=== PATIENT | female | born 1935 | race Hispanic/Latino ===

== ENCOUNTER → 2018-03-10 | Outpatient (CLI) | payer OTHER, MEDICARE ==
[~2018-03-10] MED LIST: ATEN50TA PO; CHLO25TA3 PO; CLON0.1T PO; DOCU100T9 PO; DRON400T2 PO; FURO40TA5 PO; NITR0.4T SL; ROSU20TA PO; SITA25TA5 PO; VERA300C2 PO
== END | disposition home or self-care (01) ==
LOC: SHCH 09:11
PROVIDERS: ATTEND Internal Medicine Cardiovascular Disease
DX: I50.20 Unspecified systolic (congestive) heart failure (principal)
CPT/HCPCS: 93306

== ENCOUNTER 2018-11-07 17:53 | Emergency (ER) | payer OTHER, MEDICARE ==
[~2018-11-07 17:53] MED LIST changes: -ROSU20TA PO; +ROSU20TA23 PO
[2018-11-07] MEDS ORDERED: OCTYL 2-CYANOACRYLATE 1 EACH TP ONE (18:08)
[2018-11-07] MEDS ORDERED: ACETAMINOPHEN EXTRA STRENGTH 500 MG TABLET ONE (18:37)
[2018-11-07] MEDS ORDERED: TETANUS/DIPHTHERIA TOXOID [ADULT] 0.5 ML VIAL IM ONE (18:42)
== END 2018-11-07 19:16 | disposition home or self-care (01) ==
LOC: EDH 17:53
DX: S51.811A Laceration without foreign body of right forearm, initial encounter (principal); M19.90 Unspecified osteoarthritis, unspecified site; I10 Essential (primary) hypertension; E11.9 Type 2 diabetes mellitus without complications; W01.0XXA Fall on same level from slipping, tripping and stumbling without subsequent striking against object, initial encounter; Y93.01 Activity, walking, marching and hiking; Y92.89 Other specified places as the place of occurrence of the external cause; Y99.8 Other external cause status
CPT/HCPCS: 12001; 73090; 73130; 90471; 90714

== ENCOUNTER 2018-12-10 10:23 | Observation (INO) | payer OTHER, MEDICARE ==
[~2018-12-10] VITALS: Ht 157.5 cm; Wt 74.8 kg
[2018-12-10 11:08] LABS: BASOPHILS % (AUTO) 0.2 % (0.0-5.0); HEMATOCRIT 33.9 % (36-48); LYMPHOCYTES % (AUTO) 3.9 % (21.0-51.0); MEAN CORPUSCULAR HEMOGLOBIN 30.2 pg (27.0-33.0); MEAN CORPUSCULAR HGB CONC 32.6 g/dL (32.0-36.0); MEAN CORPUSCULAR VOLUME 92.5 fL (79-99); MONOCYTES % (AUTO) 0.9 % (3.0-13.0); PLATELET COUNT (AUTO) 224 K/uL (130-400); RED BLOOD CELL COUNT(AUTO) 3.66 MIL/uL (4.00-5.50); RED CELL DISTRIBUTION WIDTH 18.2 % (11.0-15.5)
[2018-12-10 11:12] LABS: ALANINE AMINOTRANSFERASE 43 U/L (12-78); ALBUMIN 3.5 g/dL (3.5-5.0); ASPARTATE AMINOTRANSFERASE 32 U/L (10-37); BILIRUBIN,DIRECT 0.1 mg/dL (0.0-0.3); BILIRUBIN,TOTAL 0.4 mg/dL (0.2-1.0); CARBON DIOXIDE 27 mmol/L (21-32); CHLORIDE 94 mmol/L (101-111); CREATINE KINASE, TOTAL 183 U/L (21-232); CREATININE 3.7 mg/dL (0.5-1.5); GLOMERULAR FILTR. RATE CALC 12 mL/min (>60); GLUCOSE,RANDOM 255 mg/dL (70-105); LIPASE 440 U/L (114-286); POTASSIUM 4.5 mmol/L (3.5-5.1); SODIUM SERUM 132 mmol/L (136-145); TOTAL PROTEIN, SERUM 7.5 g/dL (6.0-8.3)
[2018-12-10 11:17] LABS: APPEARANCE,URINE Clear (CLEAR); BILIRUBIN,URINE Negative (NEGATIVE); COLOR,URINE Yellow (YELLOW); GLUCOSE, URINE (UA) Negative (NEGATIVE); KETONES,URINE Negative (NEGATIVE); LEUKOCYTE ESTERASE ,URINE Trace (NEGATIVE); NITRATE,URINE Negative (NEGATIVE); OCCULT BLOOD,URINE Negative (NEGATIVE); PH,URINE 5.5 (5.0-8.0); PROTEIN,URINE POS 2+ mg/dL (NEGATIVE)
[2018-12-10 11:25] LABS: UREA NITROGEN, BLOOD 87 mg/dL (7-18)
[2018-12-10] MEDS ORDERED: CALCIUM GLUCONATE 1 GM/10 ML VIAL IV ONE (11:56)
[2018-12-10 11:57] LABS: BACTERIA,URINE Rare /HPF (None Seen); SQUAMOUS EPITHELIAL CELL,UR Rare /HPF (0-2); WBC,URINE 0-1 /HPF (0-1)
[2018-12-10] MEDS ORDERED: SODIUM CHLORIDE 0.9% 100 ML IV ONE (11:57)
[2018-12-10] MEDS ORDERED: LACTATED RINGERS 1000ML 1,000 ML IV ONE ×2 (13:44→13:46)
[2018-12-10 14:15] VITALS: BP 187/99
--- NOTE | 2018-12-10 15:00 | NUR ---
ARRIVAL TO FLOOR PT IS AAOX4 DENIES CP DENIES SOB DENIES NV NO COMPLAINTS RESTING IN BED, ARRIVED WITH ORDERS. FAMILY IS AT BEDSIDE. CALL LIGHT WITHIN REACH.
[2018-12-10] MEDS ORDERED: CALC1CAP22 PO (15:01)
[2018-12-10] MEDS ORDERED: FURO40TA5 PO (15:01)
[2018-12-10] MEDS ORDERED: IRON18TA PO (15:01)
[2018-12-10] MEDS ORDERED: CETI10TA57 PO (15:01)
[2018-12-10] MEDS ORDERED: VIT B12 PO (15:01)
[2018-12-10] MEDS ORDERED: OMEP-50 PO (15:01)
[2018-12-10] MEDS ORDERED: ACETAMINOPHEN 325 MG TAB PO PRN (15:15)
[2018-12-10] MEDS ORDERED: DEXTROSE 50%-WATER 50 ML DISP.SYRIN IV PRN (15:15)
[2018-12-10] MEDS ORDERED: GLUCAGON 1MG KIT 1 MG ML IM PRN (15:15)
[2018-12-10] MEDS ORDERED: ONDANSETRON HCL 4 MG/2 ML VIAL IVP PRN (15:15)
[2018-12-10] MEDS ORDERED: LACTATED RINGERS 1000ML 1,000 ML IV SCH (15:15)
[2018-12-10] MEDS ORDERED: HYDRALAZINE HCL 20 MG/ML VIAL IV PRN (15:15)
--- NOTE | 2018-12-10 15:30 | NUR ---
DR BARRETT MADE AWARE OF PATIENTS ARRIVAL TO FLOOR. STATES HE WILL COME BY LATER TO SEE PATIENT.
[2018-12-10 16:00] VITALS: BP 170/75
[2018-12-10] MEDS: INSULIN R PO SS1 SQ SCH ×2 (16:27→20:43)
--- NOTE | 2018-12-10 17:30 | NUR ---
STATUS RESTING IN BED, TOLERATED DINNER, FAMILY IS AT BEDSIDE.
[2018-12-10 19:03] VITALS: BP 149/77
[2018-12-10] MEDS: CALCIUM 600 + VITAMIN D 400 TABLET PO SCH (20:38)
[2018-12-10 23:39] VITALS: BP 164/83
[2018-12-11] VITALS (7 sets, daily range): BP systolic 145–201; BP diastolic 68–83
[2018-12-11] MEDS: INSULIN R PO SS1 SQ SCH ×4 (05:58→21:00)
[2018-12-11] MEDS: CALCIUM 600 + VITAMIN D 400 TABLET PO SCH ×3 (09:15→20:41)
[2018-12-11] MEDS ORDERED: PRED20 PO (11:32)
[2018-12-11] MEDS ORDERED: [UNRECOGNIZED DRUG - OTHER] PO (11:36)
--- NOTE | 2018-12-11 12:47 | NUR ---
RE: NEPHRO CONSULT SPOKE WITH DR. BARRETT AND INFORMED OF THE CONSULT. SEE NEW ORDERS. SAID THAT HE WILL SEE PATIENT TODAY.
[2018-12-11] MEDS ORDERED: CALCIUM GLUCONATE 1 GM in SODIUM CHLORIDE 0.9% 50 ML IV SCH (14:00)
[2018-12-11] MEDS ORDERED: CALCIUM CARBONATE 500 MG TABLET PO SCH (14:00)
[2018-12-11 14:51] LABS: CARBON DIOXIDE 27 mmol/L (21-32); CHLORIDE 95 mmol/L (101-111); CREATININE 2.6 mg/dL (0.5-1.5); GLOMERULAR FILTR. RATE CALC 19 mL/min (>60); GLUCOSE,RANDOM 203 mg/dL (70-105); POTASSIUM 3.4 mmol/L (3.5-5.1); SODIUM SERUM 132 mmol/L (136-145); UREA NITROGEN, BLOOD 69 mg/dL (7-18)
[2018-12-11] MEDS: CALCIUM GLUCONATE 1 GM in SODIUM CHLORIDE 0.9% 50 ML IV PRN (14:58)
--- NOTE | 2018-12-11 19:36 | NUR ---
cm note met with patient and daughter velma, pt states resides with son diana moya, no dme. pt independent with ambulation, does have a provider 3 1/2hrs daily to assist with adls. no dc needs. dc plan is back to home Addendum: 12/11/18 at 1938 by ANASTASIYA GILLIS CM Amended: Links added.
[2018-12-11] MEDS ORDERED: CLONIDINE HCL 0.1 MG TABLET PO PRN (20:00)
[2018-12-11] MEDS ORDERED: NITROGLYCERIN 0.4 MG SL TAB SL SCH (20:00)
[2018-12-11] MEDS ORDERED: DRONEDARONE HYDROCHLORIDE 400 MG TABLET PO SCH (21:00)
[2018-12-11] MEDS ORDERED: FERROUS SULFATE 325 MG TABLET.DR PO SCH (21:00)
[2018-12-11] MEDS ORDERED: DOCUSATE SODIUM 100 MG CAP PO SCH (21:00)
[2018-12-11] MEDS ORDERED: ATENOLOL 50 MG TABLET PO SCH (21:00)
[2018-12-11] MEDS ORDERED: CYANOCOBALAMIN (VITAMIN B-12) 1,000 MCG TABLET PO SCH (21:00)
[2018-12-11] MEDS ORDERED: Chlorthalidone 25 MG PO SCH (21:00)
[2018-12-11] MEDS ORDERED: CETIRIZINE HCL 5 MG TABLET PO SCH (21:00)
[2018-12-11] MEDS ORDERED: ATORVASTATIN CALCIUM 40 MG TABLET PO SCH (21:00)
[2018-12-11] MEDS ORDERED: PANTOPRAZOLE SODIUM 40 MG TABLET.DR PO SCH (21:00)
[2018-12-11] MEDS ORDERED: LINAGLIPTIN 5 MG TABLET PO SCH (21:00)
[2018-12-11] MEDS: [UNRECOGNIZED DRUG - OTHER] PO SCH (21:04)
[2018-12-12 03:19] VITALS: BP_SYST 130; BP_SYST 139; BP_DIAS 50; BP_DIAS 87
[2018-12-12 04:14] LABS: ALBUMIN 2.7 g/dL (3.5-5.0); CREATININE 2.5 mg/dL (0.5-1.5); PHOSPHORUS 5.4 mg/dL (2.5-4.9); POTASSIUM 3.8 mmol/L (3.5-5.1)
[2018-12-12] MEDS: INSULIN R PO SS1 SQ SCH ×2 (06:18→11:30)
[2018-12-12 07:37] VITALS: BP 157/63
[2018-12-12] MEDS: CALCIUM GLUCONATE 1 GM in SODIUM CHLORIDE 0.9% 50 ML IV PRN ×2 (08:44→09:49)
[2018-12-12] MEDS: [UNRECOGNIZED DRUG - OTHER] PO SCH (08:51)
[2018-12-12] MEDS ORDERED: CALCIUM 600 + VITAMIN D 400 TABLET PO SCH (09:00)
[2018-12-12] MEDS ORDERED: CALCIUM GLUCONATE 1 GM in DEXTROSE 5%-WATER 50 ML IV PRN (10:00)
--- NOTE | 2018-12-12 11:21 | NUR ---
DR. Lala HAILE IN ROOM SPEAKING WITH PT. AND PT.'S FAMILY MEMBERS AT BEDSIDE RE:PLAN OF CARE. QUESTIONS ANSWERED BY DR. Lala HAILE.
[2018-12-12 11:32] VITALS: BP 164/60
--- NOTE | 2018-12-12 12:48 | NUR ---
AMBULATING IN HALLWAY WITH STEADY GAIT ACCOMPANIED BY DAUGHTER.
--- NOTE | 2018-12-12 13:58 | NUR ---
DR. Mynor BARRETT IN ROOM SPEAKING WITH PT. AND FAMILY MEMBERS AT BEDSIDE RE:DISCHARGE DISPOSITION. QUESTIONS ANSWERED BY DR. BARRETT.
--- NOTE | 2018-12-12 14:35 | NUR ---
HL REMOVED, CATHETER INTACT. DISCHARGE INSTRUCTIONS GIVEN TO PT. AND PT.'S DAUGHTER AT BEDSIDE, VERBALIZED MUTUAL UNDERSTANDING.
--- NOTE | 2018-12-12 15:54 | NUR ---
DISCHARGED HOME VIA W/C WITH BELONGINGS ACCOMPANIED BY SARMAD GIRALDO.
== END 2018-12-12 15:53 | disposition home or self-care (01) ==
LOC: EDH 10:23 → 2AH 13:19
PROVIDERS: ADMIT Internal Medicine Pulmonary Disease; ATTEND Internal Medicine Pulmonary Disease
DX: E83.51 Hypocalcemia (principal); I12.0 Hypertensive chronic kidney disease with stage 5 chronic kidney disease or end stage renal disease; E11.22 Type 2 diabetes mellitus with diabetic chronic kidney disease; N18.5 Chronic kidney disease, stage 5; E03.9 Hypothyroidism, unspecified; E11.21 Type 2 diabetes mellitus with diabetic nephropathy; D64.9 Anemia, unspecified; E66.01 Morbid (severe) obesity due to excess calories; E86.0 Dehydration; Z79.4 Long term (current) use of insulin; Z79.899 Other long term (current) drug therapy; Z68.30 Body mass index [BMI] 30.0-30.9, adult
CPT/HCPCS: 36415 ×3; 80048 ×2; 80069; 80076; 81001; 82306 ×2; 82330 ×2; 82550; 82948 ×9; 83690; 83735; 83970; 84484; 85025; 93005; 96365; 96366; 96372 ×2; 96375; 96376; 99284; G0378 ×51; J0360; J0610 ×3; J1815 ×2; J7120 ×2

== ENCOUNTER 2018-12-25 16:09 | Observation (INO) | payer OTHER, MEDICARE ==
[~2018-12-25] VITALS: Ht 154.9 cm; Wt 78.1 kg
[~2018-12-25 16:09] MED LIST changes: +CALC1CAP22 PO; +CETI10TA57 PO; -FURO40TA5 PO; +IRON18TA PO; +OMEP-50 PO; +VIT B12 PO; +[UNRECOGNIZED DRUG - OTHER] PO
[2018-12-25 16:31] LABS: BASOPHILS % (AUTO) 0.6 % (0.0-5.0); EOSINOPHILS % (AUTO) 4.2 % (0.0-8.0); HEMATOCRIT 33.7 % (36-48); LYMPHOCYTES % (AUTO) 9.3 % (21.0-51.0); MEAN CORPUSCULAR HEMOGLOBIN 30.5 pg (27.0-33.0); MEAN CORPUSCULAR HGB CONC 32.8 g/dL (32.0-36.0); MEAN CORPUSCULAR VOLUME 93.1 fL (79-99); NEUTROPHILS % (AUTO) 77.9 % (40.0-77.0); NUCLEATED RED BLOOD CELLS 0.1 % (0.0-0.19); PLATELET COUNT (AUTO) 254 K/uL (130-400); RED BLOOD CELL COUNT(AUTO) 3.61 MIL/uL (4.00-5.50); RED CELL DISTRIBUTION WIDTH 17.1 % (11.0-15.5); WHITE BLOOD COUNT (AUTO) 9.7 K/uL (4.8-10.8)
[2018-12-25] MEDS ORDERED: ASPIRIN 325 MG TABLET ONE (16:31)
[2018-12-25 16:42] LABS: CREATININE 2.6 mg/dL (0.5-1.5); POTASSIUM 3.8 mmol/L (3.5-5.1)
[2018-12-25 16:44] LABS: INR 0.97 (0.85-1.15); PARTIAL THROMBOPLASTIN TIME 30.3 SEC (26.3-35.5); PROTHROMBIN TIME 10.2 SEC (9.6-11.6)
[2018-12-25 16:47] LABS: ALBUMIN 3.5 g/dL (3.5-5.0); BILIRUBIN,TOTAL 0.4 mg/dL (0.2-1.0); TOTAL PROTEIN, SERUM 7.1 g/dL (6.0-8.3)
[2018-12-25] MEDS ORDERED: FUROSEMIDE 10 MG/ML 4ML VIAL ONE (16:59)
[2018-12-25] MEDS ORDERED: NITROGLYCERIN 1GM/1 INCH PACKET TD ONE (17:00)
[2018-12-25 17:05] LABS: APPEARANCE,URINE Clear (CLEAR); BILIRUBIN,URINE Negative (NEGATIVE); COLOR,URINE Yellow (YELLOW); GLUCOSE, URINE (UA) Negative (NEGATIVE); KETONES,URINE Negative (NEGATIVE); LEUKOCYTE ESTERASE ,URINE Negative (NEGATIVE); NITRATE,URINE Negative (NEGATIVE); OCCULT BLOOD,URINE Negative (NEGATIVE); PH,URINE 7.5 (5.0-8.0); PROTEIN,URINE POS 2+ mg/dL (NEGATIVE); UROBILINOGEN,URINE 0.2 mg/dL (0.2-1.0)
[2018-12-25 17:15] LABS: B-TYPE NATRIURETIC PEPTIDE 735 pg/mL (0-100)
[2018-12-25 17:22] LABS: BACTERIA,URINE Rare /HPF (None Seen); RBC,URINE 0-1 /HPF (0-1); SQUAMOUS EPITHELIAL CELL,UR Rare /HPF (0-2); WBC,URINE 0-1 /HPF (0-1)
[2018-12-25] MEDS ORDERED: HYDRALAZINE HCL 25 MG TABLET ONE (17:46)
[2018-12-25 19:54] LABS: ABG BASE EXCESS -0.3 mmol/L (-2.0-3.0); ABG HCO3 24.3 mmol/L (21.0-28.0); ABG OXYGEN SATURATION 94.4 % (95.0-99.0); ABG PCO2 40 mmHg (32-45)
[2018-12-25] MEDS ORDERED: ACETAMINOPHEN 325 MG TAB PO PRN (20:00)
[2018-12-25] MEDS ORDERED: HYDRALAZINE HCL 20 MG/ML VIAL IV PRN (20:00)
[2018-12-25] MEDS ORDERED: ONDANSETRON HCL 4 MG/2 ML VIAL IVP PRN (20:00)
[2018-12-25] MEDS ORDERED: HYDRALAZINE HCL 20 MG/ML VIAL ONE (20:07)
[2018-12-25 21:35] VITALS: BP 149/64
[2018-12-25 22:41] LABS: CREATINE KINASE, TOTAL 38 U/L (21-232); MYOGLOBIN 96 ng/mL (10-92); TROPONIN I < 0.04 ng/mL (0.00-0.06)
[2018-12-26] VITALS (7 sets, daily range): BP systolic 135–192; BP diastolic 56–80
[2018-12-26 06:48] LABS: CREATINE KINASE, TOTAL 32 U/L (21-232); MYOGLOBIN 119 ng/mL (10-92); TROPONIN I < 0.04 ng/mL (0.00-0.06)
[2018-12-26] MEDS: ENOXAPARIN SODIUM 30 MG/0.3 ML SQ SCH (08:46)
[2018-12-26] MEDS ORDERED: PANTOPRAZOLE SODIUM 40 MG TABLET.DR PO SCH ×2 (09:00→21:00)
--- NOTE | 2018-12-26 11:09 | NUR ---
NOTIFIED DR. BARRETT OFFICE AND SPOKE TO AIMEE (HOGSHEAD ROLLER) REGARDING CONSULT.
--- NOTE | 2018-12-26 14:35 | NUR ---
INITIAL MET W FAMILY/ DAUGHTER AT THE BEDSIDE PT LIVES WITH SONNAYELI IS THE PROVIDER, MARY BETH GUZMAN SUPPLIES TRANSPORT; PT USES NO DME BUT HAS A RAMP. AND PROVIDER SERVICES 19 HRS PER WEEK. HOME IS SFE AND ACCESSBLE, DCP IS HOME DCM TO FOLLOW Addendum: 12/27/18 at 1736 by WANG ROSARIO RN CM Amended: Links added.
[2018-12-26] MEDS ORDERED: CLONIDINE HCL 0.1 MG TABLET PO PRN (15:00)
[2018-12-26] MEDS ORDERED: NITROGLYCERIN 0.4 MG SL TAB SL SCH (15:00)
[2018-12-26] MEDS ORDERED: NEOMY SULF/BACITRAC ZN/POLY OINT 30GM TUBE TP PRN (15:45)
--- NOTE | 2018-12-26 16:00 | NUR ---
INITIAL MET W PT AND DAUGHTER AT BEDIDE- PT HERE FOR HTN, CHEST PAIN- LIVES WITH [facility]Y [facility], SON APRIL IS PROVIDER, DAUGHTER THOMAS PROVIDES TRANSPORT; PT INDP OF ADLS, HAS PROVIDER HRS 20/WK NO DME NEEDS, HAS RAMP AND HANDCAPPED RESTROOM; DCP IS HOME , CM WILL FOLLOW Addendum: 12/27/18 at 1808 by WANG ROSARIO RN CM Amended: Links added.
[2018-12-26] MEDS ORDERED: BISACODYL 5 MG TABLET.DR PO PRN (18:45)
[2018-12-26] MEDS ORDERED: CETIRIZINE HCL 5 MG TABLET PO SCH (21:00)
[2018-12-26] MEDS ORDERED: LINAGLIPTIN 5 MG TABLET PO SCH (21:00)
[2018-12-26] MEDS ORDERED: VERAPAMIL HCL 300 MG PO SCH (21:00)
[2018-12-26] MEDS ORDERED: DOCUSATE SODIUM 100 MG CAP PO SCH (21:00)
[2018-12-26] MEDS ORDERED: DRONEDARONE HYDROCHLORIDE 400 MG TABLET PO SCH (21:00)
[2018-12-26] MEDS ORDERED: HYDROCHLOROTHIAZIDE 25 MG TABLET PO SCH (21:00)
[2018-12-26] MEDS ORDERED: FERROUS SULFATE 325 MG TABLET.DR PO SCH (21:00)
[2018-12-26] MEDS ORDERED: ATENOLOL 50 MG TABLET PO SCH (21:00)
[2018-12-26] MEDS ORDERED: CYANOCOBALAMIN (VITAMIN B-12) 1,000 MCG TABLET PO SCH (21:00)
[2018-12-26] MEDS ORDERED: ATORVASTATIN CALCIUM 40 MG TABLET PO SCH (21:00)
--- NOTE | 2018-12-26 22:15 | NUR ---
SKIN ASSESSMENT PATIENT WITH HEALING SCAR TO RIGHT LOWER FOREARM. Addendum: 12/27/18 at 0040 by DANIEL DANIELSON RN RN Amended: Links added.
[2018-12-26] MEDS: CALCIUM 600 + VITAMIN D 400 TABLET PO SCH (22:19)
[2018-12-26] MEDS: HYDRALAZINE HCL 25 MG TABLET PO SCH (22:20)
[2018-12-27 03:30] VITALS: BP 130/60
[2018-12-27 08:00] VITALS: BP 176/70
[2018-12-27] MEDS: CALCIUM 600 + VITAMIN D 400 TABLET PO SCH (08:32)
[2018-12-27] MEDS: HYDRALAZINE HCL 25 MG TABLET PO SCH ×2 (08:32→14:38)
[2018-12-27] MEDS: ENOXAPARIN SODIUM 30 MG/0.3 ML SQ SCH (08:33)
[2018-12-27 11:59] VITALS: BP 157/63
[2018-12-27] MEDS ORDERED: NIFEDIPINE ER 30 MG TAB PO SCH (12:00)
--- NOTE | 2018-12-27 14:30 | NUR ---
DR. BARRETT HERE TO SEE PATIENT. STATED PATIENT COULD GO HOME THIS EVENING ONCE BP WAS LOWER THAN 140 SYSTOLIC . CURRENTLY BP AT 179/73- 58 HEART RATE. VOICES NO COMPLAINT OF CHEST PAIN OR DISCOMFORT. WILL KEEP MONITORING BP AND INFORM PRIMARY FOR DISCHARGE ORDERS.
[2018-12-27 16:00] VITALS: BP 134/53
--- NOTE | 2018-12-27 16:00 | NUR ---
NOTIFIED ANASTASIYA MURPHY NP REGARDING BLOOD PRESSURE AT 134/53-63. INFORMED BY HER THAT SHE WOULD PUT THE ORDERS FOR DISCHARGE IN.
[2018-12-27] MEDS ORDERED: NIFE30TA91 PO (16:05)
== END 2018-12-27 17:10 | disposition home or self-care (01) ==
LOC: EDH 16:09 → EDHIP 19:00 → 3CH 21:31
PROVIDERS: ADMIT Internal Medicine Critical Care Medicine; ATTEND Internal Medicine Critical Care Medicine
DX: I12.9 Hypertensive chronic kidney disease with stage 1 through stage 4 chronic kidney disease, or unspecified chronic kidney disease (principal); N18.4 Chronic kidney disease, stage 4 (severe); M19.90 Unspecified osteoarthritis, unspecified site; E11.21 Type 2 diabetes mellitus with diabetic nephropathy; E11.22 Type 2 diabetes mellitus with diabetic chronic kidney disease; Z82.49 Family history of ischemic heart disease and other diseases of the circulatory system; D63.1 Anemia in chronic kidney disease; I16.0 Hypertensive urgency; E83.51 Hypocalcemia; Z79.899 Other long term (current) drug therapy
CPT/HCPCS: 36415 ×2; 36600; 71045; 80053; 81001; 82330; 82550 ×3; 82803; 82948 ×7; 83874 ×2; 83880; 84484 ×3; 85025; 85610; 85730; 93005; 96372 ×2; 99291; G0378 ×46; J0360; J1650 ×2; J1940

== ENCOUNTER → 2019-02-06 | Outpatient (CLI) | payer OTHER, MEDICARE ==
[~2019-02-06] MED LIST changes: +NIFE30TA91 PO; -VERA300C2 PO; +VERA300C4 PO
== END | disposition home or self-care (01) ==
LOC: SHCH 09:50
PROVIDERS: ATTEND Internal Medicine Cardiovascular Disease
DX: I11.9 Hypertensive heart disease without heart failure (principal)
CPT/HCPCS: 93306

== ENCOUNTER 2019-07-21 11:03 | Observation (INO) | payer OTHER, MEDICARE ==
[~2019-07-21] VITALS: Ht 157.5 cm; Wt 72.6 kg
[~2019-07-21 11:03] MED LIST changes: +NIFE-40 PO; -NIFE30TA91 PO; -OMEP-50 PO; +OMEP20CA12 PO
[2019-07-21 11:41] LABS: BASOPHILS % (AUTO) 0.3 % (0.0-5.0); EOSINOPHILS % (AUTO) 3.2 % (0.0-8.0); HEMATOCRIT 29.9 % (36-48); LYMPHOCYTES % (AUTO) 10.9 % (21.0-51.0); MEAN CORPUSCULAR HGB CONC 32.1 g/dL (32.0-36.0); MEAN CORPUSCULAR VOLUME 93.4 fL (79-99); MONOCYTES % (AUTO) 5.5 % (3.0-13.0); NEUTROPHILS % (AUTO) 79.6 % (40.0-77.0); PLATELET COUNT (AUTO) 176 K/uL (130-400); RED CELL DISTRIBUTION WIDTH 13.1 % (11.0-15.5); WHITE BLOOD COUNT (AUTO) 10.6 K/uL (4.8-10.8)
[2019-07-21 11:51] LABS: INR 0.95 (0.85-1.15); PARTIAL THROMBOPLASTIN TIME 26.8 SEC (26.3-35.5); PROTHROMBIN TIME 10.3 SEC (9.6-11.6)
[2019-07-21 11:52] LABS: ALBUMIN 3.6 g/dL (3.5-5.0); BILIRUBIN,TOTAL 0.3 mg/dL (0.2-1.0); CREATININE 4.6 mg/dL (0.5-1.5); TOTAL PROTEIN, SERUM 7.6 g/dL (6.0-8.3)
[2019-07-21] MEDS ORDERED: SODIUM CHLORIDE 0.9% 500ML 500 ML IV ONE (12:01)
[2019-07-21] MEDS ORDERED: GLUCAGON 1MG KIT 1 MG ML IM PRN (14:45)
[2019-07-21] MEDS ORDERED: ONDANSETRON HCL 4 MG/2 ML VIAL IVP PRN (14:45)
[2019-07-21] MEDS ORDERED: DEXTROSE 50%-WATER 50 ML DISP.SYRIN IV PRN (14:45)
[2019-07-21] MEDS ORDERED: CALC0.253 PO (14:47)
[2019-07-21] MEDS ORDERED: FURO40TA5 PO (14:47)
[2019-07-21] MEDS ORDERED: NITROGLYCERIN 0.4 MG SL TAB SL PRN (15:00)
[2019-07-21] MEDS: SODIUM CHLORIDE 0.9% 1000ML 1,000 ML IV SCH (15:08)
[2019-07-21] MEDS: MORPHINE SULFATE 2 MG/ML 1ML SYG IVP PRN (15:08)
[2019-07-21] MEDS ORDERED: LIDOCAINE HCL-MPF 1% 2ML VIAL IV PRN (15:15)
[2019-07-21] MEDS ORDERED: LACTULOSE 20 GM/30 ML UDCUP PO PRN (15:15)
[2019-07-21] MEDS ORDERED: ACETAMINOPHEN 325 MG TAB PO PRN ×2 (15:15)
[2019-07-21] MEDS ORDERED: POTASSIUM CHLORIDE 10% ELIXIR 20 MEQ/15 ML UDCUP PO PRN (15:15)
[2019-07-21] MEDS ORDERED: POTASSIUM CHLORIDE 20 MEQ ERTAB PO PRN (15:15)
[2019-07-21] MEDS ORDERED: HYDRALAZINE HCL 20 MG/ML VIAL IV PRN (15:15)
[2019-07-21] MEDS ORDERED: GUAIFENESIN-DM 200/20 MG 10 ML PO PRN (15:15)
[2019-07-21] MEDS ORDERED: DiphenhydrAMINE HCL 50 MG/ML VIAL IV PRN (15:15)
[2019-07-21] MEDS ORDERED: MAG HYDROX/AL HYDROX/SIMETH ES 30 ML SUSP UDCUP PO PRN (15:15)
[2019-07-21] MEDS ORDERED: POTASSIUM CHLORIDE 20MEQ/100ML 100 ML IV PRN (15:15)
[2019-07-21] MEDS ORDERED: DIPHENHYDRAMINE HCL 25 MG CAPSULE PO PRN (15:15)
[2019-07-21 16:00] VITALS: BP 139/55
--- NOTE | 2019-07-21 16:02 | NUR ---
DR. MORAN ROUNDED. NEW ORDER DISCONTINUE CARDIO CONSULT.
--- NOTE | 2019-07-21 16:04 | NUR ---
CALL OUT PLACED TO DR. BARRETT OFFICE, SPOKE WITH JAMILAH MADE AWARE OF NEW CONSULT
[2019-07-21] MEDS: INSULIN R PO SSI SQ SCH ×2 (16:30→21:00)
[2019-07-21 19:58] VITALS: BP 146/70
[2019-07-21 20:18] LABS: APPEARANCE,URINE Clear (CLEAR); BILIRUBIN,URINE Negative (NEGATIVE); COLOR,URINE Yellow (YELLOW); GLUCOSE, URINE (UA) Negative (NEGATIVE); KETONES,URINE Negative (NEGATIVE); LEUKOCYTE ESTERASE ,URINE Negative (NEGATIVE); NITRATE,URINE Negative (NEGATIVE); OCCULT BLOOD,URINE Negative (NEGATIVE); PROTEIN,URINE POS 1+ mg/dL (NEGATIVE); UROBILINOGEN,URINE 0.2 mg/dL (0.2-1.0)
[2019-07-21 20:30] LABS: BACTERIA,URINE Rare /HPF (None Seen); RBC,URINE 0-1 /HPF (0-1); SQUAMOUS EPITHELIAL CELL,UR Rare /HPF (0-2)
[2019-07-21] MEDS: HEPARIN SODIUM 5000UNIT/ML 1ML VIAL SQ SCH (21:30)
[2019-07-21 23:36] VITALS: BP 158/66
[2019-07-22] MEDS: SODIUM CHLORIDE 0.9% 1000ML 1,000 ML IV SCH ×2 (02:14→16:51)
[2019-07-22] MEDS: MORPHINE SULFATE 2 MG/ML 1ML SYG IVP PRN ×2 (03:33→10:25)
[2019-07-22 04:30] VITALS: BP 163/63
[2019-07-22 06:31] LABS: BASOPHILS % (AUTO) 0.4 % (0.0-5.0); HEMATOCRIT 27.8 % (36-48); LYMPHOCYTES % (AUTO) 10.4 % (21.0-51.0); MEAN CORPUSCULAR HEMOGLOBIN 30.6 pg (27.0-33.0); MEAN CORPUSCULAR HGB CONC 32.4 g/dL (32.0-36.0); MEAN CORPUSCULAR VOLUME 94.6 fL (79-99); MONOCYTES % (AUTO) 7.1 % (3.0-13.0); NEUTROPHILS % (AUTO) 78.5 % (40.0-77.0); PLATELET COUNT (AUTO) 168 K/uL (130-400); RED BLOOD CELL COUNT(AUTO) 2.94 MIL/uL (4.00-5.50); RED CELL DISTRIBUTION WIDTH 13.2 % (11.0-15.5); WHITE BLOOD COUNT (AUTO) 10.3 K/uL (4.8-10.8)
[2019-07-22] MEDS: INSULIN R PO SSI SQ SCH ×4 (06:36→21:00)
[2019-07-22 06:54] LABS: CREATININE 3.8 mg/dL (0.5-1.5); POTASSIUM 3.9 mmol/L (3.5-5.1)
[2019-07-22 07:30] VITALS: BP 186/70
--- NOTE | 2019-07-22 08:14 | NUR ---
PATIENT BP 186/70, C/O PAIN TO LEFT ARM, PAGED HAYLIE BARBOSA GROUP CONTROLLER, PENDING CALL BACK
[2019-07-22] MEDS ORDERED: CLONIDINE HCL 0.1 MG TABLET PO PRN (09:00)
[2019-07-22] MEDS: FAMOTIDINE 20MG TAB 20 MG TAB PO SCH ×2 (09:00→21:00)
[2019-07-22] MEDS: NIFEDIPINE ER 30 MG TAB PO SCH (10:24)
[2019-07-22] MEDS: ATENOLOL 50 MG TABLET PO SCH (10:24)
[2019-07-22] MEDS: CALCITRIOL 0.25 MCG CAPSULE PO SCH (10:25)
[2019-07-22] MEDS: HEPARIN SODIUM 5000UNIT/ML 1ML VIAL SQ SCH ×2 (10:32→21:46)
[2019-07-22] MEDS: LIDOCAINE 5% TOPICAL PATCH TP SCH (10:36)
[2019-07-22 11:00] VITALS: BP 154/70
[2019-07-22] MEDS: PREDNISONE 20 MG TABLET PO SCH (15:57)
[2019-07-22 16:00] VITALS: BP 159/61
[2019-07-22 19:30] VITALS: BP 152/75
[2019-07-22] MEDS ORDERED: DRONEDARONE HYDROCHLORIDE 400 MG TABLET PO SCH (21:00)
[2019-07-22] MEDS ORDERED: ATENOLOL 50 MG TABLET PO SCH (21:00)
[2019-07-22] MEDS ORDERED: VERAPAMIL HCL 240 MG SRTAB PO SCH (21:00)
[2019-07-23] VITALS: BP 152/73
[2019-07-23 04:00] VITALS: BP 143/65
[2019-07-23 05:46] LABS: ALBUMIN 2.9 g/dL (3.5-5.0); CREATININE 3.1 mg/dL (0.5-1.5); PHOSPHORUS 3.9 mg/dL (2.5-4.9); POTASSIUM 4.4 mmol/L (3.5-5.1); URIC ACID 9.1 mg/dL (2.6-7.2)
[2019-07-23] MEDS: SODIUM CHLORIDE 0.9% 1000ML 1,000 ML IV SCH ×2 (06:27→11:44)
[2019-07-23] MEDS: INSULIN R PO SSI SQ SCH ×2 (06:27→11:30)
[2019-07-23 07:46] VITALS: BP 157/64
[2019-07-23] MEDS: FAMOTIDINE 20MG TAB 20 MG TAB PO SCH (08:52)
[2019-07-23] MEDS: NIFEDIPINE ER 30 MG TAB PO SCH (08:58)
[2019-07-23] MEDS: CALCITRIOL 0.25 MCG CAPSULE PO SCH (08:58)
[2019-07-23] MEDS: PREDNISONE 20 MG TABLET PO SCH (08:58)
[2019-07-23 08:59] VITALS: BP 157/64
[2019-07-23] MEDS: LIDOCAINE 5% TOPICAL PATCH TP SCH (08:59)
[2019-07-23] MEDS: ATENOLOL 50 MG TABLET PO SCH (08:59)
[2019-07-23] MEDS: HEPARIN SODIUM 5000UNIT/ML 1ML VIAL SQ SCH (09:05)
[2019-07-23] MEDS ORDERED: PRED20B PO (12:38)
[2019-07-23] MEDS ORDERED: LIDOP TP (12:38)
--- NOTE | 2019-07-23 14:03 | NUR ---
DISCHARGE INSTRUCTIONS GIVEN TO PATIENT, PATIENTS DAUGHTER AT BEDSIDE. MADE AWARE OF NEW RX FOR LIDOCAINE PATCHES AND PREDNISONE. AWARE OF NEED TO FOLLOW UP WITH PCP 2-[address] BARRETT IN 1-2 WEEKS. PATIENT AT THIS TIME DENIES CHEST PAIN, DENIES LEFT ARM PAIN, DENIES SHORTNESS OF BREATH. LEFT ARM SLING IN PLACE. INSTRUCTED ON AFTER CARE. IV AND TELE REMOVED. PATIENT WILL BE TAKEN HOME BY FAMILY
[2019-07-24] MEDS ORDERED: PREDNISONE 20 MG TABLET PO SCH (09:00)
== END 2019-07-23 14:45 | disposition home or self-care (01) ==
LOC: EDH 11:03 → EDHIP 13:24 → 4DH 14:07
PROVIDERS: ADMIT Internal Medicine Pulmonary Disease; ATTEND Internal Medicine Pulmonary Disease
DX: I12.0 Hypertensive chronic kidney disease with stage 5 chronic kidney disease or end stage renal disease (principal); N18.5 Chronic kidney disease, stage 5; E11.22 Type 2 diabetes mellitus with diabetic chronic kidney disease; D63.8 Anemia in other chronic diseases classified elsewhere; E78.5 Hyperlipidemia, unspecified; I48.0 Paroxysmal atrial fibrillation; I44.0 Atrioventricular block, first degree; M19.90 Unspecified osteoarthritis, unspecified site; N17.9 Acute kidney failure, unspecified
CPT/HCPCS: 36415 ×3; 71045; 73060; 73221; 80048; 80053; 80069; 81001; 82550; 82948 ×7; 84484 ×4; 84550; 85025 ×2; 85610; 85730; 93005 ×3; 93971; 96372 ×3; 96374; 96376; 99285; A4565; G0378 ×36; J1644 ×4; J7040

== ENCOUNTER 2019-07-24 16:39 | Inpatient (IN) | payer OTHER, MEDICARE ==
[~2019-07-24] VITALS: Ht 154.9 cm; Wt 67.4 kg
[~2019-07-24 16:39] MED LIST changes: -ATEN50TA PO; +CALC0.253 PO; -CHLO25TA3 PO; -DOCU100T9 PO; -DRON400T2 PO; +FURO40TA5 PO; +LIDOP TP; -NITR0.4T SL; +PRED20B PO; -ROSU20TA23 PO; -SITA25TA5 PO; -VERA300C4 PO
[2019-07-24] MEDS ORDERED: NITROGLYCERIN 1GM/1 INCH PACKET TD ONE (17:02)
[2019-07-24] MEDS ORDERED: ASPIRIN 325 MG TABLET ONE (17:02)
[2019-07-24 17:13] LABS: ABG HCO3 21.2 mmol/L (21.0-28.0); ABG OXYGEN SATURATION 96.1 % (95.0-99.0); ABG PCO2 39 mmHg (32-45)
[2019-07-24 17:26] LABS: BASOPHILS % (AUTO) 0.3 % (0.0-5.0); EOSINOPHILS % (AUTO) 0.1 % (0.0-8.0); HEMATOCRIT 28.7 % (36-48); LYMPHOCYTES % (AUTO) 2.6 % (21.0-51.0); MEAN CORPUSCULAR HGB CONC 31.7 g/dL (32.0-36.0); MEAN CORPUSCULAR VOLUME 94.7 fL (79-99); MONOCYTES % (AUTO) 4.3 % (3.0-13.0); NEUTROPHILS % (AUTO) 91.6 % (40.0-77.0); NUCLEATED RED BLOOD CELLS 0.5 % (0.0-0.19); PLATELET COUNT (AUTO) 269 K/uL (130-400); RED BLOOD CELL COUNT(AUTO) 3.03 MIL/uL (4.00-5.50); RED CELL DISTRIBUTION WIDTH 13.6 % (11.0-15.5); WHITE BLOOD COUNT (AUTO) 22.3 K/uL (4.8-10.8)
[2019-07-24 17:40] LABS: CREATININE 3.4 mg/dL (0.5-1.5); POTASSIUM 4.3 mmol/L (3.5-5.1)
[2019-07-24 17:41] LABS: INR 0.95 (0.85-1.15); PARTIAL THROMBOPLASTIN TIME 26.8 SEC (26.3-35.5); PROTHROMBIN TIME 10.3 SEC (9.6-11.6)
[2019-07-24 17:44] LABS: ALBUMIN 3.6 g/dL (3.5-5.0); BILIRUBIN,TOTAL 0.4 mg/dL (0.2-1.0); TOTAL PROTEIN, SERUM 7.7 g/dL (6.0-8.3)
[2019-07-24] MEDS ORDERED: DOXYCYCLINE HYCLATE 100 MG TABLET PO ONE (19:47)
[2019-07-24] MEDS ORDERED: CEFTRIAXONE SODIUM 1 GM ONE (19:47)
[2019-07-24] MEDS ORDERED: FUROSEMIDE 10 MG/ML 4ML VIAL ONE (19:47)
[2019-07-24] MEDS ORDERED: ONDANSETRON HCL 4 MG/2 ML VIAL IVP PRN (20:45)
[2019-07-24] MEDS ORDERED: ACETAMINOPHEN 325 MG TAB PO PRN (20:45)
[2019-07-24] MEDS ORDERED: DEXTROSE 50%-WATER 50 ML DISP.SYRIN IV PRN (20:45)
[2019-07-24] MEDS ORDERED: NITROGLYCERIN 0.4 MG SL TAB SL PRN (20:45)
[2019-07-24] MEDS ORDERED: GLUCAGON 1MG KIT 1 MG ML IM PRN (20:45)
[2019-07-24 22:50] VITALS: BP 136/57
[2019-07-24] MEDS: DOXYCYCLINE HYCLATE 100 MG TABLET PO SCH (22:50)
[2019-07-24] MEDS: INSULIN R PO SS1 SQ SCH (22:50)
[2019-07-25 04:00] VITALS: BP 133/62
[2019-07-25] MEDS ORDERED: VERA300C4 PO (06:17)
[2019-07-25] MEDS ORDERED: SITA25TA5 PO (06:18)
[2019-07-25] MEDS ORDERED: ROSU20TA23 PO (06:19)
[2019-07-25] MEDS ORDERED: ATEN50TA PO (06:20)
[2019-07-25 06:28] LABS: HEMATOCRIT 24.5 % (36-48); MEAN CORPUSCULAR HEMOGLOBIN 30.4 pg (27.0-33.0); MEAN CORPUSCULAR HGB CONC 32.2 g/dL (32.0-36.0); MEAN CORPUSCULAR VOLUME 94.2 fL (79-99); NUCLEATED RED BLOOD CELLS 0.2 % (0.0-0.19); PLATELET COUNT (AUTO) 224 K/uL (130-400); RED CELL DISTRIBUTION WIDTH 13.5 % (11.0-15.5); WHITE BLOOD COUNT (AUTO) 15.5 K/uL (4.8-10.8)
[2019-07-25] MEDS: INSULIN R PO SS1 SQ SCH ×4 (06:28→21:00)
[2019-07-25] MEDS: FUROSEMIDE 10 MG/ML 4ML VIAL IVP SCH ×2 (06:42→17:56)
[2019-07-25 08:00] VITALS: BP 138/68
[2019-07-25] MEDS: DOXYCYCLINE HYCLATE 100 MG TABLET PO SCH ×2 (08:09→21:15)
[2019-07-25] MEDS ORDERED: CLONIDINE HCL 0.1 MG TABLET PO PRN (11:15)
[2019-07-25 12:00] VITALS: BP 139/60
--- NOTE | 2019-07-25 12:42 | NUR ---
DCP CM met with pt and son discussed dc plans. Pt is independent prior to admission, lives at home w/son Demetri. Pt has a provider 19hrs/wk(son Demetri is pt's provider), handicap ramp in front. Denies any other equipments/services. Feels safe to go back home, daughter assists with transportation, son assists w/needs as necessary. DC plan to home once stable. CM to cont to follow up. Addendum: 07/25/19 at 1244 by JENNIFER GILLILAND LVN CM Amended: Links added.
--- NOTE | 2019-07-25 15:00 | NUR ---
CONSULT/DR BARRETT CALLED DR BARRETT OFFICE, SPOEK TO KARENREGARDING CONSULT. STATED DR BARRETT IS AWARE. PENDING CB
[2019-07-25 16:00] VITALS: BP 156/68
[2019-07-25 19:40] VITALS: BP 161/64
[2019-07-25] MEDS: CEFTRIAXONE SODIUM 1 GM IVP SCH (21:14)
[2019-07-25] MEDS: CALCIUM 600 + VITAMIN D 400 TABLET PO SCH (21:15)
[2019-07-25 23:57] VITALS: BP 164/76
[2019-07-26 03:55] VITALS: BP 162/69
[2019-07-26 05:25] LABS: HEMATOCRIT 25.2 % (36-48); MEAN CORPUSCULAR HEMOGLOBIN 30.2 pg (27.0-33.0); MEAN CORPUSCULAR HGB CONC 32.1 g/dL (32.0-36.0); NUCLEATED RED BLOOD CELLS 0.9 % (0.0-0.19); PLATELET COUNT (AUTO) 252 K/uL (130-400); RED BLOOD CELL COUNT(AUTO) 2.68 MIL/uL (4.00-5.50); RED CELL DISTRIBUTION WIDTH 13.8 % (11.0-15.5)
[2019-07-26 05:38] LABS: CREATININE 3.5 mg/dL (0.5-1.5); MAGNESIUM 1.7 mg/dL (1.80-2.40); PHOSPHORUS 2.8 mg/dL (2.5-4.9); POTASSIUM 4.1 mmol/L (3.5-5.1)
[2019-07-26] MEDS: INSULIN R PO SS1 SQ SCH ×4 (06:26→20:47)
[2019-07-26] MEDS ORDERED: NIFEDIPINE ER 30 MG TAB PO ONE (06:27)
[2019-07-26] MEDS ORDERED: ATENOLOL 50 MG TABLET ONE (06:28)
[2019-07-26] MEDS: FUROSEMIDE 10 MG/ML 4ML VIAL IVP SCH ×2 (06:28→16:56)
[2019-07-26] MEDS: NIFEDIPINE ER 30 MG TAB PO SCH (06:29)
[2019-07-26 08:15] VITALS: BP 144/70
[2019-07-26] MEDS ORDERED: ATENOLOL 50 MG TABLET PO SCH (09:00)
[2019-07-26] MEDS: LIDOCAINE 5% TOPICAL PATCH TP SCH (09:00)
[2019-07-26] MEDS: CALCIUM 600 + VITAMIN D 400 TABLET PO SCH ×2 (09:58→20:46)
[2019-07-26] MEDS: CALCITRIOL 0.25 MCG CAPSULE PO SCH (09:59)
[2019-07-26] MEDS: PREDNISONE 20 MG TABLET PO SCH (09:59)
[2019-07-26] MEDS: DOXYCYCLINE HYCLATE 100 MG TABLET PO SCH ×2 (09:59→20:46)
[2019-07-26] MEDS: ATORVASTATIN CALCIUM 40 MG TABLET PO SCH (09:59)
[2019-07-26 11:32] VITALS: BP 159/65
[2019-07-26 17:44] VITALS: BP 139/66
[2019-07-26 20:00] VITALS: BP 138/63
[2019-07-26] MEDS: CEFTRIAXONE SODIUM 1 GM IVP SCH (20:46)
[2019-07-27] VITALS: BP 143/79
[2019-07-27 03:55] VITALS: BP 136/90
--- NOTE | 2019-07-27 04:22 | NUR ---
Spoke to GRICEL Lau regarding patient converting to AFib 70's to 80's hear rate with no complaints of chest pain or shortness of breath. He ordered lovenox .75 mg per kg q12 hours. Orders were placed. Will monitor patient closely.
[2019-07-27] MEDS: INSULIN R PO SS1 SQ SCH ×4 (06:32→21:02)
[2019-07-27] MEDS: FUROSEMIDE 10 MG/ML 4ML VIAL IVP SCH ×2 (06:38→17:24)
[2019-07-27 08:00] VITALS: BP 159/72
[2019-07-27] MEDS: CALCITRIOL 0.25 MCG CAPSULE PO SCH (08:50)
[2019-07-27] MEDS: DOXYCYCLINE HYCLATE 100 MG TABLET PO SCH (08:50)
[2019-07-27] MEDS: NIFEDIPINE ER 30 MG TAB PO SCH (08:50)
[2019-07-27] MEDS: PREDNISONE 20 MG TABLET PO SCH (08:50)
[2019-07-27] MEDS: ATORVASTATIN CALCIUM 40 MG TABLET PO SCH (08:51)
[2019-07-27] MEDS: ATENOLOL 50 MG TABLET PO SCH (08:51)
[2019-07-27] MEDS: ENOXAPARIN SODIUM 60 MG/0.6 ML SQ SCH ×2 (08:52→20:53)
[2019-07-27] MEDS: CALCIUM 600 + VITAMIN D 400 TABLET PO SCH ×2 (08:52→20:52)
[2019-07-27] MEDS: LIDOCAINE 5% TOPICAL PATCH TP SCH (08:59)
[2019-07-27] MEDS ORDERED: DRONEDARONE HYDROCHLORIDE 400 MG TABLET PO SCH (09:00)
[2019-07-27] MEDS: DRONEDARONE HYDROCHLORIDE 400 MG TABLET PO SCH ×2 (09:42→20:52)
[2019-07-27 11:12] LABS: HEMATOCRIT 27.8 % (36-48); MEAN CORPUSCULAR HEMOGLOBIN 30.3 pg (27.0-33.0); MEAN CORPUSCULAR HGB CONC 32.7 g/dL (32.0-36.0); MEAN CORPUSCULAR VOLUME 92.7 fL (79-99); NUCLEATED RED BLOOD CELLS 0.5 % (0.0-0.19); PLATELET COUNT (AUTO) 326 K/uL (130-400); RED CELL DISTRIBUTION WIDTH 13.5 % (11.0-15.5); WHITE BLOOD COUNT (AUTO) 17.7 K/uL (4.8-10.8)
[2019-07-27 11:13] LABS: CREATININE 3.3 mg/dL (0.5-1.5)
[2019-07-27 12:00] VITALS: BP 124/76
[2019-07-27 16:00] VITALS: BP 150/52
[2019-07-27 20:00] VITALS: BP 144/80
[2019-07-28] VITALS: BP 144/82
[2019-07-28 04:00] VITALS: BP 140/87
[2019-07-28 05:10] LABS: HEMATOCRIT 26.5 % (36-48); LYMPHOCYTES % (AUTO) 5.8 % (21.0-51.0); MEAN CORPUSCULAR HEMOGLOBIN 30.8 pg (27.0-33.0); MEAN CORPUSCULAR HGB CONC 33.6 g/dL (32.0-36.0); MEAN CORPUSCULAR VOLUME 91.7 fL (79-99); MONOCYTES % (AUTO) 5.4 % (3.0-13.0); NEUTROPHILS % (AUTO) 87.8 % (40.0-77.0); NUCLEATED RED BLOOD CELLS 0.4 % (0.0-0.19); PLATELET COUNT (AUTO) 294 K/uL (130-400); RED BLOOD CELL COUNT(AUTO) 2.89 MIL/uL (4.00-5.50); RED CELL DISTRIBUTION WIDTH 13.3 % (11.0-15.5)
[2019-07-28 05:29] LABS: B-TYPE NATRIURETIC PEPTIDE 1320 pg/mL (0-100)
[2019-07-28 05:58] LABS: POTASSIUM 3.3 mmol/L (3.5-5.1)
[2019-07-28] MEDS: INSULIN R PO SS1 SQ SCH ×4 (06:48→20:46)
[2019-07-28] MEDS: FUROSEMIDE 10 MG/ML 4ML VIAL IVP SCH ×2 (06:54→18:02)
[2019-07-28 07:47] VITALS: BP 148/73
[2019-07-28] MEDS ORDERED: PREDNISONE 20 MG TABLET PO SCH (09:00)
[2019-07-28] MEDS: CALCIUM 600 + VITAMIN D 400 TABLET PO SCH ×2 (11:43→20:47)
[2019-07-28] MEDS: NIFEDIPINE ER 30 MG TAB PO SCH (11:43)
[2019-07-28] MEDS: ATORVASTATIN CALCIUM 40 MG TABLET PO SCH (11:43)
[2019-07-28] MEDS: CALCITRIOL 0.25 MCG CAPSULE PO SCH (11:43)
[2019-07-28] MEDS: ATENOLOL 50 MG TABLET PO SCH (11:43)
[2019-07-28] MEDS: LIDOCAINE 5% TOPICAL PATCH TP SCH (11:44)
[2019-07-28 11:56] VITALS: BP 141/84
[2019-07-28] MEDS ORDERED: APIXABAN 2.5 MG TABLET PO ONE (12:41)
[2019-07-28 15:23] VITALS: BP 140/89
--- NOTE | 2019-07-28 19:30 | NUR ---
PM Assessment Received pt alone lying in bed, routine assessment done, plan of care discuss, pt stated that per Dr. Colby inform her she can be discharge in AM. Pt made aware that she is pending CXR & lab works in AM. Verified with pt if she uses oxygen at home claimed no, made aware I will try to wean her oxygen slowly & will ask tomorrow for the 6 minutes test to see if she will qualify for home O2. Pt stated that she felt a lot better at this time, denies any discomfort.
[2019-07-28 20:00] VITALS: BP 145/91
[2019-07-28] MEDS: APIXABAN 2.5 MG TABLET PO SCH (20:45)
[2019-07-29] VITALS (7 sets, daily range): BP systolic 121–157; BP diastolic 63–98
[2019-07-29 05:57] LABS: HEMATOCRIT 27.1 % (36-48); MEAN CORPUSCULAR HEMOGLOBIN 29.8 pg (27.0-33.0); MEAN CORPUSCULAR HGB CONC 32.5 g/dL (32.0-36.0); MEAN CORPUSCULAR VOLUME 91.9 fL (79-99); NUCLEATED RED BLOOD CELLS 0.1 % (0.0-0.19); PLATELET COUNT (AUTO) 306 K/uL (130-400); RED BLOOD CELL COUNT(AUTO) 2.95 MIL/uL (4.00-5.50); RED CELL DISTRIBUTION WIDTH 13.8 % (11.0-15.5); WHITE BLOOD COUNT (AUTO) 15.6 K/uL (4.8-10.8)
[2019-07-29 06:11] LABS: CREATININE 2.9 mg/dL (0.5-1.5); POTASSIUM 3.4 mmol/L (3.5-5.1)
[2019-07-29] MEDS: INSULIN R PO SS1 SQ SCH ×4 (06:54→20:22)
[2019-07-29] MEDS: FUROSEMIDE 10 MG/ML 4ML VIAL IVP SCH (06:57)
[2019-07-29] MEDS: LIDOCAINE 5% TOPICAL PATCH TP SCH (09:00)
[2019-07-29] MEDS: APIXABAN 2.5 MG TABLET PO SCH ×2 (09:41→20:21)
[2019-07-29] MEDS: CALCIUM 600 + VITAMIN D 400 TABLET PO SCH ×2 (09:41→20:21)
[2019-07-29] MEDS: NIFEDIPINE ER 30 MG TAB PO SCH (09:41)
[2019-07-29] MEDS: ATENOLOL 50 MG TABLET PO SCH ×2 (09:47→20:21)
[2019-07-29] MEDS: CALCITRIOL 0.25 MCG CAPSULE PO SCH (09:48)
[2019-07-29] MEDS: ATORVASTATIN CALCIUM 40 MG TABLET PO SCH (09:48)
[2019-07-29] MEDS: DRONEDARONE HYDROCHLORIDE 400 MG TABLET PO SCH ×2 (12:09→20:22)
[2019-07-29] MEDS: FUROSEMIDE 40 MG TABLET PO SCH (16:49)
--- NOTE | 2019-07-29 19:20 | NUR ---
PM Assessment Received pt alone, in bed, routine assessment done, made aware scheduled for cardioversion in AM with Dr. Garg. Pt confirmed awareness & understanding of this plan. Pt c/o of slight chest discomfort, scale 2/10, made aware that I will start her with new medications ordered by Dr. Garg & if this won't relieved chest discomfort,I will give her Nitro SL, agreed.
[2019-07-30 04:01] VITALS: BP 129/75
[2019-07-30 05:00] LABS: HEMATOCRIT 27.3 % (36-48); MEAN CORPUSCULAR HEMOGLOBIN 30.6 pg (27.0-33.0); MEAN CORPUSCULAR HGB CONC 33.3 g/dL (32.0-36.0); MEAN CORPUSCULAR VOLUME 91.9 fL (79-99); PLATELET COUNT (AUTO) 289 K/uL (130-400); RED BLOOD CELL COUNT(AUTO) 2.97 MIL/uL (4.00-5.50); RED CELL DISTRIBUTION WIDTH 13.5 % (11.0-15.5); WHITE BLOOD COUNT (AUTO) 13.9 K/uL (4.8-10.8)
[2019-07-30] MEDS: INSULIN R PO SS1 SQ SCH ×4 (05:15→21:00)
[2019-07-30 05:27] LABS: CREATININE 2.9 mg/dL (0.5-1.5); POTASSIUM 3.5 mmol/L (3.5-5.1)
[2019-07-30] MEDS ORDERED: FENTANYL CITRATE PF 50 MCG/1 ML 2ML VIAL IVP ONE (07:00)
[2019-07-30] MEDS ORDERED: MIDAZOLAM HCL 1 MG/ML 2ML VIAL IVP ONE (07:00)
--- NOTE | 2019-07-30 07:30 | NUR ---
Order for transfer Spoke to Jonathan Morel NP for [facility] and informed patient scheduled for DC cardioversion. Order received via telephone/RB to transfer to [facility].
--- NOTE | 2019-07-30 07:55 | NUR ---
Transferred to room 225 Report given to nurse Pablo
--- NOTE | 2019-07-30 08:10 | NUR ---
Dr. Hipolito Garg MD paged to inform patient to be transferred to room 225.
[2019-07-30] MEDS ORDERED: MIDAZOLAM HCL 1 MG/ML 2ML VIAL ONE (08:14)
[2019-07-30] MEDS ORDERED: FENTANYL CITRATE PF 50 MCG/1 ML 5ML AMP IV ONE (08:15)
[2019-07-30] MEDS ORDERED: SODIUM CHLORIDE 0.9% 500ML 500 ML IV ONE (08:23)
[2019-07-30 08:37] VITALS: BP 141/100
[2019-07-30] MEDS ORDERED: PREDNISONE 10 MG TABLET PO SCH (09:00)
[2019-07-30] MEDS: LIDOCAINE 5% TOPICAL PATCH TP SCH (09:00)
[2019-07-30] MEDS: ATORVASTATIN CALCIUM 40 MG TABLET PO SCH (09:29)
[2019-07-30] MEDS: CALCITRIOL 0.25 MCG CAPSULE PO SCH (09:29)
[2019-07-30] MEDS: APIXABAN 2.5 MG TABLET PO SCH ×2 (09:29→20:41)
[2019-07-30] MEDS: NIFEDIPINE ER 30 MG TAB PO SCH (09:29)
[2019-07-30] MEDS: FUROSEMIDE 40 MG TABLET PO SCH ×2 (09:30→17:23)
[2019-07-30] MEDS: ATENOLOL 50 MG TABLET PO SCH ×2 (09:30→20:41)
[2019-07-30] MEDS: DRONEDARONE HYDROCHLORIDE 400 MG TABLET PO SCH ×2 (09:30→20:41)
[2019-07-30] MEDS: CALCIUM 600 + VITAMIN D 400 TABLET PO SCH ×2 (09:31→20:41)
--- NOTE | 2019-07-30 10:08 | NUR ---
DR AZALIA OLSON HERE FOR CARDIOVERSION OF PATIENT AND SUCCESSFUL AFTER SHOCK FROM DEFIBRILLATOR. PATIENT SEDATED AND SLEEPING AND MONITORING VITAL SIGNS CLOSELY UNTIL PATIENT FULLY AWAKE. PATIENT CONVERTED TO SINUS RHYTHM WITH PAC'S AT THIS POINT AND WILL CONTINUE TO MONITOR. REGIONAL PROJECT MANAGER AWARE. Addendum: 07/30/19 at 1018 by FEDERICA SOLORIO RN RN Amended: Links added.
[2019-07-30 12:15] VITALS: BP 158/70
[2019-07-30 16:00] VITALS: BP 137/62
[2019-07-30 20:12] VITALS: BP 171/71
[2019-07-30 23:40] VITALS: BP 145/65
[2019-07-31 03:57] VITALS: BP 156/67
[2019-07-31] MEDS: INSULIN R PO SS1 SQ SCH ×3 (05:57→16:22)
[2019-07-31 07:00] VITALS: BP 163/78
[2019-07-31] MEDS: LIDOCAINE 5% TOPICAL PATCH TP SCH (09:38)
[2019-07-31] MEDS: CALCIUM 600 + VITAMIN D 400 TABLET PO SCH (09:39)
[2019-07-31] MEDS: CALCITRIOL 0.25 MCG CAPSULE PO SCH (09:39)
[2019-07-31] MEDS: APIXABAN 2.5 MG TABLET PO SCH (09:39)
[2019-07-31] MEDS: DRONEDARONE HYDROCHLORIDE 400 MG TABLET PO SCH (09:40)
[2019-07-31] MEDS: ATORVASTATIN CALCIUM 40 MG TABLET PO SCH (09:41)
[2019-07-31] MEDS: FUROSEMIDE 40 MG TABLET PO SCH (09:41)
[2019-07-31] MEDS: NIFEDIPINE ER 30 MG TAB PO SCH (09:41)
[2019-07-31] MEDS: ATENOLOL 50 MG TABLET PO SCH (09:41)
[2019-07-31 11:00] VITALS: BP 149/66
--- NOTE | 2019-07-31 12:39 | NUR ---
JENNIFER SCREEN - LOS X 7 Pt admitted for CHF exacerbation. Pt tolerating 75gm CCD at this time. Recommend to add Heart Healthy diet modification. Pt reports no GI distress, however dislikes food. Updated food preferences. Pt says son primarily provides food/meals at home. RD to follow up with Nutrition education ([facility]). RD to continue to monitor. Please notify RD as additional nutrition concerns arise. Thank you. Addendum: 07/31/19 at [address] RD Amended: Links added.
[2019-07-31] MEDS ORDERED: ATEN50TA PO (13:55)
[2019-07-31] MEDS ORDERED: DRON400T2 PO (13:55)
[2019-07-31] MEDS ORDERED: APIX2.5T PO (13:55)
[2019-07-31 15:59] VITALS: BP 133/59
== END 2019-07-31 16:52 | disposition home or self-care (01) | DRG 291 ==
LOC: EDH 16:39 → EDHIP 20:03 → 3CH 22:44 → UNDODISIN 07-26 16:59 → 2DH 07-30 08:05
PROVIDERS: ADMIT Internal Medicine; ATTEND Internal Medicine
PROC: 5A2204Z Restoration of Cardiac Rhythm, Single (ICD-10-PCS; principal; 2019-07-30)
DX: I13.2 Hypertensive heart and chronic kidney disease with heart failure and with stage 5 chronic kidney disease, or end stage renal disease (principal); I50.33 Acute on chronic diastolic (congestive) heart failure; N18.5 Chronic kidney disease, stage 5; E87.1 Hypo-osmolality and hyponatremia; I48.19 Other persistent atrial fibrillation; E11.22 Type 2 diabetes mellitus with diabetic chronic kidney disease; I48.0 Paroxysmal atrial fibrillation; D63.1 Anemia in chronic kidney disease; E78.5 Hyperlipidemia, unspecified; I05.0 Rheumatic mitral stenosis; I25.10 Atherosclerotic heart disease of native coronary artery without angina pectoris; I27.20 Pulmonary hypertension, unspecified; I49.1 Atrial premature depolarization; M10.9 Gout, unspecified; M19.90 Unspecified osteoarthritis, unspecified site; Z79.01 Long term (current) use of anticoagulants; Z79.84 Long term (current) use of oral hypoglycemic drugs; Z79.899 Other long term (current) drug therapy; Z82.49 Family history of ischemic heart disease and other diseases of the circulatory system; Z90.710 Acquired absence of both cervix and uterus; Z90.49 Acquired absence of other specified parts of digestive tract
CPT/HCPCS: 36415; 36600; 71045; 71250; 73060; 73221; 74021; 80048; 80053; 80069; 81001; 82270; 82550; 82803; 82948; 83735; 83880; 84100; 84484; 84550; 85025; 85027; 85610; 85730; 87040; 87486; 87581; 87633; 87798; 87804; 87807; 93005; 93306; 93308; 93356; 93971; 96372; 96374; 96376; 99291; A4565; G0378; J0696; J1644; J1650; J1815; J1940; J2250; J3010; J7040

== ENCOUNTER 2020-07-15 09:48 | Observation (INO) | payer OTHER, MEDICARE ==
[~2020-07-15] VITALS: Ht 154.9 cm; Wt 68.0 kg
[~2020-07-15 09:48] MED LIST changes: +APIX2.5T PO; +ATEN50TA PO; +DRON400T2 PO; -IRON18TA PO; -LIDOP TP; -PRED20B PO; +ROSU20TA23 PO; +SITA25TA5 PO; -VIT B12 PO
[2020-07-15 10:21] LABS: BASOPHILS % (AUTO) 0.6 % (0.0-5.0); EOSINOPHILS % (AUTO) 3.6 % (0.0-8.0); HEMATOCRIT 29.1 % (36-48); LYMPHOCYTES % (AUTO) 14.1 % (21.0-51.0); MEAN CORPUSCULAR HEMOGLOBIN 29.1 pg (27.0-33.0); MEAN CORPUSCULAR HGB CONC 32.6 g/dL (32.0-36.0); MEAN CORPUSCULAR VOLUME 89.3 fL (79-99); MONOCYTES % (AUTO) 13.2 % (3.0-13.0); NEUTROPHILS % (AUTO) 67.8 % (40.0-77.0); PLATELET COUNT (AUTO) 191 K/uL (130-400); RED BLOOD CELL COUNT(AUTO) 3.26 MIL/uL (4.00-5.50); RED CELL DISTRIBUTION WIDTH 13.4 % (11.0-15.5); WHITE BLOOD COUNT (AUTO) 9.5 K/uL (4.8-10.8)
[2020-07-15 10:39] LABS: ALBUMIN 3.4 g/dL (3.5-5.0); BILIRUBIN,TOTAL 0.3 mg/dL (0.2-1.0); CREATININE 4.7 mg/dL (0.5-1.5); TOTAL PROTEIN, SERUM 7.2 g/dL (6.0-8.3)
[2020-07-15 10:50] LABS: POTASSIUM 3.3 mmol/L (3.5-5.1)
[2020-07-15] MEDS ORDERED: SODIUM CHLORIDE 0.9% 500ML 500 ML IV ONE (11:33)
[2020-07-15] MEDS ORDERED: LACTULOSE 20 GM/30 ML UDCUP PO PRN (12:00)
[2020-07-15] MEDS ORDERED: ONDANSETRON HCL 4 MG/2 ML VIAL IVP PRN (12:00)
[2020-07-15] MEDS ORDERED: CLONIDINE HCL 0.1 MG TABLET PO PRN (12:00)
[2020-07-15] MEDS ORDERED: SODIUM CHLORIDE 0.9% 1000ML 1,000 ML IV SCH (14:45)
[2020-07-15 15:15] LABS: CREATINE KINASE, TOTAL 46 U/L (21-232); MYOGLOBIN 131 ng/mL (10-92); TROPONIN I < 0.04 ng/mL (0.00-0.06)
[2020-07-15] MEDS ORDERED: SODIUM CHLORIDE 0.9% 1000ML 1,000 ML IV ONE (15:29)
[2020-07-15] MEDS ORDERED: METOCLOPRAMIDE 10 MG TABLET ONE (15:29)
[2020-07-15 16:02] LABS: APPEARANCE,URINE Clear (CLEAR); BILIRUBIN,URINE Negative (NEGATIVE); COLOR,URINE Yellow (YELLOW); GLUCOSE, URINE (UA) Negative (NEGATIVE); KETONES,URINE Negative (NEGATIVE); LEUKOCYTE ESTERASE ,URINE Negative (NEGATIVE); NITRATE,URINE Negative (NEGATIVE); OCCULT BLOOD,URINE Trace (NEGATIVE); PH,URINE 5.5 (5.0-8.0); PROTEIN,URINE Negative (NEGATIVE); UROBILINOGEN,URINE 0.2 mg/dL (0.2-1.0)
[2020-07-15 16:12] LABS: BACTERIA,URINE Rare /HPF (None Seen); RBC,URINE 0-1 /HPF (0-1); SQUAMOUS EPITHELIAL CELL,UR Rare /HPF (0-2); WBC,URINE 0-1 /HPF (0-1)
[2020-07-15 16:30] VITALS: BP 173/94
[2020-07-15] MEDS: METOCLOPRAMIDE 5 MG TABLET PO SCH ×2 (16:30→20:13)
[2020-07-15] MEDS ORDERED: PRED20TA3 PO (19:30)
[2020-07-15] MEDS ORDERED: NIFE60TA81 PO (19:30)
[2020-07-15] MEDS ORDERED: ATOR40TA69 PO (19:55)
[2020-07-15] MEDS ORDERED: NIFE-39 PO (19:55)
[2020-07-15] MEDS ORDERED: DRON400T2 PO (19:55)
[2020-07-15 20:00] VITALS: BP 169/77
[2020-07-15 20:15] LABS: CREATINE KINASE, TOTAL 51 U/L (21-232); MYOGLOBIN 152 ng/mL (10-92); TROPONIN I < 0.04 ng/mL (0.00-0.06)
[2020-07-15] MEDS ORDERED: DEXTROSE 50%-WATER 50 ML DISP.SYRIN IV PRN (20:30)
[2020-07-15] MEDS ORDERED: GLUCAGON 1MG KIT 1 MG ML IM PRN (20:30)
[2020-07-15] MEDS: INSULIN HUMULIN R 100 UNIT/ML 3ML SQ SCH (20:38)
[2020-07-15] MEDS ORDERED: FUROSEMIDE 10 MG/ML 4ML VIAL IV SCH (21:00)
[2020-07-15 21:31] VITALS: BP 135/67
[2020-07-15] MEDS: FERROUS SULFATE 325 MG TABLET.DR PO SCH (21:31)
[2020-07-15] MEDS: ATENOLOL 50 MG TABLET PO SCH (21:31)
[2020-07-15] MEDS: ATORVASTATIN CALCIUM 40 MG TABLET PO SCH (21:36)
[2020-07-15] MEDS ORDERED: POTASSIUM CHLORIDE 20 MEQ ERTAB PO SCH (23:30)
[2020-07-16] VITALS: BP 156/61
[2020-07-16 02:41] LABS: INR 1.1 (0.85-1.15); PROTHROMBIN TIME 11.9 SEC (9.6-11.6)
[2020-07-16 02:47] LABS: CARBON DIOXIDE 23 mmol/L (21-32); CHLORIDE 95 mmol/L (101-111); CREATINE KINASE, TOTAL 82 U/L (21-232); CREATININE 4.2 mg/dL (0.5-1.5); GLOMERULAR FILTR. RATE CALC 11 mL/min (>60); GLUCOSE,RANDOM 96 mg/dL (70-105); MYOGLOBIN 371 ng/mL (10-92); PHOSPHORUS 4.5 mg/dL (2.5-4.9); POTASSIUM 3.8 mmol/L (3.5-5.1); SODIUM SERUM 130 mmol/L (136-145); TROPONIN I < 0.04 ng/mL (0.00-0.06)
[2020-07-16 02:48] LABS: UREA NITROGEN, BLOOD 82 mg/dL (7-18)
[2020-07-16 04:00] VITALS: BP 154/62
[2020-07-16 04:10] LABS: % IRON SATURATION 29.2 % (22-44)
[2020-07-16] MEDS: INSULIN HUMULIN R 100 UNIT/ML 3ML SQ SCH ×2 (05:42→11:26)
[2020-07-16] MEDS: METOCLOPRAMIDE 5 MG TABLET PO SCH ×2 (06:03→11:30)
[2020-07-16 07:30] VITALS: BP 144/46
[2020-07-16] MEDS: ATORVASTATIN CALCIUM 40 MG TABLET PO SCH (08:37)
[2020-07-16] MEDS: FERROUS SULFATE 325 MG TABLET.DR PO SCH (08:37)
[2020-07-16] MEDS: ATENOLOL 50 MG TABLET PO SCH (08:38)
[2020-07-16] MEDS ORDERED: PANTOPRAZOLE SODIUM 40 MG TABLET.DR PO SCH (09:00)
[2020-07-16] MEDS ORDERED: FUROSEMIDE 40 MG TABLET PO SCH (09:00)
[2020-07-16] MEDS ORDERED: ENOXAPARIN SODIUM 30 MG/0.3 ML SQ SCH (09:00)
[2020-07-16] MEDS ORDERED: AMOX250S73 PO (10:23)
[2020-07-16] MEDS ORDERED: METO5 PO (10:23)
[2020-07-16 11:00] VITALS: BP 158/53
[2020-07-16 12:23] LABS: CREATINE KINASE, TOTAL 115 U/L (21-232); MYOGLOBIN 303 ng/mL (10-92)
[2020-07-16] MEDS ORDERED: NIFEDIPINE ER 30 MG TAB PO SCH (21:00)
== END 2020-07-16 14:00 | disposition home or self-care (01) ==
LOC: EDH 09:48 → EDHIP 11:55 → 3DH 16:49
PROVIDERS: ADMIT Internal Medicine Critical Care Medicine; ATTEND Internal Medicine Critical Care Medicine
DX: R53.1 Weakness (principal); Z20.822 Contact with and (suspected) exposure to COVID-19; E86.0 Dehydration; J02.9 Acute pharyngitis, unspecified; R07.89 Other chest pain; I12.0 Hypertensive chronic kidney disease with stage 5 chronic kidney disease or end stage renal disease; E11.22 Type 2 diabetes mellitus with diabetic chronic kidney disease; N18.5 Chronic kidney disease, stage 5; N17.9 Acute kidney failure, unspecified; D63.1 Anemia in chronic kidney disease; E87.1 Hypo-osmolality and hyponatremia; E87.6 Hypokalemia; I25.10 Atherosclerotic heart disease of native coronary artery without angina pectoris; E78.5 Hyperlipidemia, unspecified; M19.90 Unspecified osteoarthritis, unspecified site; Z90.710 Acquired absence of both cervix and uterus; Z79.01 Long term (current) use of anticoagulants; Z79.899 Other long term (current) drug therapy
CPT/HCPCS: 36415 ×2; 71045; 80053; 80069; 81001; 82550 ×4; 82728; 82948 ×3; 83540; 83550; 83874 ×4; 83880; 84484 ×4; 85025; 85378; 85610; 87088; 87426; 93005 ×2; 96372; 96374; 99285; G0378 ×26; J1650; J1940; J7030; J7040; U0003

== ENCOUNTER 2020-07-19 22:52 | Inpatient (IN) | payer OTHER, MEDICARE ==
[~2020-07-19] VITALS: Ht 154.9 cm; Wt 66.9 kg
[~2020-07-19 22:52] MED LIST changes: +AMOX250S73 PO; +ATOR40TA69 PO; -CALC1CAP22 PO; -DRON400T2 PO; +DRON400T7 PO; +METO5 PO; +NIFE-39 PO; -NIFE-40 PO; +PRED20TA3 PO; -ROSU20TA23 PO; -[UNRECOGNIZED DRUG - OTHER] PO
[2020-07-19] MEDS ORDERED: MORPHINE 2 MG SYG ONE (22:58)
[2020-07-19] MEDS ORDERED: ONDANSETRON 4MG INJ ONE (22:58)
[2020-07-19] MEDS ORDERED: ORPHENADRINE CITRATE 30 MG/ML ML ONE (23:05)
[2020-07-19 23:09] LABS: BASOPHILS % (AUTO) 0.5 % (0.0-5.0); EOSINOPHILS % (AUTO) 2.4 % (0.0-8.0); HEMATOCRIT 24.7 % (36-48); LYMPHOCYTES % (AUTO) 13.9 % (21.0-51.0); MEAN CORPUSCULAR HEMOGLOBIN 29.8 pg (27.0-33.0); MEAN CORPUSCULAR HGB CONC 34.4 g/dL (32.0-36.0); MEAN CORPUSCULAR VOLUME 86.7 fL (79-99); MONOCYTES % (AUTO) 6.9 % (3.0-13.0); NEUTROPHILS % (AUTO) 74.7 % (40.0-77.0); PLATELET COUNT (AUTO) 301 K/uL (130-400); RED BLOOD CELL COUNT(AUTO) 2.85 MIL/uL (4.00-5.50); RED CELL DISTRIBUTION WIDTH 13.2 % (11.0-15.5); WHITE BLOOD COUNT (AUTO) 15.6 K/uL (4.8-10.8)
[2020-07-19 23:22] LABS: ALBUMIN 3.4 g/dL (3.5-5.0); BILIRUBIN,TOTAL 0.3 mg/dL (0.2-1.0); CREATININE 4.7 mg/dL (0.5-1.5); POTASSIUM 4.1 mmol/L (3.5-5.1); TOTAL PROTEIN, SERUM 7.3 g/dL (6.0-8.3)
[2020-07-19 23:23] LABS: INR 1.1 (0.85-1.15); PROTHROMBIN TIME 11.9 SEC (9.6-11.6)
[2020-07-19 23:24] LABS: PARTIAL THROMBOPLASTIN TIME 33.5 SEC (26.3-35.5)
[2020-07-20 00:15] LABS: APPEARANCE,URINE Clear (CLEAR); BILIRUBIN,URINE Negative (NEGATIVE); COLOR,URINE Yellow (YELLOW); GLUCOSE, URINE (UA) Negative (NEGATIVE); KETONES,URINE Negative (NEGATIVE); LEUKOCYTE ESTERASE ,URINE Negative (NEGATIVE); NITRATE,URINE Negative (NEGATIVE); OCCULT BLOOD,URINE Negative (NEGATIVE); PROTEIN,URINE Negative (NEGATIVE); UROBILINOGEN,URINE 0.2 mg/dL (0.2-1.0)
[2020-07-20] MEDS ORDERED: ONDANSETRON 4MG INJ IV PRN (00:30)
[2020-07-20] MEDS ORDERED: HYDROMORPHONE 1 MG INJ IV PRN (00:30)
[2020-07-20] MEDS ORDERED: METOPROLOL TARTRATE 1 MG/ML 5ML VIAL IV PRN (04:30)
[2020-07-20] MEDS ORDERED: CLONIDINE HCL 0.1 MG TABLET PO PRN ×2 (04:30→17:45)
[2020-07-20] MEDS ORDERED: 0.9%NACL 1000ML 1,000 ML IV SCH (04:30)
[2020-07-20] MEDS ORDERED: SODIUM CHLORIDE 1,000 MG TAB PO SCH (05:30)
[2020-07-20] MEDS ORDERED: SODIUM CHLORIDE 1,000 MG TAB ONE (06:14)
[2020-07-20] MEDS ORDERED: 0.9%NACL 50ML 50 ML IV ONE (06:15)
[2020-07-20] MEDS ORDERED: AMPICILLIN/SULBAC 1.5GM VIAL ONE (06:15)
[2020-07-20] MEDS ORDERED: HYDROMORPHONE 0.5 MG SYG (0.5MG/0.5ML) ONE (07:25)
[2020-07-20] MEDS ORDERED: AMP/SULBAC 3GM+NS 100ML 100 ML IV SCH ×2 (08:15→21:00)
[2020-07-20 08:35] LABS: CREATININE 4.5 mg/dL (0.5-1.5)
[2020-07-20] MEDS ORDERED: FAMOTIDINE 20MG VIAL IV SCH (09:00)
[2020-07-20] MEDS ORDERED: FUROSEMIDE 40MG VIAL IV SCH (09:00)
[2020-07-20] MEDS ORDERED: ENOXAPARIN SODIUM 30 MG/0.3 ML SQ SCH (12:00)
[2020-07-20 14:56] VITALS: BP 171/66
[2020-07-20] MEDS: NIFEDIPINE ER 30 MG TAB PO SCH (16:37)
[2020-07-20 16:41] LABS: CREATININE 4.5 mg/dL (0.5-1.5); POTASSIUM 4.4 mmol/L (3.5-5.1)
[2020-07-20] MEDS: 0.9%NACL 1000ML 1,000 ML IV SCH (17:30)
[2020-07-20 17:32] VITALS: BP 142/73
[2020-07-20] MEDS ORDERED: PHARMACY COMMUNICATION MISC SCH (18:15)
[2020-07-20 19:12] LABS: ABG BASE EXCESS -6.4 mmol/L (-2.0-3.0); ABG HCO3 17.8 mmol/L (21.0-28.0); ABG OXYGEN SATURATION 96.8 % (95.0-99.0); ABG PCO2 32 mmHg (32-45)
[2020-07-20 19:50] VITALS: BP 153/81
[2020-07-20] MEDS: AMP/SULBAC 3GM+NS 100ML 100 ML IV SCH (20:45)
[2020-07-20] MEDS ORDERED: ATENOLOL 50 MG TABLET PO SCH (21:00)
[2020-07-20] MEDS: METOCLOPRAMIDE 5 MG TABLET PO SCH (21:22)
[2020-07-20] MEDS: ATORVASTATIN 20 MG TABLET PO SCH (21:22)
[2020-07-20] MEDS: SODIUM CHLORIDE 1,000 MG TAB PO SCH (21:23)
[2020-07-20] MEDS: ATENOLOL 50 MG TABLET PO SCH (21:25)
[2020-07-20] MEDS: HYDROMORPHONE 0.5 MG SYG (0.5MG/0.5ML) IVP PRN (21:34)
[2020-07-20 22:08] LABS: CREATININE 4.5 mg/dL (0.5-1.5)
[2020-07-20 23:50] VITALS: BP 134/70
[2020-07-21 04:04] VITALS: BP 125/69
[2020-07-21 06:10] LABS: CREATININE 4.2 mg/dL (0.5-1.5); POTASSIUM 4.1 mmol/L (3.5-5.1)
[2020-07-21] MEDS: METOCLOPRAMIDE 5 MG TABLET PO SCH ×5 (06:51→21:08)
[2020-07-21] MEDS ORDERED: NON-FORMULARY MEDICATION 1 EACH (Omeprazole 40 MG) PO SCH (07:30)
[2020-07-21] MEDS ORDERED: AMP/SULBAC 3GM+NS 100ML 100 ML IV SCH (08:00)
[2020-07-21] MEDS: PANTOPRAZOLE 40 MG TAB DR PO SCH (08:50)
[2020-07-21] MEDS: SODIUM CHLORIDE 1,000 MG TAB PO SCH ×2 (08:51→21:08)
[2020-07-21] MEDS: ATENOLOL 50 MG TABLET PO SCH (08:51)
[2020-07-21] MEDS: CALCITRIOL 0.25 MCG CAP PO SCH (08:51)
[2020-07-21] MEDS: CETIRIZINE HCL 5 MG TABLET PO SCH (08:51)
[2020-07-21] MEDS ORDERED: ATORVASTATIN 40 MG TABLET PO SCH (09:00)
[2020-07-21] MEDS ORDERED: NON-FORMULARY MEDICATION 1 EACH (Cetirizine HCl 10 MG) PO SCH (09:00)
[2020-07-21] MEDS ORDERED: NIFEDIPINE 60 MG PO SCH (09:00)
[2020-07-21] MEDS: DRONEDARONE HYDROCHLORIDE 400 MG TABLET PO SCH (09:18)
[2020-07-21] MEDS: HYDROMORPHONE 0.5 MG SYG (0.5MG/0.5ML) IVP PRN (09:22)
[2020-07-21 09:26] VITALS: BP 144/72
[2020-07-21 10:33] LABS: CREATININE 4.3 mg/dL (0.5-1.5); POTASSIUM 4.1 mmol/L (3.5-5.1)
[2020-07-21] MEDS ORDERED: SODIUM BICARBONATE 650 MG TAB PO PRN (11:00)
[2020-07-21 12:35] VITALS: BP 144/60
[2020-07-21] MEDS: 0.9%NACL 1000ML 1,000 ML IV SCH (13:30)
[2020-07-21 16:03] LABS: CREATININE 4.4 mg/dL (0.5-1.5); POTASSIUM 4.2 mmol/L (3.5-5.1)
[2020-07-21] MEDS: NIFEDIPINE ER 30 MG TAB PO SCH (16:31)
[2020-07-21 17:25] VITALS: BP 146/69
[2020-07-21 19:53] VITALS: BP 126/60
[2020-07-21] MEDS: AMP/SULBAC 3GM+NS 100ML 100 ML IV SCH (21:08)
[2020-07-21] MEDS: ATORVASTATIN 20 MG TABLET PO SCH (21:08)
[2020-07-21] MEDS: ACETAMINOPHEN 325 MG TAB PO PRN (21:09)
[2020-07-21 21:51] LABS: CREATININE 4.3 mg/dL (0.5-1.5); POTASSIUM 4.1 mmol/L (3.5-5.1)
[2020-07-21 23:49] VITALS: BP 131/52
[2020-07-22 03:20] VITALS: BP 129/50
[2020-07-22] MEDS: METOCLOPRAMIDE 5 MG TABLET PO SCH ×4 (05:42→20:45)
[2020-07-22] MEDS: ACETAMINOPHEN 325 MG TAB PO PRN ×2 (05:46→20:47)
[2020-07-22 05:47] LABS: HEMATOCRIT 21.9 % (36-48); MEAN CORPUSCULAR HGB CONC 32.9 g/dL (32.0-36.0); MEAN CORPUSCULAR VOLUME 88.3 fL (79-99); PLATELET COUNT (AUTO) 227 K/uL (130-400); RED BLOOD CELL COUNT(AUTO) 2.48 MIL/uL (4.00-5.50); RED CELL DISTRIBUTION WIDTH 13.3 % (11.0-15.5)
[2020-07-22 05:49] LABS: WHITE BLOOD COUNT (AUTO) 33.8 K/uL (4.8-10.8)
[2020-07-22 06:11] LABS: CREATININE 4.4 mg/dL (0.5-1.5); POTASSIUM 4.1 mmol/L (3.5-5.1)
[2020-07-22 06:16] LABS: LYMPHOCYTES % (MANUAL) 5 % (22-44); MAN.DIFF COMMENT-IMPRESSION MANUAL DIFFERENTIAL; MONOCYTES % (MANUAL) 4 % (2-9); PLATELET MORPHOLOGY COMMENT ADEQUATE; SEGMENTED NEUTROPHILS % 91 % (40-70)
[2020-07-22 06:57] LABS: ABG BASE EXCESS -9.4 mmol/L (-2.0-3.0); ABG OXYGEN SATURATION 95.4 % (95.0-99.0); ABG PCO2 34 mmHg (32-45)
[2020-07-22 07:30] VITALS: BP 121/56
[2020-07-22] MEDS: CALCITRIOL 0.25 MCG CAP PO SCH (09:00)
[2020-07-22] MEDS: PANTOPRAZOLE 40 MG TAB DR PO SCH (09:00)
[2020-07-22] MEDS: SODIUM CHLORIDE 1,000 MG TAB PO SCH ×2 (09:00→20:45)
[2020-07-22] MEDS: CETIRIZINE HCL 5 MG TABLET PO SCH (09:00)
[2020-07-22 11:00] VITALS: BP 126/52
[2020-07-22] MEDS: DRONEDARONE HYDROCHLORIDE 400 MG TABLET PO SCH (11:29)
[2020-07-22] MEDS: ATENOLOL 50 MG TABLET PO SCH (11:30)
[2020-07-22] MEDS: PREDNISONE 5 MG TABLET PO SCH (15:23)
[2020-07-22] MEDS: NIFEDIPINE ER 30 MG TAB PO SCH (15:23)
[2020-07-22] MEDS: 0.9%NACL 1000ML 1,000 ML IV SCH (15:24)
[2020-07-22] MEDS: SODIUM BICARB 50MEQ 50ML VIAL IV ONE ×2 (15:30→19:34)
[2020-07-22] MEDS ORDERED: VANCOMYCIN PROTOCOL PER PHARMACY IV SCH (15:30)
[2020-07-22 16:00] VITALS: BP 124/57
[2020-07-22] MEDS ORDERED: VANCOMYCIN 1G 1.25 GM in 0.9% NACL 250ML 250 ML IV ONE (16:00)
[2020-07-22] MEDS ORDERED: COMPOUND IV REFRIGERATED 1 EACH IVSOLN MISC PRN (16:00)
[2020-07-22] MEDS: ZOSYN 3.375GM+NS 50ML 50 ML IV SCH (16:54)
[2020-07-22] MEDS ORDERED: EPOETIN ALFA-EPBX (ESRD) 10,000 UNIT/ML VIAL SQ SCH (20:15)
[2020-07-22] MEDS ORDERED: SODIUM BICARB 50MEQ 50ML VIAL IV ONE (20:15)
[2020-07-22 20:41] VITALS: BP 129/57
[2020-07-22] MEDS: ATORVASTATIN 20 MG TABLET PO SCH (20:45)
[2020-07-22 23:56] VITALS: BP 112/58
[2020-07-23] MEDS: ZOSYN 3.375GM+NS 50ML 50 ML IV SCH ×2 (04:25→16:30)
[2020-07-23] MEDS: 0.9%NACL 1000ML 1,000 ML IV SCH (04:26)
[2020-07-23 04:54] VITALS: BP 116/50
[2020-07-23 05:32] LABS: MEAN CORPUSCULAR HEMOGLOBIN 29.8 pg (27.0-33.0); MEAN CORPUSCULAR HGB CONC 33.9 g/dL (32.0-36.0); RED BLOOD CELL COUNT(AUTO) 2.08 MIL/uL (4.00-5.50); RED CELL DISTRIBUTION WIDTH 13.4 % (11.0-15.5)
[2020-07-23 05:37] LABS: HEMATOCRIT 18.3 % (36-48); WHITE BLOOD COUNT (AUTO) 30.2 K/uL (4.8-10.8)
[2020-07-23 05:46] LABS: CREATININE 4.5 mg/dL (0.5-1.5); POTASSIUM 4.2 mmol/L (3.5-5.1)
[2020-07-23] MEDS: METOCLOPRAMIDE 5 MG TABLET PO SCH ×4 (06:05→19:39)
[2020-07-23 07:19] VITALS: BP 97/54
[2020-07-23] MEDS: ATENOLOL 50 MG TABLET PO SCH (09:00)
[2020-07-23] MEDS: PANTOPRAZOLE 40 MG TAB DR PO SCH (09:45)
[2020-07-23] MEDS: SODIUM CHLORIDE 1,000 MG TAB PO SCH ×2 (09:45→19:39)
[2020-07-23] MEDS: SODIUM BICARBONATE 650 MG TAB PO SCH ×2 (09:47→19:39)
[2020-07-23] MEDS: CETIRIZINE HCL 5 MG TABLET PO SCH (09:47)
[2020-07-23] MEDS: CALCITRIOL 0.25 MCG CAP PO SCH (09:47)
[2020-07-23] MEDS: PREDNISONE 5 MG TABLET PO SCH (09:47)
[2020-07-23] MEDS: HYDROMORPHONE 0.5 MG SYG (0.5MG/0.5ML) IVP PRN ×2 (09:49→23:46)
[2020-07-23 11:48] VITALS: BP 112/48
[2020-07-23] MEDS: ZYVOX 600 MG TAB PO SCH ×2 (13:13→23:02)
[2020-07-23] MEDS: NIFEDIPINE ER 30 MG TAB PO SCH (14:37)
[2020-07-23 16:06] VITALS: BP 115/51
[2020-07-23] MEDS ORDERED: FUROSEMIDE 20MG VIAL IV SCH (17:00)
[2020-07-23] MEDS ORDERED: EPOETIN ALFA-EPBX (ESRD) 10,000 UNIT/ML VIAL SQ SCH (18:00)
[2020-07-23] MEDS ORDERED: LACTULOSE 20 GM/30 ML UDCUP ONE (18:04)
[2020-07-23] MEDS: LACTULOSE 20 GM/30 ML UDCUP PO SCH (18:08)
[2020-07-23] MEDS: ATORVASTATIN 20 MG TABLET PO SCH (19:39)
[2020-07-23 20:00] VITALS: BP 117/68
[2020-07-24 00:23] VITALS: BP 112/55
[2020-07-24] MEDS: ZOSYN 3.375GM+NS 50ML 50 ML IV SCH ×2 (03:54→15:44)
[2020-07-24 04:00] VITALS: BP 118/67
[2020-07-24 05:49] LABS: HEMATOCRIT 24.9 % (36-48); MEAN CORPUSCULAR HGB CONC 33.3 g/dL (32.0-36.0); MEAN CORPUSCULAR VOLUME 87.1 fL (79-99); RED BLOOD CELL COUNT(AUTO) 2.86 MIL/uL (4.00-5.50); WHITE BLOOD COUNT (AUTO) 23.9 K/uL (4.8-10.8)
[2020-07-24 06:07] LABS: CREATININE 4.8 mg/dL (0.5-1.5); MAGNESIUM 2.1 mg/dL (1.80-2.40); POTASSIUM 4.1 mmol/L (3.5-5.1)
[2020-07-24] MEDS: METOCLOPRAMIDE 5 MG TABLET PO SCH ×4 (06:34→20:17)
[2020-07-24 07:52] VITALS: BP 152/82
[2020-07-24] MEDS: LACTULOSE 20 GM/30 ML UDCUP PO SCH ×2 (09:00→20:12)
[2020-07-24] MEDS: SODIUM BICARBONATE 650 MG TAB PO SCH ×2 (09:44→20:17)
[2020-07-24] MEDS: CALCITRIOL 0.25 MCG CAP PO SCH (09:44)
[2020-07-24] MEDS: HYDROMORPHONE 0.5 MG SYG (0.5MG/0.5ML) IVP PRN (09:44)
[2020-07-24] MEDS: CETIRIZINE HCL 5 MG TABLET PO SCH (09:44)
[2020-07-24] MEDS: SODIUM CHLORIDE 1,000 MG TAB PO SCH ×2 (09:44→20:17)
[2020-07-24] MEDS: PANTOPRAZOLE 40 MG TAB DR PO SCH (09:45)
[2020-07-24] MEDS: ZYVOX 600 MG TAB PO SCH ×2 (09:45→20:17)
[2020-07-24] MEDS: ATENOLOL 50 MG TABLET PO SCH (09:45)
[2020-07-24] MEDS: PREDNISONE 5 MG TABLET PO SCH (09:45)
[2020-07-24 11:58] VITALS: BP 116/70
[2020-07-24] MEDS: NIFEDIPINE ER 30 MG TAB PO SCH (15:44)
[2020-07-24 16:00] VITALS: BP 128/67
[2020-07-24 20:00] VITALS: BP 136/68
[2020-07-24] MEDS: ATORVASTATIN 20 MG TABLET PO SCH (20:17)
[2020-07-25] VITALS: BP 138/75
[2020-07-25] MEDS: ACETAMINOPHEN 325 MG TAB PO PRN ×2 (02:19→13:14)
[2020-07-25] MEDS: HYDROMORPHONE 0.5 MG SYG (0.5MG/0.5ML) IVP PRN (02:22)
[2020-07-25] MEDS: ZOSYN 3.375GM+NS 50ML 50 ML IV SCH ×2 (03:53→16:00)
[2020-07-25 04:00] VITALS: BP 137/77
[2020-07-25] MEDS: INSULIN HUMULIN R 100 UNIT/ML 3ML SQ SCH ×3 (05:33→16:30)
[2020-07-25] MEDS: METOCLOPRAMIDE 5 MG TABLET PO SCH ×3 (05:56→16:30)
[2020-07-25 08:13] LABS: ALBUMIN 2.2 g/dL (3.5-5.0); BILIRUBIN,TOTAL 0.4 mg/dL (0.2-1.0); CREATININE 4.7 mg/dL (0.5-1.5); POTASSIUM 4.1 mmol/L (3.5-5.1)
[2020-07-25] MEDS: LACTULOSE 20 GM/30 ML UDCUP PO SCH ×2 (09:00→21:00)
[2020-07-25] MEDS ORDERED: VANCOMYCIN 500MG+NS 100ML 100 ML IV SCH (09:00)
[2020-07-25] MEDS: PREDNISONE 5 MG TABLET PO SCH (09:00)
[2020-07-25] MEDS: ATENOLOL 50 MG TABLET PO SCH (09:23)
[2020-07-25] MEDS: CALCITRIOL 0.25 MCG CAP PO SCH (09:24)
[2020-07-25] MEDS: CETIRIZINE HCL 5 MG TABLET PO SCH (09:25)
[2020-07-25] MEDS: PANTOPRAZOLE 40 MG TAB DR PO SCH (09:25)
[2020-07-25] MEDS: SODIUM CHLORIDE 1,000 MG TAB PO SCH (09:25)
[2020-07-25] MEDS: SODIUM BICARBONATE 650 MG TAB PO SCH (09:25)
[2020-07-25 09:41] VITALS: BP 134/79
[2020-07-25] MEDS: ZYVOX 600 MG TAB PO SCH (11:52)
[2020-07-25 12:00] VITALS: BP 95/74
[2020-07-25] MEDS: NIFEDIPINE ER 30 MG TAB PO SCH (15:00)
[2020-07-25 16:00] VITALS: BP 142/76
[2020-12-30] MEDS ORDERED: LEVO500T90 PO (21:58)
[2021-01-01] MEDS ORDERED: LEVO500T90 PO (12:01)
== END 2020-07-25 21:25 | DRG 535 ==
LOC: EDH 22:52 → OBSVTOIN 07-20 00:15 → EDHIP 07-20 00:15 → 3BH 07-20 10:45
PROVIDERS: ADMIT Internal Medicine Critical Care Medicine; ATTEND Internal Medicine Critical Care Medicine
PROC: 30233N1 Transfusion of Nonautologous Red Blood Cells into Peripheral Vein, Percutaneous Approach (ICD-10-PCS; principal; 2020-07-23)
DX: S32.82XA Multiple fractures of pelvis without disruption of pelvic ring, initial encounter for closed fracture (principal); N18.6 End stage renal disease; E87.1 Hypo-osmolality and hyponatremia; I50.32 Chronic diastolic (congestive) heart failure; I13.2 Hypertensive heart and chronic kidney disease with heart failure and with stage 5 chronic kidney disease, or end stage renal disease; E87.2 Acidosis; N17.9 Acute kidney failure, unspecified; D72.829 Elevated white blood cell count, unspecified; D63.1 Anemia in chronic kidney disease; I48.91 Unspecified atrial fibrillation; W01.0XXA Fall on same level from slipping, tripping and stumbling without subsequent striking against object, initial encounter; R07.89 Other chest pain; E83.51 Hypocalcemia; E66.01 Morbid (severe) obesity due to excess calories; Y93.01 Activity, walking, marching and hiking; M19.90 Unspecified osteoarthritis, unspecified site; I25.10 Atherosclerotic heart disease of native coronary artery without angina pectoris; E11.22 Type 2 diabetes mellitus with diabetic chronic kidney disease; I05.0 Rheumatic mitral stenosis; M10.9 Gout, unspecified; R63.0 Anorexia; R53.81 Other malaise; Z90.710 Acquired absence of both cervix and uterus; Z90.49 Acquired absence of other specified parts of digestive tract; Z83.3 Family history of diabetes mellitus; Z79.01 Long term (current) use of anticoagulants; Z82.49 Family history of ischemic heart disease and other diseases of the circulatory system; Z68.28 Body mass index [BMI] 28.0-28.9, adult; Y92.009 Unspecified place in unspecified non-institutional (private) residence as the place of occurrence of the external cause; Y99.8 Other external cause status; Z79.899 Other long term (current) drug therapy; Z79.84 Long term (current) use of oral hypoglycemic drugs; Z20.822 Contact with and (suspected) exposure to COVID-19
CPT/HCPCS: 36415; 36430; 36600; 70450; 71045; 73502; 74176; 80048; 80053; 81003; 82270; 82803; 82948; 83735; 83880; 84132; 84484; 85014; 85018; 85025; 85027; 85378; 85610; 85730; 86850; 86900; 86901; 86923; 87040; 87426; 93005; 93306; 93970; 97039; G0378; J0295; J1170; J1940; J2405; J2543; J3370; J3490; J7050; J7512; P9016; U0003

== ENCOUNTER 2020-08-10 14:28 | Inpatient (IN) | payer OTHER, MEDICARE ==
[~2020-08-10] VITALS: Ht 154.9 cm; Wt 81.7 kg
[2020-08-10 15:14] LABS: BASOPHILS % (AUTO) 0.4 % (0.0-5.0); EOSINOPHILS % (AUTO) 3.7 % (0.0-8.0); HEMATOCRIT 21.6 % (36-48); LYMPHOCYTES % (AUTO) 6.6 % (21.0-51.0); MEAN CORPUSCULAR HEMOGLOBIN 29.3 pg (27.0-33.0); MEAN CORPUSCULAR HGB CONC 33.3 g/dL (32.0-36.0); MEAN CORPUSCULAR VOLUME 87.8 fL (79-99); MONOCYTES % (AUTO) 9.1 % (3.0-13.0); NEUTROPHILS % (AUTO) 79.5 % (40.0-77.0); PLATELET COUNT (AUTO) 185 K/uL (130-400); RED BLOOD CELL COUNT(AUTO) 2.46 MIL/uL (4.00-5.50); RED CELL DISTRIBUTION WIDTH 14.5 % (11.0-15.5)
[2020-08-10 15:41] LABS: ALBUMIN 2.3 g/dL (3.5-5.0); BILIRUBIN,TOTAL 0.3 mg/dL (0.2-1.0); CREATININE 6.5 mg/dL (0.5-1.5); POTASSIUM 3.3 mmol/L (3.5-5.1); TOTAL PROTEIN, SERUM 5.7 g/dL (6.0-8.3)
[2020-08-10 16:45] LABS: PROTHROMBIN TIME 10.9 SEC (9.6-11.6)
[2020-08-10 16:46] LABS: PARTIAL THROMBOPLASTIN TIME 27.5 SEC (26.3-35.5)
[2020-08-10] MEDS ORDERED: FUROSEMIDE 40MG VIAL ONE (18:32)
[2020-08-10] MEDS: FUROSEMIDE 40MG VIAL IVP SCH (19:00)
[2020-08-10 19:24] LABS: APPEARANCE,URINE TURBID (CLEAR); BILIRUBIN,URINE NEGATIVE (NEGATIVE); COLOR,URINE YELLOW (YELLOW); GLUCOSE, URINE (UA) NEGATIVE (NEGATIVE); KETONES,URINE NEGATIVE (NEGATIVE); LEUKOCYTE ESTERASE ,URINE LARGE (NEGATIVE); NITRATE,URINE NEGATIVE (NEGATIVE); OCCULT BLOOD,URINE MODERATE (NEGATIVE); PH,URINE 5.5 (5.0-8.0); PROTEIN,URINE TRACE mg/dL (NEGATIVE); UROBILINOGEN,URINE 0.2 mg/dL (0.2-1.0)
[2020-08-10 19:32] LABS: BACTERIA,URINE Many /HPF (None Seen); WBC,URINE TNTC /HPF (0-1)
[2020-08-10 19:33] LABS: SQUAMOUS EPITHELIAL CELL,UR Few /HPF (0-2)
[2020-08-10] MEDS ORDERED: CLONIDINE HCL 0.1 MG TABLET PO PRN (20:15)
[2020-08-10] MEDS: NITROGLYCERIN 1GM OINT 1 INCH/1GM TD SCH (20:15)
[2020-08-10] MEDS ORDERED: NIFEDIPINE ER 30 MG TAB PO SCH (20:15)
[2020-08-10] MEDS ORDERED: ONDANSETRON 4MG INJ IV PRN (20:15)
[2020-08-10 20:40] LABS: ABG BASE EXCESS -2.5 mmol/L (-2.0-3.0); ABG HCO3 22.9 mmol/L (21.0-28.0); ABG PCO2 41 mmHg (32-45)
[2020-08-10] MEDS ORDERED: APIXABAN 2.5 MG TABLET PO ONE (20:40)
[2020-08-10] MEDS ORDERED: CEFTRIAXONE 1G VIAL ONE (20:41)
[2020-08-10] MEDS ORDERED: NITROGLYCERIN 1GM OINT 1 INCH/1GM TD ONE (20:41)
[2020-08-10] MEDS ORDERED: NIFEDIPINE ER 30 MG TAB PO ONE (20:41)
[2020-08-10] MEDS ORDERED: ENOXAPARIN SODIUM 30 MG/0.3 ML SQ ONE (20:41)
[2020-08-10] MEDS ORDERED: ATORVASTATIN 40 MG TABLET ONE (20:41)
[2020-08-10] MEDS: APIXABAN 2.5 MG TABLET PO SCH (21:00)
[2020-08-10] MEDS: CEFTRIAXONE 1G VIAL IV SCH (21:00)
[2020-08-10] MEDS: ATENOLOL 50 MG TABLET PO SCH (21:00)
[2020-08-10] MEDS: INSULIN R PO SS1 SQ SCH (21:00)
[2020-08-10 23:20] VITALS: BP 131/56
[2020-08-11] MEDS ORDERED: ACETAMINOPHEN WITH CODEINE 1 TAB TAB ONE (00:13)
[2020-08-11] MEDS ORDERED: ACETAMINOPHEN WITH CODEINE 1 TAB TAB PO PRN (00:15)
[2020-08-11] MEDS ORDERED: ACET-2247 PO (00:55)
[2020-08-11] MEDS ORDERED: FERR324T4 PO (00:55)
[2020-08-11] MEDS ORDERED: LOPE2 PO (00:55)
[2020-08-11] MEDS ORDERED: MELA5CAP PO (00:55)
[2020-08-11] MEDS ORDERED: EPOE10004 IJ (00:55)
[2020-08-11] MEDS ORDERED: SODI100037 PO (00:55)
[2020-08-11] MEDS ORDERED: EPOE10008 IJ (00:55)
[2020-08-11] MEDS ORDERED: ALOG6.252 PO (00:55)
[2020-08-11] MEDS ORDERED: SODI650T PO (00:55)
[2020-08-11] MEDS ORDERED: FOLI1TAB61 PO (00:55)
[2020-08-11] MEDS ORDERED: BUME2TAB5 PO (00:55)
[2020-08-11] MEDS ORDERED: LACT10SO9 PO (00:55)
[2020-08-11] MEDS ORDERED: METO5TAB7 PO (00:55)
[2020-08-11] MEDS ORDERED: GLUC1VIA14 IJ (00:55)
[2020-08-11] MEDS ORDERED: ACET1TAB25 PO (00:55)
[2020-08-11] MEDS ORDERED: MUPI15CR12 TP (00:55)
[2020-08-11] MEDS ORDERED: ONDA4TAB4 PO (00:55)
[2020-08-11] MEDS: FUROSEMIDE 40MG VIAL IVP SCH ×2 (02:42→11:03)
[2020-08-11] MEDS: NITROGLYCERIN 1GM OINT 1 INCH/1GM TD SCH ×3 (03:50→21:03)
[2020-08-11 04:00] VITALS: BP 126/54
[2020-08-11 05:12] LABS: BASOPHILS % (AUTO) 0.5 % (0.0-5.0); EOSINOPHILS % (AUTO) 4.3 % (0.0-8.0); LYMPHOCYTES % (AUTO) 6.8 % (21.0-51.0); MEAN CORPUSCULAR HEMOGLOBIN 28.6 pg (27.0-33.0); MEAN CORPUSCULAR HGB CONC 32.5 g/dL (32.0-36.0); MEAN CORPUSCULAR VOLUME 87.9 fL (79-99); MONOCYTES % (AUTO) 9.4 % (3.0-13.0); NEUTROPHILS % (AUTO) 78.4 % (40.0-77.0); PLATELET COUNT (AUTO) 198 K/uL (130-400); RED BLOOD CELL COUNT(AUTO) 2.24 MIL/uL (4.00-5.50); RED CELL DISTRIBUTION WIDTH 14.4 % (11.0-15.5)
[2020-08-11 05:19] LABS: HEMATOCRIT 19.7 % (36-48)
[2020-08-11 05:58] LABS: CARBON DIOXIDE 25 mmol/L (21-32); CHLORIDE 96 mmol/L (101-111); CREATINE KINASE, TOTAL 33 U/L (21-232); CREATININE 6.4 mg/dL (0.5-1.5); GLOMERULAR FILTR. RATE CALC 7 mL/min (>60); GLUCOSE,RANDOM 110 mg/dL (70-105); MYOGLOBIN 148 ng/mL (10-92); POTASSIUM 3.3 mmol/L (3.5-5.1); SODIUM SERUM 132 mmol/L (136-145); TROPONIN I < 0.04 ng/mL (0.00-0.06)
[2020-08-11 06:02] LABS: UREA NITROGEN, BLOOD 114 mg/dL (7-18)
[2020-08-11] MEDS: INSULIN R PO SS1 SQ SCH ×4 (06:25→20:58)
[2020-08-11 06:43] LABS: B-TYPE NATRIURETIC PEPTIDE 1390 pg/mL (0-100)
[2020-08-11 07:55] VITALS: BP 91/55
[2020-08-11] MEDS: ATENOLOL 50 MG TABLET PO SCH ×2 (09:00→21:04)
[2020-08-11] MEDS ORDERED: ENOXAPARIN SODIUM 30 MG/0.3 ML SQ SCH (09:00)
[2020-08-11] MEDS: ATORVASTATIN 40 MG TABLET PO SCH (09:02)
[2020-08-11] MEDS: APIXABAN 2.5 MG TABLET PO SCH (09:02)
[2020-08-11] MEDS: CEFTRIAXONE 1G VIAL IV SCH ×2 (09:03→21:03)
[2020-08-11] MEDS ORDERED: COMPOUND IV MISC 1 EACH IVSOLN MISC PRN (10:30)
[2020-08-11 11:10] VITALS: BP 108/58
[2020-08-11 11:50] LABS: CREATINE KINASE, TOTAL 33 U/L (21-232); MYOGLOBIN 133 ng/mL (10-92); TROPONIN I < 0.04 ng/mL (0.00-0.06)
[2020-08-11] MEDS: ACETAMINOPHEN WITH CODEINE 1 TAB TAB PO PRN ×2 (12:35→23:47)
[2020-08-11] MEDS ORDERED: FUROSEMIDE 40MG VIAL IV SCH (14:15)
[2020-08-11 15:49] VITALS: BP 101/57
[2020-08-11 19:40] VITALS: BP 118/58
[2020-08-11 19:59] LABS: CREATINE KINASE, TOTAL 30 U/L (21-232); MYOGLOBIN 130 ng/mL (10-92); TROPONIN I < 0.04 ng/mL (0.00-0.06)
[2020-08-12 00:08] VITALS: BP 169/91
[2020-08-12 03:44] VITALS: BP 112/83
[2020-08-12] MEDS: NITROGLYCERIN 1GM OINT 1 INCH/1GM TD SCH ×3 (04:22→20:05)
[2020-08-12 05:17] LABS: MEAN CORPUSCULAR HEMOGLOBIN 29.2 pg (27.0-33.0); MEAN CORPUSCULAR HGB CONC 32.8 g/dL (32.0-36.0); MEAN CORPUSCULAR VOLUME 89.2 fL (79-99); RED BLOOD CELL COUNT(AUTO) 2.12 MIL/uL (4.00-5.50); RED CELL DISTRIBUTION WIDTH 14.6 % (11.0-15.5); WHITE BLOOD COUNT (AUTO) 11.6 K/uL (4.8-10.8)
[2020-08-12 05:36] LABS: CREATININE 6.1 mg/dL (0.5-1.5); POTASSIUM 3.9 mmol/L (3.5-5.1)
[2020-08-12 05:48] LABS: HEMATOCRIT 18.9 % (36-48)
[2020-08-12] MEDS: INSULIN R PO SS1 SQ SCH ×4 (06:30→20:19)
[2020-08-12 08:00] VITALS: BP 128/54
[2020-08-12] MEDS: IRON SUCROSE COMPLEX 100 MG in 0.9%NACL 50ML 50 ML IV SCH (09:00)
[2020-08-12] MEDS: CEFTRIAXONE 1G VIAL IV SCH ×2 (09:09→20:04)
[2020-08-12] MEDS: ATORVASTATIN 40 MG TABLET PO SCH (09:10)
[2020-08-12] MEDS ORDERED: FUROSEMIDE 40MG VIAL IV SCH (10:00)
[2020-08-12 12:04] VITALS: BP 142/58
[2020-08-12] MEDS: ATENOLOL 50 MG TABLET PO SCH ×2 (12:40→20:05)
[2020-08-12 16:00] VITALS: BP 137/50
[2020-08-12 18:45] LABS: HEMATOCRIT 22.1 % (36-48)
[2020-08-12 19:37] VITALS: BP 149/53
[2020-08-12] MEDS: BALSAM PERU/CASTOR OIL 60 GM TUBE TP SCH (20:32)
[2020-08-13] VITALS (10 sets, daily range): BP systolic 151–190; BP diastolic 50–79
[2020-08-13] MEDS: ACETAMINOPHEN WITH CODEINE 1 TAB TAB PO PRN ×3 (04:35→17:20)
[2020-08-13] MEDS: NITROGLYCERIN 1GM OINT 1 INCH/1GM TD SCH ×3 (04:35→17:21)
[2020-08-13 05:17] LABS: HEMATOCRIT 22.8 % (36-48); MEAN CORPUSCULAR HEMOGLOBIN 28.9 pg (27.0-33.0); MEAN CORPUSCULAR HGB CONC 33.3 g/dL (32.0-36.0); MEAN CORPUSCULAR VOLUME 86.7 fL (79-99); RED BLOOD CELL COUNT(AUTO) 2.63 MIL/uL (4.00-5.50); RED CELL DISTRIBUTION WIDTH 15.3 % (11.0-15.5); WHITE BLOOD COUNT (AUTO) 10.3 K/uL (4.8-10.8)
[2020-08-13 05:28] LABS: INR 1.04 (0.85-1.15); PROTHROMBIN TIME 11.3 SEC (9.6-11.6)
[2020-08-13 05:29] LABS: PARTIAL THROMBOPLASTIN TIME 30.7 SEC (26.3-35.5)
[2020-08-13 05:46] LABS: POTASSIUM 3.6 mmol/L (3.5-5.1)
[2020-08-13] MEDS: INSULIN R PO SS1 SQ SCH ×4 (06:04→20:41)
[2020-08-13] MEDS: ATORVASTATIN 40 MG TABLET PO SCH (09:00)
[2020-08-13] MEDS: IRON SUCROSE COMPLEX 100 MG in 0.9%NACL 50ML 50 ML IV SCH (09:47)
[2020-08-13] MEDS: ATENOLOL 50 MG TABLET PO SCH ×2 (09:48→20:23)
[2020-08-13] MEDS: CEFTRIAXONE 1G VIAL IV SCH (09:49)
[2020-08-13] MEDS: BALSAM PERU/CASTOR OIL 60 GM TUBE TP SCH ×3 (09:50→20:25)
[2020-08-13] MEDS ORDERED: LEVOFLOXACIN 500 MG/D5W 100 ML 100 ML IV SCH ×2 (10:15→10:30)
[2020-08-13] MEDS ORDERED: RENAL DOSE IV PRN (10:15)
[2020-08-13] MEDS ORDERED: LIDOCAINE HCL 1% MDV 50ML VIAL ONE (10:19)
[2020-08-13] MEDS ORDERED: HEPARIN 1,000 UNIT VIAL ONE (10:19)
[2020-08-13] MEDS ORDERED: 0.9%NACL 1000ML 1,000 ML IV PRN (13:30)
[2020-08-13] MEDS ORDERED: NITROGLYCERIN 0.4 MG SL TAB SL PRN (13:30)
[2020-08-13] MEDS ORDERED: HEPARIN 5,000 UNIT VIAL IJ PRN ×2 (13:30)
[2020-08-13] MEDS ORDERED: LIDOCAINE HCL-MPF 1% 2ML VIAL IJ PRN (13:30)
[2020-08-13] MEDS ORDERED: 0.9%NACL 1000ML IV PRN (13:30)
[2020-08-13] MEDS: ENOXAPARIN SODIUM 100 MG/1 ML SQ SCH (21:00)
[2020-08-14] VITALS: BP 138/83
[2020-08-14] MEDS: NITROGLYCERIN 1GM OINT 1 INCH/1GM TD SCH ×3 (02:30→18:21)
[2020-08-14] MEDS: ACETAMINOPHEN 325 MG TAB PO PRN (02:31)
[2020-08-14 04:00] VITALS: BP 150/56
[2020-08-14] MEDS: INSULIN R PO SS1 SQ SCH ×4 (05:28→19:57)
[2020-08-14 06:05] LABS: HEMATOCRIT 21.7 % (36-48); MEAN CORPUSCULAR HEMOGLOBIN 29.2 pg (27.0-33.0); MEAN CORPUSCULAR HGB CONC 32.7 g/dL (32.0-36.0); MEAN CORPUSCULAR VOLUME 89.3 fL (79-99); RED BLOOD CELL COUNT(AUTO) 2.43 MIL/uL (4.00-5.50); RED CELL DISTRIBUTION WIDTH 15.5 % (11.0-15.5); WHITE BLOOD COUNT (AUTO) 12.2 K/uL (4.8-10.8)
[2020-08-14 06:19] LABS: INR 1.09 (0.85-1.15); PROTHROMBIN TIME 11.8 SEC (9.6-11.6)
[2020-08-14 06:21] LABS: CREATININE 4.3 mg/dL (0.5-1.5); POTASSIUM 3.8 mmol/L (3.5-5.1)
[2020-08-14 08:00] VITALS: BP 154/66
[2020-08-14] MEDS: ATENOLOL 50 MG TABLET PO SCH ×3 (09:00→20:15)
[2020-08-14] MEDS: BALSAM PERU/CASTOR OIL 60 GM TUBE TP SCH ×3 (09:00→20:17)
[2020-08-14 09:13] LABS: HEPATITIS B CORE IGM Negative (Negative); HEPATITIS Bs ANTIGEN SCREEN P Negative (Negative)
[2020-08-14 10:58] LABS: HEMATOCRIT 22.2 % (36-48)
[2020-08-14 11:00] VITALS: BP 172/70
[2020-08-14] MEDS: IRON SUCROSE COMPLEX 100 MG in 0.9%NACL 50ML 50 ML IV SCH (11:07)
[2020-08-14 11:15] LABS: ALBUMIN 2.1 g/dL (3.5-5.0)
[2020-08-14 11:16] LABS: % IRON SATURATION 50.3 % (22-44)
[2020-08-14] MEDS: ATORVASTATIN 40 MG TABLET PO SCH (13:14)
[2020-08-14] MEDS: ENOXAPARIN SODIUM 100 MG/1 ML SQ SCH (13:15)
[2020-08-14 16:25] VITALS: BP 143/92
[2020-08-14] MEDS ORDERED: METOPROLOL TARTRATE 1 MG/ML 5ML VIAL IV ONE (16:26)
[2020-08-14] MEDS ORDERED: METOPROLOL TARTRATE 1 MG/ML 5ML VIAL IV SCH (17:30)
[2020-08-14 19:00] VITALS: BP 151/73
[2020-08-14] MEDS: LABETALOL 20MG SYG IV PRN ×2 (19:56→22:25)
[2020-08-14] MEDS: ACETAMINOPHEN WITH CODEINE 1 TAB TAB PO PRN (23:19)
[2020-08-15] VITALS (7 sets, daily range): BP systolic 104–169; BP diastolic 51–91
[2020-08-15] MEDS: NITROGLYCERIN 1GM OINT 1 INCH/1GM TD SCH (02:23)
[2020-08-15 05:45] LABS: MEAN CORPUSCULAR HEMOGLOBIN 28.8 pg (27.0-33.0); MEAN CORPUSCULAR HGB CONC 31.8 g/dL (32.0-36.0); MEAN CORPUSCULAR VOLUME 90.7 fL (79-99); RED BLOOD CELL COUNT(AUTO) 2.15 MIL/uL (4.00-5.50); RED CELL DISTRIBUTION WIDTH 15.3 % (11.0-15.5); WHITE BLOOD COUNT (AUTO) 10.2 K/uL (4.8-10.8)
[2020-08-15 05:50] LABS: HEMATOCRIT 19.5 % (36-48)
[2020-08-15 05:52] LABS: CREATININE 3.5 mg/dL (0.5-1.5); POTASSIUM 3.7 mmol/L (3.5-5.1)
[2020-08-15 06:02] LABS: INR 1.12 (0.85-1.15); PROTHROMBIN TIME 12.1 SEC (9.6-11.6)
[2020-08-15 06:03] LABS: PARTIAL THROMBOPLASTIN TIME 38.6 SEC (26.3-35.5)
[2020-08-15] MEDS: INSULIN R PO SS1 SQ SCH ×4 (06:16→20:31)
[2020-08-15] MEDS: ATENOLOL 50 MG TABLET PO SCH ×3 (09:00→20:31)
[2020-08-15] MEDS ORDERED: ENOXAPARIN SODIUM 100 MG/1 ML SQ SCH (09:00)
[2020-08-15] MEDS: ATORVASTATIN 40 MG TABLET PO SCH (09:00)
[2020-08-15] MEDS: IRON SUCROSE COMPLEX 100 MG in 0.9%NACL 50ML 50 ML IV SCH (09:00)
[2020-08-15] MEDS: BALSAM PERU/CASTOR OIL 60 GM TUBE TP SCH ×3 (10:22→20:31)
[2020-08-15] MEDS: LEVOFLOXACIN 250 MG/D5W 50ML 50 ML IVPB SCH (13:04)
[2020-08-15 13:14] LABS: HEPATITIS Bs ANTIGEN SCREEN P Negative (Negative)
[2020-08-15] MEDS: DRONEDARONE HYDROCHLORIDE 400 MG TABLET PO SCH ×2 (16:43→20:30)
[2020-08-15] MEDS: ACETAMINOPHEN WITH CODEINE 1 TAB TAB PO PRN (16:49)
[2020-08-16 04:00] VITALS: BP 134/72
[2020-08-16 05:36] LABS: HEMATOCRIT 22.1 % (36-48); MEAN CORPUSCULAR HEMOGLOBIN 29.6 pg (27.0-33.0); MEAN CORPUSCULAR HGB CONC 33.5 g/dL (32.0-36.0); MEAN CORPUSCULAR VOLUME 88.4 fL (79-99); RED BLOOD CELL COUNT(AUTO) 2.5 MIL/uL (4.00-5.50); RED CELL DISTRIBUTION WIDTH 15.9 % (11.0-15.5); WHITE BLOOD COUNT (AUTO) 11.7 K/uL (4.8-10.8)
[2020-08-16 06:03] LABS: CREATININE 2.6 mg/dL (0.5-1.5); POTASSIUM 3.5 mmol/L (3.5-5.1)
[2020-08-16] MEDS: INSULIN R PO SS1 SQ SCH ×4 (06:34→21:00)
[2020-08-16 08:00] VITALS: BP 157/85
[2020-08-16] MEDS: PANTOPRAZOLE 40 MG TAB DR PO SCH (09:20)
[2020-08-16] MEDS: IRON SUCROSE COMPLEX 100 MG in 0.9%NACL 50ML 50 ML IV SCH (09:20)
[2020-08-16] MEDS: BALSAM PERU/CASTOR OIL 60 GM TUBE TP SCH ×3 (09:20→20:17)
[2020-08-16] MEDS: ATORVASTATIN 40 MG TABLET PO SCH (09:20)
[2020-08-16] MEDS: ATENOLOL 50 MG TABLET PO SCH ×2 (09:22→20:17)
[2020-08-16] MEDS ORDERED: EPOETIN ALFA-EPBX (ESRD) 10,000 UNIT/ML VIAL SQ SCH (11:30)
[2020-08-16] MEDS ORDERED: Vitamin B Complex/Vit C/Folic Acid PO SCH (11:30)
[2020-08-16 11:54] VITALS: BP 174/94
[2020-08-16] MEDS: HYDRALAZINE 20MG/ML VIAL IV PRN ×2 (12:40→20:17)
[2020-08-16 16:00] VITALS: BP 141/73
[2020-08-16 20:00] VITALS: BP 171/88
[2020-08-16 23:45] VITALS: BP 152/65
[2020-08-17] VITALS (16 sets, daily range): BP systolic 105–179; BP diastolic 48–100
[2020-08-17] MEDS: ACETAMINOPHEN WITH CODEINE 1 TAB TAB PO PRN (01:27)
[2020-08-17 06:01] LABS: HEMATOCRIT 25.6 % (36-48); MEAN CORPUSCULAR HEMOGLOBIN 29.8 pg (27.0-33.0); MEAN CORPUSCULAR HGB CONC 32.8 g/dL (32.0-36.0); MEAN CORPUSCULAR VOLUME 90.8 fL (79-99); RED BLOOD CELL COUNT(AUTO) 2.82 MIL/uL (4.00-5.50); RED CELL DISTRIBUTION WIDTH 15.9 % (11.0-15.5)
[2020-08-17] MEDS: INSULIN R PO SS1 SQ SCH ×3 (06:02→21:00)
[2020-08-17 06:23] LABS: CREATININE 3.1 mg/dL (0.5-1.5); POTASSIUM 3.6 mmol/L (3.5-5.1)
[2020-08-17 07:00] LABS: INR 1.09 (0.85-1.15); PARTIAL THROMBOPLASTIN TIME 31.2 SEC (26.3-35.5); PROTHROMBIN TIME 11.2 SEC (9.6-11.6)
[2020-08-17] MEDS: ATORVASTATIN 40 MG TABLET PO SCH (09:00)
[2020-08-17] MEDS: PANTOPRAZOLE 40 MG TAB DR PO SCH (09:00)
[2020-08-17] MEDS: BALSAM PERU/CASTOR OIL 60 GM TUBE TP SCH ×3 (09:00→21:26)
[2020-08-17] MEDS: Vitamin B Complex/Vit C/Folic Acid PO SCH (09:00)
[2020-08-17] MEDS: ATENOLOL 50 MG TABLET PO SCH ×2 (10:51→21:25)
[2020-08-17] MEDS: LEVOFLOXACIN 250 MG/D5W 50ML 50 ML IVPB SCH (12:43)
[2020-08-17] MEDS: IRON SUCROSE COMPLEX 100 MG in 0.9%NACL 50ML 50 ML IV SCH (13:49)
[2020-08-17] MEDS: METOPROLOL TARTRATE 1 MG/ML 5ML VIAL IV PRN ×2 (13:50→14:00)
[2020-08-17] MEDS: DILTIAZEM 60MG TAB PO SCH ×2 (14:00→21:26)
[2020-08-17] MEDS ORDERED: PROPOFOL 10 MG/ML 20ML VIAL IV ONE (14:18)
[2020-08-17] MEDS ORDERED: LIDOCAINE HCL 1% 20 ML VIAL ONE (14:19)
[2020-08-17] MEDS: HYDRALAZINE 20MG/ML VIAL IV PRN (16:39)
[2020-08-17] MEDS ORDERED: LACTULOSE 20 GM/30 ML UDCUP PO SCH (18:45)
[2020-08-17] MEDS: ACETAMINOPHEN 325 MG TAB PO PRN (19:07)
[2020-08-17] MEDS ORDERED: PEG 3350/NA SULF,BICARB,CL/KCL 4000 ML SOLN PO ONE (20:00)
[2020-08-18] VITALS (12 sets, daily range): BP systolic 90–195; BP diastolic 50–90
[2020-08-18] MEDS: DILTIAZEM 60MG TAB PO SCH ×3 (06:04→20:22)
[2020-08-18] MEDS: INSULIN R PO SS1 SQ SCH ×4 (06:04→20:24)
[2020-08-18 06:15] LABS: HEMATOCRIT 25.8 % (36-48); MEAN CORPUSCULAR HEMOGLOBIN 29.2 pg (27.0-33.0); MEAN CORPUSCULAR HGB CONC 31.8 g/dL (32.0-36.0); MEAN CORPUSCULAR VOLUME 91.8 fL (79-99); RED BLOOD CELL COUNT(AUTO) 2.81 MIL/uL (4.00-5.50); RED CELL DISTRIBUTION WIDTH 15.6 % (11.0-15.5); WHITE BLOOD COUNT (AUTO) 16.3 K/uL (4.8-10.8)
[2020-08-18 06:36] LABS: CREATININE 2.8 mg/dL (0.5-1.5); PHOSPHORUS 3.5 mg/dL (2.5-4.9); POTASSIUM 3.5 mmol/L (3.5-5.1); THYROID STIMULATING HORMONE 2.78 uIU/mL (0.36-3.74)
[2020-08-18] MEDS: ATENOLOL 50 MG TABLET PO SCH ×2 (08:39→20:23)
[2020-08-18] MEDS: Vitamin B Complex/Vit C/Folic Acid PO SCH (08:40)
[2020-08-18] MEDS: PANTOPRAZOLE 40 MG TAB DR PO SCH (08:40)
[2020-08-18] MEDS: ATORVASTATIN 40 MG TABLET PO SCH (08:40)
[2020-08-18] MEDS: IRON SUCROSE COMPLEX 100 MG in 0.9%NACL 50ML 50 ML IV SCH (09:57)
[2020-08-18] MEDS ORDERED: SIMETHICONE 40 MG/0.6 ML ML ONE (11:19)
[2020-08-18] MEDS ORDERED: PHENYLEPHRINE HCL 10 MG/ML 1ML VIAL IV ONE (11:49)
[2020-08-18] MEDS: METOPROLOL TARTRATE 1 MG/ML 5ML VIAL IV PRN ×5 (13:35→21:50)
[2020-08-18] MEDS: BALSAM PERU/CASTOR OIL 60 GM TUBE TP SCH ×3 (14:00→20:30)
[2020-08-18] MEDS ORDERED: FUROSEMIDE 40MG VIAL IV SCH (15:55)
[2020-08-18] MEDS: CLONIDINE HCL 0.1 MG TABLET PO PRN (17:00)
[2020-08-19 03:59] VITALS: BP 144/98
[2020-08-19] MEDS: DILTIAZEM 60MG TAB PO SCH ×3 (04:09→20:25)
[2020-08-19] MEDS: ATENOLOL 50 MG TABLET PO SCH ×3 (04:09→20:25)
[2020-08-19 04:30] LABS: ABG BASE EXCESS 3.5 mmol/L (-2.0-3.0); ABG HCO3 29.2 mmol/L (21.0-28.0); ABG OXYGEN SATURATION 95.7 % (95.0-99.0); ABG PCO2 48 mmHg (32-45)
[2020-08-19 05:33] LABS: HEMATOCRIT 24.2 % (36-48); MEAN CORPUSCULAR HEMOGLOBIN 28.8 pg (27.0-33.0); MEAN CORPUSCULAR VOLUME 93.1 fL (79-99); PLATELET COUNT (AUTO) 409 K/uL (130-400); RED CELL DISTRIBUTION WIDTH 15.6 % (11.0-15.5)
[2020-08-19 05:46] LABS: INR 1.14 (0.85-1.15); PARTIAL THROMBOPLASTIN TIME 29.9 SEC (26.3-35.5); PROTHROMBIN TIME 11.7 SEC (9.6-11.6)
[2020-08-19 05:50] LABS: CREATININE 3.4 mg/dL (0.5-1.5); POTASSIUM 3.6 mmol/L (3.5-5.1)
[2020-08-19] MEDS: INSULIN R PO SS1 SQ SCH ×4 (05:55→20:33)
[2020-08-19 06:03] LABS: B-TYPE NATRIURETIC PEPTIDE 3660 pg/mL (0-100)
[2020-08-19 07:52] VITALS: BP 190/92
[2020-08-19] MEDS: ATORVASTATIN 40 MG TABLET PO SCH (08:58)
[2020-08-19] MEDS: IRON SUCROSE COMPLEX 100 MG in 0.9%NACL 50ML 50 ML IV SCH (08:58)
[2020-08-19] MEDS: Vitamin B Complex/Vit C/Folic Acid PO SCH (08:58)
[2020-08-19] MEDS: PANTOPRAZOLE 40 MG TAB DR PO SCH (08:59)
[2020-08-19] MEDS: BALSAM PERU/CASTOR OIL 60 GM TUBE TP SCH ×3 (08:59→20:34)
[2020-08-19] MEDS: LEVOFLOXACIN 250 MG/D5W 50ML 50 ML IVPB SCH (10:00)
[2020-08-19 11:26] VITALS: BP 152/93
[2020-08-19] MEDS ORDERED: CEFAZOLIN SODIUM 1 GM VIAL IVP PRN (11:30)
[2020-08-19 16:49] VITALS: BP 138/66
[2020-08-19 20:01] VITALS: BP 143/69
[2020-08-19 23:35] VITALS: BP 135/67
[2020-08-20 03:48] VITALS: BP_SYST 110; BP_SYST 151; BP_DIAS 62; BP_DIAS 69
[2020-08-20 05:14] LABS: ABG BASE EXCESS 6.7 mmol/L (-2.0-3.0); ABG HCO3 33.4 mmol/L (21.0-28.0); ABG OXYGEN SATURATION 95.4 % (95.0-99.0); ABG PCO2 56 mmHg (32-45)
[2020-08-20] MEDS: DILTIAZEM 60MG TAB PO SCH ×3 (05:32→22:50)
[2020-08-20 05:40] LABS: HEMATOCRIT 23.3 % (36-48); MEAN CORPUSCULAR HEMOGLOBIN 29.1 pg (27.0-33.0); MEAN CORPUSCULAR HGB CONC 30.9 g/dL (32.0-36.0); MEAN CORPUSCULAR VOLUME 94.3 fL (79-99); NUCLEATED RED BLOOD CELLS 0.1 % (0.0-0.19); RED BLOOD CELL COUNT(AUTO) 2.47 MIL/uL (4.00-5.50); RED CELL DISTRIBUTION WIDTH 15.6 % (11.0-15.5); WHITE BLOOD COUNT (AUTO) 14.8 K/uL (4.8-10.8)
[2020-08-20 05:50] LABS: ALBUMIN 2.5 g/dL (3.5-5.0); BILIRUBIN,TOTAL 0.3 mg/dL (0.2-1.0); CREATININE 2.8 mg/dL (0.5-1.5); POTASSIUM 3.7 mmol/L (3.5-5.1); TOTAL PROTEIN, SERUM 6.1 g/dL (6.0-8.3)
[2020-08-20] MEDS: INSULIN R PO SS1 SQ SCH ×4 (06:03→20:20)
[2020-08-20 07:30] VITALS: BP 142/79
[2020-08-20] MEDS: Vitamin B Complex/Vit C/Folic Acid PO SCH (08:36)
[2020-08-20] MEDS: ATORVASTATIN 40 MG TABLET PO SCH (08:36)
[2020-08-20] MEDS: PANTOPRAZOLE 40 MG TAB DR PO SCH (08:37)
[2020-08-20] MEDS: ATENOLOL 50 MG TABLET PO SCH ×2 (08:38→20:20)
[2020-08-20] MEDS: IRON SUCROSE COMPLEX 100 MG in 0.9%NACL 50ML 50 ML IV SCH (08:38)
[2020-08-20 11:00] VITALS: BP 163/88
[2020-08-20] MEDS: BALSAM PERU/CASTOR OIL 60 GM TUBE TP SCH ×3 (11:50→20:21)
[2020-08-20 16:00] VITALS: BP 155/89
[2020-08-20 19:00] VITALS: BP 155/88
[2020-08-21] VITALS: BP 132/70
[2020-08-21 04:00] VITALS: BP 148/84
[2020-08-21] MEDS: DILTIAZEM 60MG TAB PO SCH (05:29)
[2020-08-21 05:51] LABS: HEMATOCRIT 23.4 % (36-48); MEAN CORPUSCULAR HGB CONC 30.3 g/dL (32.0-36.0); MEAN CORPUSCULAR VOLUME 95.5 fL (79-99); NUCLEATED RED BLOOD CELLS 0.1 % (0.0-0.19); RED BLOOD CELL COUNT(AUTO) 2.45 MIL/uL (4.00-5.50); RED CELL DISTRIBUTION WIDTH 15.7 % (11.0-15.5); WHITE BLOOD COUNT (AUTO) 15.8 K/uL (4.8-10.8)
[2020-08-21] MEDS: INSULIN R PO SS1 SQ SCH ×4 (06:04→20:34)
[2020-08-21 06:05] LABS: CREATININE 3.4 mg/dL (0.5-1.5); POTASSIUM 3.7 mmol/L (3.5-5.1)
[2020-08-21] MEDS: Vitamin B Complex/Vit C/Folic Acid PO SCH (07:30)
[2020-08-21] MEDS: ATORVASTATIN 40 MG TABLET PO SCH (07:30)
[2020-08-21] MEDS: PANTOPRAZOLE 40 MG TAB DR PO SCH (07:30)
[2020-08-21] MEDS: DILTIAZEM 120MG SR CAP PO SCH (08:00)
[2020-08-21 08:10] VITALS: BP 161/93
[2020-08-21] MEDS: ATENOLOL 50 MG TABLET PO SCH ×2 (09:00→20:24)
[2020-08-21 12:00] VITALS: BP 164/54
[2020-08-21] MEDS: LEVOFLOXACIN 250 MG/D5W 50ML 50 ML IVPB SCH (15:57)
[2020-08-21] MEDS: IRON SUCROSE COMPLEX 100 MG in 0.9%NACL 50ML 50 ML IV SCH (15:58)
[2020-08-21 16:40] VITALS: BP 110/89
[2020-08-21] MEDS: BALSAM PERU/CASTOR OIL 60 GM TUBE TP SCH ×3 (18:18→20:35)
[2020-08-21 19:24] VITALS: BP 149/75
[2020-08-22] VITALS (7 sets, daily range): BP systolic 116–216; BP diastolic 71–97
[2020-08-22] MEDS: METOPROLOL TARTRATE 1 MG/ML 5ML VIAL IV PRN (05:06)
[2020-08-22 05:20] LABS: BASOPHILS % (AUTO) 0.6 % (0.0-5.0); EOSINOPHILS % (AUTO) 1.7 % (0.0-8.0); HEMATOCRIT 29.5 % (36-48); LYMPHOCYTES % (AUTO) 7.2 % (21.0-51.0); MEAN CORPUSCULAR HEMOGLOBIN 28.8 pg (27.0-33.0); MEAN CORPUSCULAR HGB CONC 31.2 g/dL (32.0-36.0); MEAN CORPUSCULAR VOLUME 92.5 fL (79-99); NEUTROPHILS % (AUTO) 79.1 % (40.0-77.0); PLATELET COUNT (AUTO) 279 K/uL (130-400); RED BLOOD CELL COUNT(AUTO) 3.19 MIL/uL (4.00-5.50); RED CELL DISTRIBUTION WIDTH 16.3 % (11.0-15.5); WHITE BLOOD COUNT (AUTO) 13.7 K/uL (4.8-10.8)
[2020-08-22 05:35] LABS: CREATININE 3.1 mg/dL (0.5-1.5); INR 1.1 (0.85-1.15); POTASSIUM 3.7 mmol/L (3.5-5.1); PROTHROMBIN TIME 11.9 SEC (9.6-11.6)
[2020-08-22 05:36] LABS: PARTIAL THROMBOPLASTIN TIME 30.8 SEC (26.3-35.5)
[2020-08-22] MEDS: INSULIN R PO SS1 SQ SCH ×4 (06:08→21:00)
[2020-08-22] MEDS: DILTIAZEM 120MG SR CAP PO SCH ×2 (07:06→11:09)
[2020-08-22] MEDS: ATENOLOL 50 MG TABLET PO SCH ×2 (07:08→21:19)
[2020-08-22] MEDS ORDERED: DEXAMETHASONE SOD PHOSPHATE 10MG/ML 1ML VIAL ONE (07:09)
[2020-08-22] MEDS ORDERED: LIDOCAINE PF 100MG/5ML (2%) SYRINGE 5ML ONE (07:09)
[2020-08-22] MEDS ORDERED: ONDANSETRON 4MG INJ ONE (07:09)
[2020-08-22] MEDS ORDERED: SUCCINYLCHOLINE CHLORIDE 20 MG/ML 10 ML VIAL ONE (07:09)
[2020-08-22] MEDS ORDERED: MIDAZOLAM HCL 1 MG/ML 2ML VIAL ONE (07:10)
[2020-08-22] MEDS ORDERED: NEOSTIGMINE 5MG/5ML SYR IV ONE (07:10)
[2020-08-22] MEDS ORDERED: FENTANYL CITRATE PF 50 MCG/1 ML 2ML VIAL ONE (07:10)
[2020-08-22] MEDS ORDERED: GLYCOPYRROLATE 1 MG/5 ML SYRINGE ONE (07:10)
[2020-08-22] MEDS ORDERED: PROPOFOL 10 MG/ML 20ML VIAL IV ONE (07:10)
[2020-08-22] MEDS ORDERED: ROCURONIUM 10MG/1ML SYR 10 MG/ML ML ONE ×2 (07:10→07:51)
[2020-08-22] MEDS ORDERED: EPHEDRINE SULFATE 50 MG/ML AMPULE ONE (07:15)
[2020-08-22] MEDS ORDERED: CEFAZOLIN SODIUM 1 GM VIAL IVP PRN (07:30)
[2020-08-22] MEDS ORDERED: KETAMINE 50MG/ML SYRINGE 50 MG/ML DISP.SYRIN IV ONE (07:32)
[2020-08-22] MEDS: Vitamin B Complex/Vit C/Folic Acid PO SCH (09:53)
[2020-08-22] MEDS: ATORVASTATIN 40 MG TABLET PO SCH (09:54)
[2020-08-22] MEDS: BALSAM PERU/CASTOR OIL 60 GM TUBE TP SCH ×3 (09:55→21:00)
[2020-08-22] MEDS: IRON SUCROSE COMPLEX 100 MG in 0.9%NACL 50ML 50 ML IV SCH (09:55)
[2020-08-22] MEDS: PANTOPRAZOLE 40 MG TAB DR PO SCH (09:57)
[2020-08-23] VITALS (8 sets, daily range): BP systolic 132–188; BP diastolic 78–123
[2020-08-23] MEDS: METOPROLOL TARTRATE 1 MG/ML 5ML VIAL IV PRN ×4 (00:29→22:38)
[2020-08-23 05:18] LABS: HEMATOCRIT 29.1 % (36-48); MEAN CORPUSCULAR HEMOGLOBIN 29.4 pg (27.0-33.0); MEAN CORPUSCULAR HGB CONC 31.6 g/dL (32.0-36.0); RED BLOOD CELL COUNT(AUTO) 3.13 MIL/uL (4.00-5.50); WHITE BLOOD COUNT (AUTO) 17.5 K/uL (4.8-10.8)
[2020-08-23 05:32] LABS: ALBUMIN 2.6 g/dL (3.5-5.0); BILIRUBIN,TOTAL 0.5 mg/dL (0.2-1.0); CREATININE 3.6 mg/dL (0.5-1.5); POTASSIUM 3.7 mmol/L (3.5-5.1); TOTAL PROTEIN, SERUM 6.3 g/dL (6.0-8.3)
[2020-08-23] MEDS: INSULIN R PO SS1 SQ SCH ×4 (05:57→20:40)
[2020-08-23] MEDS: BALSAM PERU/CASTOR OIL 60 GM TUBE TP SCH ×3 (09:00→19:52)
[2020-08-23] MEDS ORDERED: METOPROLOL SUCCINATE 50 MG TAB.SR.24H PO ONE (10:46)
[2020-08-23] MEDS: METOPROLOL SUCCINATE 50 MG TAB.SR.24H PO SCH (10:47)
[2020-08-23] MEDS: LEVOFLOXACIN 250 MG/D5W 50ML 50 ML IVPB SCH (10:52)
[2020-08-23] MEDS: ATORVASTATIN 40 MG TABLET PO SCH (15:00)
[2020-08-23] MEDS: Vitamin B Complex/Vit C/Folic Acid PO SCH (15:13)
[2020-08-23] MEDS: PANTOPRAZOLE 40 MG TAB DR PO SCH (15:13)
[2020-08-23 19:05] LABS: APPEARANCE,URINE TURBID (CLEAR); BILIRUBIN,URINE SMALL (NEGATIVE); COLOR,URINE BROWN (YELLOW); GLUCOSE, URINE (UA) NEGATIVE (NEGATIVE); KETONES,URINE 5 mg/dL (NEGATIVE); LEUKOCYTE ESTERASE ,URINE LARGE (NEGATIVE); NITRATE,URINE NEGATIVE (NEGATIVE); OCCULT BLOOD,URINE LARGE (NEGATIVE); PH,URINE 5.5 (5.0-8.0); PROTEIN,URINE 100 mg/dL (NEGATIVE); UROBILINOGEN,URINE 0.2 mg/dL (0.2-1.0)
[2020-08-23 19:28] LABS: BACTERIA,URINE Few /HPF (None Seen); RBC,URINE None Seen /HPF (0-1); SQUAMOUS EPITHELIAL CELL,UR None Seen /HPF (0-2); WBC,URINE TNTC /HPF (0-1); YEAST,URINE BUDDING None Seen /HPF (None Seen)
[2020-08-23] MEDS ORDERED: FLUCONAZOLE 100 MG TAB PO SCH (20:00)
[2020-08-23] MEDS: LABETALOL 20MG SYG IV PRN (23:50)
[2020-08-24] VITALS (7 sets, daily range): BP systolic 151–162; BP diastolic 75–103
[2020-08-24 05:49] LABS: HEMATOCRIT 28.7 % (36-48); MEAN CORPUSCULAR HEMOGLOBIN 29.9 pg (27.0-33.0); MEAN CORPUSCULAR HGB CONC 32.1 g/dL (32.0-36.0); MEAN CORPUSCULAR VOLUME 93.2 fL (79-99); RED BLOOD CELL COUNT(AUTO) 3.08 MIL/uL (4.00-5.50); RED CELL DISTRIBUTION WIDTH 16.2 % (11.0-15.5); WHITE BLOOD COUNT (AUTO) 19.9 K/uL (4.8-10.8)
[2020-08-24 06:19] LABS: CREATININE 3.3 mg/dL (0.5-1.5); POTASSIUM 4.1 mmol/L (3.5-5.1)
[2020-08-24] MEDS: INSULIN R PO SS1 SQ SCH ×4 (06:22→20:18)
[2020-08-24] MEDS: METOPROLOL TARTRATE 1 MG/ML 5ML VIAL IV PRN ×2 (06:23→17:29)
[2020-08-24] MEDS: PANTOPRAZOLE 40 MG TAB DR PO SCH (08:12)
[2020-08-24] MEDS: Vitamin B Complex/Vit C/Folic Acid PO SCH (08:12)
[2020-08-24] MEDS: ATORVASTATIN 40 MG TABLET PO SCH (08:13)
[2020-08-24] MEDS: BALSAM PERU/CASTOR OIL 60 GM TUBE TP SCH ×3 (08:13→21:23)
[2020-08-24] MEDS: METOPROLOL SUCCINATE 50 MG TAB.SR.24H PO SCH ×2 (08:13→20:16)
[2020-08-24] MEDS: IRON SUCROSE COMPLEX 100 MG in 0.9%NACL 50ML 50 ML IV SCH (08:15)
[2020-08-24] MEDS ORDERED: CEFTRIAXONE 1G VIAL IV SCH (09:00)
[2020-08-25] VITALS (7 sets, daily range): BP systolic 125–223; BP diastolic 66–153
[2020-08-25] MEDS: METOPROLOL TARTRATE 1 MG/ML 5ML VIAL IV PRN (04:39)
[2020-08-25 05:15] LABS: HEMATOCRIT 28.6 % (36-48); MEAN CORPUSCULAR HEMOGLOBIN 30.1 pg (27.0-33.0); MEAN CORPUSCULAR HGB CONC 32.2 g/dL (32.0-36.0); MEAN CORPUSCULAR VOLUME 93.5 fL (79-99); RED BLOOD CELL COUNT(AUTO) 3.06 MIL/uL (4.00-5.50); RED CELL DISTRIBUTION WIDTH 16.3 % (11.0-15.5); WHITE BLOOD COUNT (AUTO) 18.4 K/uL (4.8-10.8)
[2020-08-25 05:31] LABS: CREATININE 3.8 mg/dL (0.5-1.5); POTASSIUM 4.3 mmol/L (3.5-5.1)
[2020-08-25] MEDS: INSULIN R PO SS1 SQ SCH ×4 (05:57→20:04)
[2020-08-25] MEDS: METOPROLOL SUCCINATE 50 MG TAB.SR.24H PO SCH ×2 (09:29→20:41)
[2020-08-25] MEDS: PANTOPRAZOLE 40 MG TAB DR PO SCH (09:30)
[2020-08-25] MEDS: Vitamin B Complex/Vit C/Folic Acid PO SCH (09:30)
[2020-08-25] MEDS ORDERED: DILTIAZEM 120MG SR CAP PO SCH (09:30)
[2020-08-25] MEDS: ATORVASTATIN 40 MG TABLET PO SCH (09:30)
[2020-08-25] MEDS: CLONIDINE HCL 0.1 MG TABLET PO PRN (09:30)
[2020-08-25] MEDS: LABETALOL 20MG SYG IV PRN (09:31)
[2020-08-25] MEDS: BALSAM PERU/CASTOR OIL 60 GM TUBE TP SCH ×3 (09:34→20:44)
[2020-08-25] MEDS: IRON SUCROSE COMPLEX 100 MG in 0.9%NACL 50ML 50 ML IV SCH (09:38)
[2020-08-25] MEDS ORDERED: CEFTRIAXONE 2GM VIAL IVP SCH (09:45)
[2020-08-26 00:47] VITALS: BP 135/94
[2020-08-26 04:31] VITALS: BP 162/74
[2020-08-26 04:56] LABS: MEAN CORPUSCULAR HGB CONC 32.1 g/dL (32.0-36.0); MEAN CORPUSCULAR VOLUME 93.3 fL (79-99); RED CELL DISTRIBUTION WIDTH 16.3 % (11.0-15.5)
[2020-08-26 05:06] LABS: CREATININE 4.1 mg/dL (0.5-1.5); INR 1.12 (0.85-1.15); POTASSIUM 4.1 mmol/L (3.5-5.1); PROTHROMBIN TIME 12.1 SEC (9.6-11.6)
[2020-08-26 05:08] LABS: PARTIAL THROMBOPLASTIN TIME 34.5 SEC (26.3-35.5)
[2020-08-26] MEDS: INSULIN R PO SS1 SQ SCH ×4 (05:21→20:45)
[2020-08-26] MEDS ORDERED: MEROPENEM 1 GM VIAL IVP SCH (08:00)
[2020-08-26] MEDS ORDERED: DILTIAZEM 120MG SR CAP PO SCH (09:00)
[2020-08-26] MEDS ORDERED: DILTIAZEM 180MG SR CAP PO SCH (09:00)
[2020-08-26 09:02] LABS: ABG BASE EXCESS -0.2 mmol/L (-2.0-3.0); ABG HCO3 27.3 mmol/L (21.0-28.0); ABG OXYGEN SATURATION 95.4 % (95.0-99.0); ABG PCO2 56 mmHg (32-45)
[2020-08-26] MEDS ORDERED: FUROSEMIDE 40MG VIAL ONE (09:04)
[2020-08-26] MEDS: IRON SUCROSE COMPLEX 100 MG in 0.9%NACL 50ML 50 ML IV SCH (09:08)
[2020-08-26] MEDS: MEROPENEM 1 GM VIAL IVP SCH ×2 (09:08→19:37)
[2020-08-26] MEDS: DILTIAZEM 180MG SR CAP PO SCH (09:08)
[2020-08-26] MEDS: DILTIAZEM 120MG SR CAP PO SCH (09:09)
[2020-08-26] MEDS: METOPROLOL SUCCINATE 50 MG TAB.SR.24H PO SCH ×2 (09:09→19:37)
[2020-08-26] MEDS: BALSAM PERU/CASTOR OIL 60 GM TUBE TP SCH ×3 (09:10→19:37)
[2020-08-26] MEDS: Vitamin B Complex/Vit C/Folic Acid PO SCH (09:10)
[2020-08-26] MEDS: PANTOPRAZOLE 40 MG TAB DR PO SCH (09:10)
[2020-08-26] MEDS: ATORVASTATIN 40 MG TABLET PO SCH (09:10)
[2020-08-26] MEDS ORDERED: FUROSEMIDE 40MG VIAL IV SCH (09:15)
[2020-08-26 09:30] VITALS: BP 178/118
[2020-08-26 13:46] VITALS: BP 157/107
[2020-08-26 17:04] VITALS: BP 157/66
[2020-08-26 20:00] VITALS: BP 167/94
[2020-08-27 00:52] VITALS: BP 151/96
[2020-08-27 04:00] VITALS: BP 157/73
[2020-08-27 05:27] LABS: HEMATOCRIT 28.7 % (36-48); MEAN CORPUSCULAR HEMOGLOBIN 29.4 pg (27.0-33.0); MEAN CORPUSCULAR VOLUME 94.7 fL (79-99); PLATELET COUNT (AUTO) 164 K/uL (130-400); RED BLOOD CELL COUNT(AUTO) 3.03 MIL/uL (4.00-5.50); RED CELL DISTRIBUTION WIDTH 16.4 % (11.0-15.5); WHITE BLOOD COUNT (AUTO) 16.8 K/uL (4.8-10.8)
[2020-08-27] MEDS: INSULIN R PO SS1 SQ SCH ×4 (05:37→20:19)
[2020-08-27 05:48] LABS: CREATININE 2.8 mg/dL (0.5-1.5); POTASSIUM 3.8 mmol/L (3.5-5.1)
[2020-08-27 05:51] LABS: B-TYPE NATRIURETIC PEPTIDE 4300 pg/mL (0-100)
[2020-08-27 08:22] VITALS: BP 166/74
[2020-08-27] MEDS: BALSAM PERU/CASTOR OIL 60 GM TUBE TP SCH ×3 (09:00→20:18)
[2020-08-27] MEDS: IRON SUCROSE COMPLEX 100 MG in 0.9%NACL 50ML 50 ML IV SCH (09:00)
[2020-08-27] MEDS: MEROPENEM 1 GM VIAL IVP SCH ×2 (12:15→20:17)
[2020-08-27] MEDS: Vitamin B Complex/Vit C/Folic Acid PO SCH (12:16)
[2020-08-27] MEDS: DILTIAZEM 180MG SR CAP PO SCH (12:16)
[2020-08-27] MEDS: PANTOPRAZOLE 40 MG TAB DR PO SCH (12:16)
[2020-08-27] MEDS: METOPROLOL SUCCINATE 50 MG TAB.SR.24H PO SCH ×2 (12:16→20:18)
[2020-08-27] MEDS: ATORVASTATIN 40 MG TABLET PO SCH (12:16)
[2020-08-27] MEDS: DILTIAZEM 120MG SR CAP PO SCH (12:17)
[2020-08-27 13:45] VITALS: BP 150/80
[2020-08-27 17:38] VITALS: BP 151/78
[2020-08-27 19:36] VITALS: BP 151/70
[2020-08-28] VITALS (7 sets, daily range): BP systolic 133–153; BP diastolic 44–82
[2020-08-28] MEDS: INSULIN R PO SS1 SQ SCH ×4 (05:42→21:11)
[2020-08-28] MEDS: METOPROLOL SUCCINATE 50 MG TAB.SR.24H PO SCH ×2 (09:48→21:06)
[2020-08-28] MEDS: IRON SUCROSE COMPLEX 100 MG in 0.9%NACL 50ML 50 ML IV SCH (09:48)
[2020-08-28] MEDS: Vitamin B Complex/Vit C/Folic Acid PO SCH (09:50)
[2020-08-28] MEDS: DILTIAZEM 180MG SR CAP PO SCH (09:50)
[2020-08-28] MEDS: DILTIAZEM 120MG SR CAP PO SCH (09:50)
[2020-08-28] MEDS: PANTOPRAZOLE 40 MG TAB DR PO SCH (09:50)
[2020-08-28] MEDS: ATORVASTATIN 40 MG TABLET PO SCH (09:50)
[2020-08-28] MEDS: BALSAM PERU/CASTOR OIL 60 GM TUBE TP SCH ×3 (09:51→21:07)
[2020-08-28 10:05] LABS: HEMATOCRIT 28.5 % (36-48); MEAN CORPUSCULAR HEMOGLOBIN 29.5 pg (27.0-33.0); MEAN CORPUSCULAR HGB CONC 30.5 g/dL (32.0-36.0); MEAN CORPUSCULAR VOLUME 96.6 fL (79-99); PLATELET COUNT (AUTO) 154 K/uL (130-400); RED BLOOD CELL COUNT(AUTO) 2.95 MIL/uL (4.00-5.50); RED CELL DISTRIBUTION WIDTH 16.9 % (11.0-15.5); WHITE BLOOD COUNT (AUTO) 14.7 K/uL (4.8-10.8)
[2020-08-28 10:19] LABS: CREATININE 1.8 mg/dL (0.5-1.5); POTASSIUM 3.5 mmol/L (3.5-5.1)
[2020-08-28 10:40] LABS: LYMPHOCYTES % (MANUAL) 2 % (22-44); MONOCYTES % (MANUAL) 8 % (2-9); SEGMENTED NEUTROPHILS % 90 % (40-70)
[2020-08-28 10:41] LABS: MAN.DIFF COMMENT-IMPRESSION MANUAL DIFFERENTIAL; PLATELET MORPHOLOGY COMMENT ADEQUATE
[2020-08-28] MEDS: MEROPENEM 1 GM VIAL IVP SCH ×2 (13:27→21:05)
[2020-08-29 03:45] VITALS: BP 128/48
[2020-08-29 05:22] LABS: BASOPHILS % (AUTO) 0.3 % (0.0-5.0); EOSINOPHILS % (AUTO) 2.3 % (0.0-8.0); HEMATOCRIT 28.9 % (36-48); LYMPHOCYTES % (AUTO) 5.3 % (21.0-51.0); MEAN CORPUSCULAR HEMOGLOBIN 29.5 pg (27.0-33.0); MEAN CORPUSCULAR HGB CONC 30.1 g/dL (32.0-36.0); MONOCYTES % (AUTO) 9.8 % (3.0-13.0); NEUTROPHILS % (AUTO) 81.2 % (40.0-77.0); PLATELET COUNT (AUTO) 153 K/uL (130-400); RED BLOOD CELL COUNT(AUTO) 2.95 MIL/uL (4.00-5.50); RED CELL DISTRIBUTION WIDTH 17.2 % (11.0-15.5); WHITE BLOOD COUNT (AUTO) 16.7 K/uL (4.8-10.8)
[2020-08-29 05:28] LABS: CREATININE 2.4 mg/dL (0.5-1.5)
[2020-08-29] MEDS ORDERED: DEXTROSE 50%-WATER 50 ML DISP.SYRIN IV ONE (05:29)
[2020-08-29] MEDS: INSULIN R PO SS1 SQ SCH ×3 (06:16→15:44)
[2020-08-29 08:44] VITALS: BP 127/73
[2020-08-29] MEDS: IRON SUCROSE COMPLEX 100 MG in 0.9%NACL 50ML 50 ML IV SCH (08:54)
[2020-08-29] MEDS: DILTIAZEM 180MG SR CAP PO SCH (08:56)
[2020-08-29] MEDS: Vitamin B Complex/Vit C/Folic Acid PO SCH (08:57)
[2020-08-29] MEDS: DILTIAZEM 120MG SR CAP PO SCH (08:57)
[2020-08-29] MEDS: METOPROLOL SUCCINATE 50 MG TAB.SR.24H PO SCH (08:58)
[2020-08-29] MEDS: MEROPENEM 1 GM VIAL IVP SCH (09:31)
[2020-08-29] MEDS: PANTOPRAZOLE 40 MG TAB DR PO SCH (09:33)
[2020-08-29] MEDS: ATORVASTATIN 40 MG TABLET PO SCH (09:33)
[2020-08-29] MEDS: BALSAM PERU/CASTOR OIL 60 GM TUBE TP SCH ×2 (09:34→14:54)
[2020-08-29 12:19] VITALS: BP 116/53
[2020-08-29 15:58] VITALS: BP 149/72
[2020-08-29] MEDS: ACETAMINOPHEN WITH CODEINE 1 TAB TAB PO PRN (15:59)
[2020-12-30] MEDS ORDERED: LEVO500T90 PO (21:58)
[2021-01-01] MEDS ORDERED: LEVO500T90 PO (12:01)
== END 2020-08-29 17:40 | DRG 673 ==
LOC: EDH 14:28 → EDHIP 17:20 → OBSVTOIN 17:20 → 3AH 22:45
PROVIDERS: ADMIT Internal Medicine Pulmonary Disease; ATTEND Internal Medicine Pulmonary Disease
PROC: 30233N1 Transfusion of Nonautologous Red Blood Cells into Peripheral Vein, Percutaneous Approach (ICD-10-PCS; principal; 2020-08-12)
PROC: 02HV33Z Insertion of Infusion Device into Superior Vena Cava, Percutaneous Approach (ICD-10-PCS; 2020-08-12)
PROC: 5A1D70Z Performance of Urinary Filtration, Intermittent, Less than 6 Hours Per Day (ICD-10-PCS; 2020-08-12)
PROC: 0JH63XZ Insertion of Tunneled Vascular Access Device into Chest Subcutaneous Tissue and Fascia, Percutaneous Approach (ICD-10-PCS; 2020-08-12)
PROC: 5A1D70Z Performance of Urinary Filtration, Intermittent, Less than 6 Hours Per Day (ICD-10-PCS; 2020-08-13)
PROC: 5A1D70Z Performance of Urinary Filtration, Intermittent, Less than 6 Hours Per Day (ICD-10-PCS; 2020-08-14)
PROC: 5A1D70Z Performance of Urinary Filtration, Intermittent, Less than 6 Hours Per Day (ICD-10-PCS; 2020-08-15)
PROC: 0DB98ZX Excision of Duodenum, Via Natural or Artificial Opening Endoscopic, Diagnostic (ICD-10-PCS; 2020-08-17)
PROC: 0DB68ZX Excision of Stomach, Via Natural or Artificial Opening Endoscopic, Diagnostic (ICD-10-PCS; 2020-08-17)
PROC: 5A1D70Z Performance of Urinary Filtration, Intermittent, Less than 6 Hours Per Day (ICD-10-PCS; 2020-08-17)
PROC: 0DBP8ZZ Excision of Rectum, Via Natural or Artificial Opening Endoscopic (ICD-10-PCS; 2020-08-18)
PROC: 5A1D70Z Performance of Urinary Filtration, Intermittent, Less than 6 Hours Per Day (ICD-10-PCS; 2020-08-19)
PROC: 5A1D70Z Performance of Urinary Filtration, Intermittent, Less than 6 Hours Per Day (ICD-10-PCS; 2020-08-21)
PROC: 5A09357 Assistance with Respiratory Ventilation, Less than 24 Consecutive Hours, Continuous Positive Airway Pressure (ICD-10-PCS; 2020-08-24)
PROC: 5A1D70Z Performance of Urinary Filtration, Intermittent, Less than 6 Hours Per Day (ICD-10-PCS; 2020-08-24)
PROC: 5A09357 Assistance with Respiratory Ventilation, Less than 24 Consecutive Hours, Continuous Positive Airway Pressure (ICD-10-PCS; 2020-08-25)
PROC: 5A09357 Assistance with Respiratory Ventilation, Less than 24 Consecutive Hours, Continuous Positive Airway Pressure (ICD-10-PCS; 2020-08-26)
PROC: 5A1D70Z Performance of Urinary Filtration, Intermittent, Less than 6 Hours Per Day (ICD-10-PCS; 2020-08-26)
PROC: 5A09357 Assistance with Respiratory Ventilation, Less than 24 Consecutive Hours, Continuous Positive Airway Pressure (ICD-10-PCS; 2020-08-27)
PROC: 5A1D70Z Performance of Urinary Filtration, Intermittent, Less than 6 Hours Per Day (ICD-10-PCS; 2020-08-27)
PROC: 5A1D70Z Performance of Urinary Filtration, Intermittent, Less than 6 Hours Per Day (ICD-10-PCS; 2020-08-28)
DX: N17.9 Acute kidney failure, unspecified (principal); I50.33 Acute on chronic diastolic (congestive) heart failure; J96.01 Acute respiratory failure with hypoxia; K29.01 Acute gastritis with bleeding; K21.01 Gastro-esophageal reflux disease with esophagitis, with bleeding; K57.31 Diverticulosis of large intestine without perforation or abscess with bleeding; I13.2 Hypertensive heart and chronic kidney disease with heart failure and with stage 5 chronic kidney disease, or end stage renal disease; N39.0 Urinary tract infection, site not specified; E87.1 Hypo-osmolality and hyponatremia; D62 Acute posthemorrhagic anemia; I48.19 Other persistent atrial fibrillation; K63.3 Ulcer of intestine; N18.6 End stage renal disease; E11.22 Type 2 diabetes mellitus with diabetic chronic kidney disease; D64.9 Anemia, unspecified; E87.6 Hypokalemia; Z68.36 Body mass index [BMI] 36.0-36.9, adult; D63.1 Anemia in chronic kidney disease; E66.01 Morbid (severe) obesity due to excess calories; I05.0 Rheumatic mitral stenosis; I25.10 Atherosclerotic heart disease of native coronary artery without angina pectoris; Z20.822 Contact with and (suspected) exposure to COVID-19; B96.1 Klebsiella pneumoniae [K. pneumoniae] as the cause of diseases classified elsewhere; B96.20 Unspecified Escherichia coli [E. coli] as the cause of diseases classified elsewhere; E78.5 Hyperlipidemia, unspecified; K55.20 Angiodysplasia of colon without hemorrhage; L89.309 Pressure ulcer of unspecified buttock, unspecified stage; K64.1 Second degree hemorrhoids; K62.1 Rectal polyp; Z99.2 Dependence on renal dialysis; Z79.01 Long term (current) use of anticoagulants; Z79.84 Long term (current) use of oral hypoglycemic drugs; Z79.899 Other long term (current) drug therapy; Z91.19 Patient's noncompliance with other medical treatment and regimen; Z83.3 Family history of diabetes mellitus; Z80.51 Family history of malignant neoplasm of kidney; Z80.0 Family history of malignant neoplasm of digestive organs; Z82.49 Family history of ischemic heart disease and other diseases of the circulatory system
CPT/HCPCS: 36415; 36430; 36558; 36600; 43239; 45380; 71045; 77001; 80048; 80053; 80061; 80074; 81001; 82040; 82270; 82550; 82728; 82803; 82948; 83036; 83540; 83550; 83874; 83880; 84100; 84132; 84145; 84443; 84484; 84520; 85014; 85018; 85025; 85027; 85610; 85730; 86701; 86704; 86706; 86850; 86900; 86901; 86923; 87040; 87077; 87088; 87186; 87340; 87390; 87520; 88305; 90935; 93005; 93971; 94660; 97039; C1750; C1894; G0378; J0330; J0360; J0690; J0696; J1100; J1644; J1650; J1756; J1815; J1940; J1956; J2001; J2185; J2250; J2370; J2405; J2704; J2710; J3010; J3490; J7070; P9016; U0003

== ENCOUNTER 2020-12-30 16:55 | Observation (INO) | payer OTHER, MEDICARE ==
[~2020-12-30] VITALS: Ht 154.9 cm; Wt 61.8 kg
[~2020-12-30 16:55] MED LIST changes: +ACET-2247 PO; +ACET1TAB25 PO; +ALOG6.252 PO; +BUME2TAB5 PO; +EPOE10004 IJ; +EPOE10008 IJ; +FERR324T4 PO; +FOLI1TAB61 PO; +GLUC1VIA14 IJ; +LACT10SO9 PO; +LOPE2 PO; +MELA5CAP PO; +METO5TAB7 PO; +MUPI15CR12 TP; +ONDA4TAB4 PO; +SODI100037 PO; +SODI650T PO
[2020-12-30 17:42] VITALS: BP 193/114
[2020-12-30] MEDS ORDERED: LACTULOSE 20 GM/30 ML UDCUP PO ONE (18:00)
[2020-12-30] MEDS ORDERED: ONDANSETRON 4MG INJ IVP ONE (18:00)
[2020-12-30] MEDS ORDERED: MAGNESIUM CITRATE 296 ML SOLUTION PO ONE (18:00)
[2020-12-30 18:31] LABS: BASOPHILS % (AUTO) 0.3 % (0.0-5.0); EOSINOPHILS % (AUTO) 0.1 % (0.0-8.0); HEMATOCRIT 45.2 % (36-48); LYMPHOCYTES % (AUTO) 6.5 % (21.0-51.0); MEAN CORPUSCULAR HGB CONC 32.3 g/dL (32.0-36.0); MEAN CORPUSCULAR VOLUME 92.8 fL (79-99); MONOCYTES % (AUTO) 3.1 % (3.0-13.0); NEUTROPHILS % (AUTO) 89.6 % (40.0-77.0); PLATELET COUNT (AUTO) 181 K/uL (130-400); RED BLOOD CELL COUNT(AUTO) 4.87 MIL/uL (4.00-5.50); RED CELL DISTRIBUTION WIDTH 14.6 % (11.0-15.5); WHITE BLOOD COUNT (AUTO) 16.9 K/uL (4.8-10.8)
[2020-12-30 18:36] LABS: CREATININE 3.2 mg/dL (0.5-1.5); POTASSIUM 3.5 mmol/L (3.5-5.1)
[2020-12-30 18:40] LABS: ALBUMIN 3.1 g/dL (3.5-5.0); BILIRUBIN,TOTAL 0.5 mg/dL (0.2-1.0); TOTAL PROTEIN, SERUM 6.7 g/dL (6.0-8.3)
[2020-12-30] MEDS ORDERED: PROMETHAZINE HCL 25 MG/ML 1ML AMPULE IM ONE (21:00)
[2020-12-30 21:10] VITALS: BP 174/98
[2020-12-30] MEDS ORDERED: METR500T PO (21:58)
[2020-12-30] MEDS ORDERED: LEVO500T89 PO (21:58)
[2020-12-30] MEDS ORDERED: LEVOFLOXACIN 500 MG TABLET PO ONE (22:00)
[2020-12-30] MEDS ORDERED: METRONIDAZOLE 500 MG TABLET PO ONE (22:00)
[2020-12-30] MEDS ORDERED: METOCLOPRAMIDE 10 MG/2 ML VIAL ONE (22:23)
[2020-12-30] MEDS ORDERED: MORPHINE 2 MG SYG ONE (22:23)
[2020-12-30] MEDS ORDERED: ONDANSETRON 4MG INJ IV PRN (22:30)
[2020-12-30] MEDS ORDERED: GUAIFENESIN-DM 200/20 MG 10 ML PO PRN (22:30)
[2020-12-30] MEDS ORDERED: HYDROMORPHONE 1 MG INJ IV PRN (22:30)
[2020-12-30] MEDS ORDERED: METOCLOPRAMIDE 10 MG/2 ML VIAL IVP ONE (22:30)
[2020-12-30] MEDS ORDERED: MORPHINE 2 MG SYG IVP ONE (22:30)
[2020-12-30] MEDS ORDERED: HYDRALAZINE 20MG/ML VIAL IV PRN (22:30)
[2020-12-30] MEDS ORDERED: NITROGLYCERIN 0.4 MG SL TAB SL PRN (22:30)
[2020-12-30 22:40] VITALS: BP 144/91
[2020-12-30] MEDS ORDERED: METRONIDAZOLE 500MG/100ML BAG 100 ML ONE (23:16)
[2020-12-30] MEDS: METRONIDAZOLE 250MG/50ML 50 ML IV SCH (23:20)
[2020-12-31] VITALS (25 sets, daily range): BP systolic 99–142; BP diastolic 46–90
[2020-12-31] MEDS ORDERED: DOCU100C33 PO (00:28)
[2020-12-31] MEDS ORDERED: CLON0.2T PO (00:28)
[2020-12-31] MEDS ORDERED: ONDA-104 PO (00:28)
[2020-12-31] MEDS ORDERED: PANT40TA54 PO (00:28)
[2020-12-31] MEDS ORDERED: METO-391 PO (00:28)
[2020-12-31] MEDS ORDERED: FOLI1TAB85 PO (00:28)
[2020-12-31] MEDS ORDERED: ATOR40TA71 PO (00:28)
[2020-12-31] MEDS ORDERED: DILT300C23 PO (00:28)
[2020-12-31] MEDS ORDERED: DOCUSATE SODIUM 100 MG CAP PO PRN (01:00)
[2020-12-31] MEDS ORDERED: CLONIDINE HCL 0.1 MG TABLET PO PRN (01:00)
[2020-12-31] MEDS ORDERED: SEMA14TA PO (04:38)
[2020-12-31] MEDS ORDERED: METRONIDAZOLE 500MG/100ML BAG 100 ML ONE (06:21)
[2020-12-31] MEDS: METRONIDAZOLE 250MG/50ML 50 ML IV SCH ×3 (06:33→22:30)
[2020-12-31 06:41] LABS: BASOPHILS % (AUTO) 0.1 % (0.0-5.0); HEMATOCRIT 43.4 % (36-48); LYMPHOCYTES % (AUTO) 4.5 % (21.0-51.0); MEAN CORPUSCULAR HEMOGLOBIN 30.1 pg (27.0-33.0); MEAN CORPUSCULAR HGB CONC 32.5 g/dL (32.0-36.0); MEAN CORPUSCULAR VOLUME 92.7 fL (79-99); MONOCYTES % (AUTO) 3.3 % (3.0-13.0); NEUTROPHILS % (AUTO) 91.6 % (40.0-77.0); PLATELET COUNT (AUTO) 167 K/uL (130-400); RED BLOOD CELL COUNT(AUTO) 4.68 MIL/uL (4.00-5.50); RED CELL DISTRIBUTION WIDTH 14.7 % (11.0-15.5); WHITE BLOOD COUNT (AUTO) 21.7 K/uL (4.8-10.8)
[2020-12-31 06:51] LABS: CREATININE 3.4 mg/dL (0.5-1.5); POTASSIUM 3.7 mmol/L (3.5-5.1)
[2020-12-31] MEDS ORDERED: BUMETANIDE 1 MG TAB PO SCH (09:00)
[2020-12-31] MEDS: CETIRIZINE HCL 5 MG TABLET PO SCH (09:00)
[2020-12-31] MEDS: ENOXAPARIN SODIUM 30 MG/0.3 ML SQ SCH (09:00)
[2020-12-31] MEDS: ATORVASTATIN 40 MG TABLET PO SCH (09:00)
[2020-12-31] MEDS: ATENOLOL 25 MG TABLET PO SCH ×2 (09:00→21:00)
[2020-12-31] MEDS: ALOGLIPTIN BENZOATE 6.25 MG PO SCH (09:00)
[2020-12-31] MEDS: LINAGLIPTIN 5 MG TABLET PO SCH (09:00)
[2020-12-31] MEDS: DILTIAZEM 180MG SR CAP PO SCH (09:00)
[2020-12-31] MEDS: Vitamin B Complex/Vit C/Folic Acid PO SCH (09:00)
[2020-12-31] MEDS: FERROUS SULFATE 325 MG TABLET.DR PO SCH ×2 (09:00→21:00)
[2020-12-31] MEDS: DILTIAZEM 120MG SR CAP PO SCH (09:00)
[2020-12-31] MEDS ORDERED: NON-FORMULARY MEDICATION 1 EACH (Vit B Cmplx 3/FA/Vit C/Biotin (Rena-Vite Rx Tablet) 1 EAC PO SCH (09:00)
[2020-12-31] MEDS: CALCITRIOL 0.25 MCG CAP PO SCH (09:00)
[2020-12-31] MEDS: METOLAZONE 2.5 MG TABLET PO SCH (09:00)
[2020-12-31] MEDS: NIFEDIPINE ER 30 MG TAB PO SCH (09:00)
[2020-12-31] MEDS: CLONIDINE HCL 0.2 MG TABLET PO SCH ×2 (09:00→21:00)
[2020-12-31] MEDS ORDERED: ATORVASTATIN 40 MG TABLET PO SCH (09:00)
[2020-12-31] MEDS: LEVOFLOXACIN 250 MG/D5W 50ML 50 ML IVPB SCH (09:00)
[2020-12-31] MEDS ORDERED: 0.9%NACL 1000ML 1,000 ML IV SCH (10:30)
[2020-12-31] MEDS ORDERED: HEPARIN 5,000 UNIT VIAL SQ SCH (16:00)
[2020-12-31] MEDS ORDERED: VANCOMYCIN 1G VIAL IVPB ONE (20:00)
[2020-12-31] MEDS ORDERED: VANCOMYCIN 1G/250ML KIT 250 ML IV SCH (20:00)
[2020-12-31] MEDS ORDERED: VANCOMYCIN PROTOCOL PER PHARMACY IV SCH (20:00)
[2020-12-31] MEDS ORDERED: VANCOMYCIN 750MG VIAL ONE (21:50)
[2021-01-01 02:11] VITALS: BP 99/51
[2021-01-01 03:48] VITALS: BP 116/71
[2021-01-01 04:20] VITALS: BP 124/59
[2021-01-01 06:37] LABS: BASOPHILS % (AUTO) 0.5 % (0.0-5.0); EOSINOPHILS % (AUTO) 0.8 % (0.0-8.0); HEMATOCRIT 37.5 % (36-48); LYMPHOCYTES % (AUTO) 14.7 % (21.0-51.0); MEAN CORPUSCULAR HEMOGLOBIN 30.1 pg (27.0-33.0); MEAN CORPUSCULAR HGB CONC 32.5 g/dL (32.0-36.0); MEAN CORPUSCULAR VOLUME 92.6 fL (79-99); MONOCYTES % (AUTO) 7.6 % (3.0-13.0); PLATELET COUNT (AUTO) 148 K/uL (130-400); RED BLOOD CELL COUNT(AUTO) 4.05 MIL/uL (4.00-5.50); WHITE BLOOD COUNT (AUTO) 11.7 K/uL (4.8-10.8)
[2021-01-01 06:47] LABS: CREATININE 2.9 mg/dL (0.5-1.5); POTASSIUM 3.6 mmol/L (3.5-5.1)
[2021-01-01 08:00] VITALS: BP 132/62
[2021-01-01] MEDS: Vitamin B Complex/Vit C/Folic Acid PO SCH (08:48)
[2021-01-01] MEDS: LEVOFLOXACIN 250 MG/D5W 50ML 50 ML IVPB SCH (08:48)
[2021-01-01] MEDS: CETIRIZINE HCL 5 MG TABLET PO SCH (08:48)
[2021-01-01] MEDS: LINAGLIPTIN 5 MG TABLET PO SCH (08:49)
[2021-01-01] MEDS: NIFEDIPINE ER 30 MG TAB PO SCH (08:49)
[2021-01-01] MEDS: METOLAZONE 2.5 MG TABLET PO SCH (08:49)
[2021-01-01] MEDS: ATORVASTATIN 40 MG TABLET PO SCH (08:49)
[2021-01-01] MEDS: FERROUS SULFATE 325 MG TABLET.DR PO SCH (08:49)
[2021-01-01] MEDS: ATENOLOL 25 MG TABLET PO SCH (08:50)
[2021-01-01] MEDS: DILTIAZEM 180MG SR CAP PO SCH (08:52)
[2021-01-01] MEDS: CLONIDINE HCL 0.2 MG TABLET PO SCH (08:52)
[2021-01-01] MEDS: DILTIAZEM 120MG SR CAP PO SCH (08:52)
[2021-01-01] MEDS: ALOGLIPTIN BENZOATE 6.25 MG PO SCH (08:53)
[2021-01-01] MEDS: ENOXAPARIN SODIUM 30 MG/0.3 ML SQ SCH (08:53)
[2021-01-01] MEDS: CALCITRIOL 0.25 MCG CAP PO SCH (09:00)
[2021-01-01 11:35] VITALS: BP 125/63
[2021-01-01] MEDS ORDERED: LEVO500T89 PO (12:01)
[2021-01-01] MEDS ORDERED: METR500T PO (12:01)
[2021-01-01] MEDS ORDERED: COMPOUND IV MISC 1 EACH IVSOLN MISC PRN (12:30)
[2021-01-01 15:12] LABS: HEPATITIS Bs ANTIGEN SCREEN P Negative (Negative)
[2021-01-07] MEDS ORDERED: EPOETIN ALFA-EPBX (ESRD) 10,000 UNIT/ML VIAL IJ SCH (21:00)
== END 2021-01-01 14:40 | disposition home or self-care (01) ==
LOC: EDH 16:55 → EDHIP 22:25 → 3AH 01-01 04:08
PROVIDERS: ADMIT Internal Medicine; ATTEND Internal Medicine
DX: A41.9 Sepsis, unspecified organism (principal); K57.32 Diverticulitis of large intestine without perforation or abscess without bleeding; I12.0 Hypertensive chronic kidney disease with stage 5 chronic kidney disease or end stage renal disease; N18.6 End stage renal disease; E11.22 Type 2 diabetes mellitus with diabetic chronic kidney disease; D63.1 Anemia in chronic kidney disease; K21.9 Gastro-esophageal reflux disease without esophagitis; E78.5 Hyperlipidemia, unspecified; E78.00 Pure hypercholesterolemia, unspecified; M19.90 Unspecified osteoarthritis, unspecified site; I20.0 Unstable angina; K59.00 Constipation, unspecified; Z79.01 Long term (current) use of anticoagulants; Z99.2 Dependence on renal dialysis
CPT/HCPCS: 36415 ×3; 71045; 74176; 80048 ×2; 80053; 82948 ×5; 83605; 83690 ×2; 84484; 85025 ×3; 86704; 86706; 87040 ×2; 87340; 96365; 96366 ×3; 96367; 96368; 96372 ×3; 96375 ×2; 96376; 99285; G0378 ×37; J1644; J1650 ×2; J1956 ×2; J2405 ×2; J2550; J2765; J3370; J3490 ×4; J7030; 90935

== ENCOUNTER 2021-12-15 23:08 | Inpatient (IN) | payer OTHER ==
[~2021-12-15] VITALS: Ht 152.4 cm; Wt 55.8 kg
[~2021-12-15 23:08] MED LIST changes: -ACET-2247 PO; -ACET1TAB25 PO; -ALOG6.252 PO; -AMOX250S73 PO; -ATEN50TA PO; -ATOR40TA69 PO; +ATOR40TA71 PO; -BUME2TAB5 PO; -CALC0.253 PO; -CETI10TA57 PO; +DILT180C89 PO; +DOCU100C33 PO; -DRON400T7 PO; -EPOE10004 IJ; -EPOE10008 IJ; -FERR324T4 PO; -FOLI1TAB61 PO; +FOLI1TAB85 PO; -FURO40TA5 PO; -GLUC1VIA14 IJ; -LACT10SO9 PO; -LOPE2 PO; -MELA5CAP PO; +METO100T14 PO; -METO5 PO; -METO5TAB7 PO; -MUPI15CR12 TP; -NIFE-39 PO; -OMEP20CA12 PO; +ONDA-104 PO; -ONDA4TAB4 PO; +PANT40TA54 PO; -PRED20TA3 PO; +SEMA14TA2 PO; -SITA25TA5 PO; -SODI100037 PO; -SODI650T PO
[2021-12-15 23:38] LABS: BASOPHILS % (AUTO) 0.4 % (0.0-5.0); EOSINOPHILS % (AUTO) 1.9 % (0.0-8.0); LYMPHOCYTES % (AUTO) 11.4 % (21.0-51.0); MEAN CORPUSCULAR HEMOGLOBIN 33.4 pg (27.0-33.0); MEAN CORPUSCULAR HGB CONC 31.8 g/dL (32.0-36.0); MEAN CORPUSCULAR VOLUME 105.1 fL (79-99); MONOCYTES % (AUTO) 6.2 % (3.0-13.0); NEUTROPHILS % (AUTO) 79.9 % (40.0-77.0); PLATELET COUNT (AUTO) 232 K/uL (130-400); RED BLOOD CELL COUNT(AUTO) 3.14 MIL/uL (4.00-5.50); RED CELL DISTRIBUTION WIDTH 15.2 % (11.0-15.5); WHITE BLOOD COUNT (AUTO) 11.4 K/uL (4.8-10.8)
[2021-12-15 23:51] LABS: INR 1.09 (0.85-1.15); PROTHROMBIN TIME 11.8 SEC (9.6-11.6)
[2021-12-15 23:53] LABS: CREATININE 5.3 mg/dL (0.5-1.5); POTASSIUM 5.6 mmol/L (3.5-5.1)
[2021-12-16] VITALS (19 sets, daily range): BP systolic 96–161; BP diastolic 55–86
[2021-12-16] LABS: ALBUMIN 3.4 g/dL (3.5-5.0); MAGNESIUM 2.1 mg/dL (1.80-2.40); TOTAL PROTEIN, SERUM 7.3 g/dL (6.0-8.3)
[2021-12-16 00:06] LABS: ABG BASE EXCESS -2.2 mmol/L (-2.0-3.0); ABG HCO3 24.1 mmol/L (21.0-28.0); ABG OXYGEN SATURATION 95.7 % (95.0-99.0); ABG PCO2 48 mmHg (32-45)
[2021-12-16 00:24] LABS: B-TYPE NATRIURETIC PEPTIDE 1490 pg/mL (0-100)
[2021-12-16] MEDS ORDERED: FUROSEMIDE 40MG VIAL IV ONE (00:30)
[2021-12-16] MEDS ORDERED: HYDRALAZINE 20MG/ML VIAL IV PRN (01:00)
[2021-12-16] MEDS ORDERED: ACETAMINOPHEN 325 MG TAB PO PRN (01:00)
[2021-12-16] MEDS ORDERED: ACETAMINOPHEN WITH CODEINE 1 TAB TAB PO PRN (01:00)
[2021-12-16] MEDS ORDERED: DILTIAZEM 180MG SR CAP PO SCH (01:00)
[2021-12-16] MEDS ORDERED: ONDANSETRON 4MG INJ IV PRN (01:00)
[2021-12-16] MEDS ORDERED: DOCUSATE SODIUM 100 MG CAP PO PRN (01:00)
[2021-12-16] MEDS ORDERED: ZOLPIDEM TARTRATE 5 MG TAB PO PRN (01:00)
[2021-12-16] MEDS ORDERED: CLONIDINE HCL 0.1 MG TABLET PO PRN (01:00)
[2021-12-16] MEDS ORDERED: ALBUTEROL 0.083% 2.5 MG/3 ML INH IH SCH (02:00)
[2021-12-16] MEDS ORDERED: ALBUTEROL 0.083% 2.5 MG/3 ML INH IH PRN (02:00)
[2021-12-16 02:27] LABS: ALBUMIN 3.2 g/dL (3.5-5.0); BILIRUBIN,DIRECT 0.1 mg/dL (0.0-0.3); THYROID STIMULATING HORMONE 2.31 uIU/mL (0.36-3.74); TOTAL PROTEIN, SERUM 6.6 g/dL (6.0-8.3)
[2021-12-16] MEDS ORDERED: FAMOTIDINE 20MG VIAL IV ONE (06:50)
[2021-12-16] MEDS ORDERED: LIDOCAINE PF 100MG/5ML (2%) SYRINGE 5ML ONE (06:54)
[2021-12-16] MEDS ORDERED: PROPOFOL 10 MG/ML 20ML VIAL IV ONE (06:54)
[2021-12-16] MEDS ORDERED: DiphenhydrAMINE HCL 50 MG/ML VIAL ONE (06:54)
[2021-12-16] MEDS ORDERED: MIDAZOLAM HCL 1 MG/ML 2ML VIAL ONE (06:54)
[2021-12-16] MEDS ORDERED: ROCURONIUM 10MG/1ML SYR 10 MG/ML ML ONE (06:55)
[2021-12-16] MEDS ORDERED: SUCCINYLCHOLINE CHLORIDE 20 MG/ML 10 ML VIAL ONE (06:55)
[2021-12-16] MEDS ORDERED: FENTANYL CITRATE PF 50 MCG/1 ML 2ML VIAL ONE (06:55)
[2021-12-16] MEDS ORDERED: NEOSTIGMINE 5MG/5ML SYR IV ONE (06:56)
[2021-12-16] MEDS ORDERED: GLYCOPYRROLATE 1 MG/5 ML SYRINGE ONE (06:56)
[2021-12-16] MEDS ORDERED: ROPIVACAINE 0.5% 5MG/ML 30ML IJ ONE (07:30)
[2021-12-16] MEDS ORDERED: ONDANSETRON 4MG INJ ONE (08:02)
[2021-12-16 08:20] LABS: BASOPHILS % (AUTO) 0.5 % (0.0-5.0); EOSINOPHILS % (AUTO) 2.3 % (0.0-8.0); HEMATOCRIT 32.6 % (36-48); LYMPHOCYTES % (AUTO) 13.7 % (21.0-51.0); MEAN CORPUSCULAR HEMOGLOBIN 33.6 pg (27.0-33.0); MEAN CORPUSCULAR HGB CONC 31.6 g/dL (32.0-36.0); MEAN CORPUSCULAR VOLUME 106.2 fL (79-99); MONOCYTES % (AUTO) 6.6 % (3.0-13.0); NEUTROPHILS % (AUTO) 76.7 % (40.0-77.0); PLATELET COUNT (AUTO) 185 K/uL (130-400); RED BLOOD CELL COUNT(AUTO) 3.07 MIL/uL (4.00-5.50); RED CELL DISTRIBUTION WIDTH 15.3 % (11.0-15.5); WHITE BLOOD COUNT (AUTO) 8.2 K/uL (4.8-10.8)
[2021-12-16 08:34] LABS: INR 1.08 (0.85-1.15); PROTHROMBIN TIME 11.7 SEC (9.6-11.6)
[2021-12-16] MEDS: APIXABAN 2.5 MG TABLET PO SCH ×2 (09:00→19:21)
[2021-12-16] MEDS ORDERED: RYBELSUS PO SCH (09:00)
[2021-12-16 09:08] LABS: ALBUMIN 3.2 g/dL (3.5-5.0); CREATININE 5.8 mg/dL (0.5-1.5); POTASSIUM 4.4 mmol/L (3.5-5.1); TOTAL PROTEIN, SERUM 6.6 g/dL (6.0-8.3)
[2021-12-16] MEDS: Vitamin B Complex/Vit C/Folic Acid PO SCH (10:08)
[2021-12-16] MEDS: FAMOTIDINE 20MG TAB PO SCH (10:08)
[2021-12-16] MEDS: PANTOPRAZOLE 40 MG TAB DR PO SCH (10:08)
[2021-12-16] MEDS: IPRATROPIUM 0.5 MG/2.5 ML INH IH SCH ×3 (11:34→23:18)
[2021-12-16] MEDS: ATORVASTATIN 40 MG TABLET PO SCH (20:22)
[2021-12-16] MEDS: METOPROLOL TARTRATE 50 MG TAB PO SCH (20:23)
[2021-12-17] VITALS (11 sets, daily range): BP systolic 136–155; BP diastolic 60–80
[2021-12-17 03:48] LABS: BASOPHILS % (AUTO) 0.6 % (0.0-5.0); EOSINOPHILS % (AUTO) 2.7 % (0.0-8.0); LYMPHOCYTES % (AUTO) 16.4 % (21.0-51.0); MEAN CORPUSCULAR HEMOGLOBIN 33.1 pg (27.0-33.0); MEAN CORPUSCULAR HGB CONC 31.6 g/dL (32.0-36.0); MEAN CORPUSCULAR VOLUME 104.9 fL (79-99); MONOCYTES % (AUTO) 8.5 % (3.0-13.0); NEUTROPHILS % (AUTO) 71.7 % (40.0-77.0); PLATELET COUNT (AUTO) 184 K/uL (130-400); RED BLOOD CELL COUNT(AUTO) 3.05 MIL/uL (4.00-5.50); RED CELL DISTRIBUTION WIDTH 15.4 % (11.0-15.5); WHITE BLOOD COUNT (AUTO) 7.7 K/uL (4.8-10.8)
[2021-12-17 04:01] LABS: CREATININE 4.2 mg/dL (0.5-1.5); PHOSPHORUS 4.5 mg/dL (2.5-4.9); POTASSIUM 3.9 mmol/L (3.5-5.1)
[2021-12-17 04:03] LABS: INR 1.11 (0.85-1.15)
[2021-12-17 04:04] LABS: PARTIAL THROMBOPLASTIN TIME 33.6 SEC (26.3-35.5)
[2021-12-17] MEDS: IPRATROPIUM 0.5 MG/2.5 ML INH IH SCH ×3 (06:39→23:07)
[2021-12-17] MEDS ORDERED: ENOXAPARIN SODIUM 30 MG/0.3 ML SQ SCH (09:00)
[2021-12-17] MEDS: FOLIC ACID 1 MG TABLET PO SCH (09:08)
[2021-12-17] MEDS: PANTOPRAZOLE 40 MG TAB DR PO SCH (09:08)
[2021-12-17] MEDS: Vitamin B Complex/Vit C/Folic Acid PO SCH (09:08)
[2021-12-17] MEDS: THIAMINE HCL 100 MG TABLET PO SCH (09:08)
[2021-12-17] MEDS: FAMOTIDINE 20MG TAB PO SCH (09:08)
[2021-12-17] MEDS: METOPROLOL TARTRATE 50 MG TAB PO SCH ×2 (11:59→19:59)
[2021-12-17 16:24] LABS: SPECIMENTYPE,BODY FLUID PLEURAL
[2021-12-17 16:25] LABS: APPEARANCE BODY FLUID SLIGHTLY CLOUDY (CLEAR); BODY FLUID WBC 75 /cu. mm.; COLOR,BODY FLUID YELLOW (LT YELLOW); TOTAL VOLUME,BODY FLUID 1500 mL
[2021-12-17 16:26] LABS: BODY FLUID RBC 123 /cu. mm.
[2021-12-17 16:57] LABS: BF LYMPHOCYTE 17 %; BF MONOCYTE 2 %; BF OTHER CELLS 5
[2021-12-17] MEDS: APIXABAN 2.5 MG TABLET PO SCH (19:59)
[2021-12-17] MEDS: ATORVASTATIN 40 MG TABLET PO SCH (20:01)
[2021-12-18] VITALS (23 sets, daily range): BP systolic 90–149; BP diastolic 51–87
[2021-12-18 04:03] LABS: HEMATOCRIT 32.2 % (36-48); MEAN CORPUSCULAR HEMOGLOBIN 33.4 pg (27.0-33.0); MEAN CORPUSCULAR HGB CONC 32.3 g/dL (32.0-36.0); MEAN CORPUSCULAR VOLUME 103.5 fL (79-99); RED BLOOD CELL COUNT(AUTO) 3.11 MIL/uL (4.00-5.50); RED CELL DISTRIBUTION WIDTH 15.1 % (11.0-15.5); WHITE BLOOD COUNT (AUTO) 8.6 K/uL (4.8-10.8)
[2021-12-18 04:16] LABS: CREATININE 5.7 mg/dL (0.5-1.5); POTASSIUM 3.6 mmol/L (3.5-5.1); TOTAL PROTEIN, SERUM 6.1 g/dL (6.0-8.3)
[2021-12-18] MEDS: IPRATROPIUM 0.5 MG/2.5 ML INH IH SCH ×3 (06:19→18:37)
[2021-12-18] MEDS: THIAMINE HCL 100 MG TABLET PO SCH (08:30)
[2021-12-18] MEDS: FAMOTIDINE 20MG TAB PO SCH (08:30)
[2021-12-18] MEDS: FOLIC ACID 1 MG TABLET PO SCH (08:31)
[2021-12-18] MEDS: APIXABAN 2.5 MG TABLET PO SCH ×2 (08:31→20:41)
[2021-12-18] MEDS: PANTOPRAZOLE 40 MG TAB DR PO SCH (08:31)
[2021-12-18] MEDS: Vitamin B Complex/Vit C/Folic Acid PO SCH (08:31)
[2021-12-18] MEDS: METOPROLOL TARTRATE 50 MG TAB PO SCH ×2 (08:33→20:47)
[2021-12-18] MEDS: ATORVASTATIN 40 MG TABLET PO SCH (20:41)
[2021-12-19] MEDS: IPRATROPIUM 0.5 MG/2.5 ML INH IH SCH ×3 (00:21→11:44)
[2021-12-19 03:43] VITALS: BP 126/48
[2021-12-19 08:00] VITALS: BP 127/75
[2021-12-19] MEDS: FOLIC ACID 1 MG TABLET PO SCH (08:36)
[2021-12-19] MEDS: Vitamin B Complex/Vit C/Folic Acid PO SCH (08:36)
[2021-12-19] MEDS: APIXABAN 2.5 MG TABLET PO SCH (08:36)
[2021-12-19] MEDS: PANTOPRAZOLE 40 MG TAB DR PO SCH (08:36)
[2021-12-19] MEDS: METOPROLOL TARTRATE 50 MG TAB PO SCH (08:36)
[2021-12-19] MEDS: THIAMINE HCL 100 MG TABLET PO SCH (08:36)
[2021-12-19] MEDS: FAMOTIDINE 20MG TAB PO SCH (08:37)
[2021-12-19 12:00] VITALS: BP 142/52
== END 2021-12-19 15:00 | disposition home or self-care (01) | DRG 291 ==
LOC: EDH 23:08 → INTOOBSV 12-16 00:37 → OBSVTOIN 12-16 00:37 → EDHIP 12-16 00:37 → 4AH 12-16 05:00
PROVIDERS: ADMIT Internal Medicine; ATTEND Internal Medicine
PROC: 5A09357 Assistance with Respiratory Ventilation, Less than 24 Consecutive Hours, Continuous Positive Airway Pressure (ICD-10-PCS; 2021-12-16)
PROC: 5A1D70Z Performance of Urinary Filtration, Intermittent, Less than 6 Hours Per Day (ICD-10-PCS; 2021-12-16)
PROC: 0W993ZZ Drainage of Right Pleural Cavity, Percutaneous Approach (ICD-10-PCS; principal; 2021-12-17)
PROC: 5A09357 Assistance with Respiratory Ventilation, Less than 24 Consecutive Hours, Continuous Positive Airway Pressure (ICD-10-PCS; 2021-12-17)
PROC: 5A1D70Z Performance of Urinary Filtration, Intermittent, Less than 6 Hours Per Day (ICD-10-PCS; 2021-12-18)
DX: I13.2 Hypertensive heart and chronic kidney disease with heart failure and with stage 5 chronic kidney disease, or end stage renal disease (principal); I50.33 Acute on chronic diastolic (congestive) heart failure; J96.01 Acute respiratory failure with hypoxia; N18.6 End stage renal disease; J91.8 Pleural effusion in other conditions classified elsewhere; I48.91 Unspecified atrial fibrillation; E11.22 Type 2 diabetes mellitus with diabetic chronic kidney disease; E78.5 Hyperlipidemia, unspecified; K21.9 Gastro-esophageal reflux disease without esophagitis; Z79.01 Long term (current) use of anticoagulants; Z90.710 Acquired absence of both cervix and uterus; Z99.2 Dependence on renal dialysis
CPT/HCPCS: 32555; 36415; 36600; 71045; 71250; 80048; 80053; 80076; 82140; 82435; 82550; 82803; 82945; 82947; 82948; 83605; 83615; 83735; 83874; 83880; 83986; 84100; 84132; 84155; 84157; 84295; 84443; 84484; 85018; 85025; 85027; 85610; 85730; 86704; 86706; 87071; 87116; 87205; 87206; 87340; 89051; 90935; 93005; 94640; 94660; 94664; 97039; 99291; C1729; G0378; J0330; J1200; J1940; J2001; J2250; J2405; J2704; J2710; J2795; J3010; J3490

== ENCOUNTER → 2022-07-24 | Outpatient (CLI) | payer OTHER ==
[~2022-07-24] MED LIST changes: +AMOX-426 PO; +CLON0.1T2 PO; +DILT-116 PO; -DILT180C89 PO; +FLUT16H EN; +FOLI0.8T22 PO; +NITR0.4T50 SL
== END | disposition home or self-care (01) ==
LOC: SHCH 10:22
PROVIDERS: ATTEND Internal Medicine Cardiovascular Disease
DX: I08.1 Rheumatic disorders of both mitral and tricuspid valves (principal); I27.20 Pulmonary hypertension, unspecified; I48.0 Paroxysmal atrial fibrillation; I11.9 Hypertensive heart disease without heart failure; E11.9 Type 2 diabetes mellitus without complications; E78.5 Hyperlipidemia, unspecified
CPT/HCPCS: 93306

== ENCOUNTER 2022-12-14 14:41 | Inpatient (IN) | payer OTHER ==
[~2022-12-14] VITALS: Ht 152.4 cm; Wt 54.2 kg
[~2022-12-14 14:41] MED LIST changes: -AMOX-426 PO; +ASPI-1005 PO; +AURYXIA PO; +CLIN-141 PO; -CLON0.1T2 PO; -DILT-116 PO; +DILT180C63 PO; -DOCU100C33 PO; +FERR210T PO; -METO100T14 PO; +METO50TA18 PO; -ONDA-104 PO; -SEMA14TA2 PO
[2022-12-14 15:23] LABS: BASOPHILS # (AUTO) 0.03 K/uL (0.00-0.20); BASOPHILS % (AUTO) 0.3 % (0.0-5.0); EOSINOPHILS % (AUTO) 1.9 % (0.0-8.0); HEMATOCRIT 27.1 % (36-48); IMMATURE GRANULOCYTE ABSOLUTE 0.05 K/uL (0-1); LYMPHOCYTES # (AUTO) 0.8 K/uL (1.0-4.8); LYMPHOCYTES % (AUTO) 7.7 % (21.0-51.0); MEAN CORPUSCULAR HEMOGLOBIN 34.5 pg (27.0-33.0); MEAN CORPUSCULAR HGB CONC 32.1 g/dL (32.0-36.0); MEAN CORPUSCULAR VOLUME 107.5 fL (79-99); MONOCYTES # (AUTO) 0.7 K/uL (0.1-1.0); MONOCYTES % (AUTO) 6.3 % (3.0-13.0); NEUTROPHILS # (AUTO) 8.7 K/uL (1.8-7.7); NEUTROPHILS % (AUTO) 83.3 % (40.0-77.0); PLATELET COUNT (AUTO) 220 K/uL (130-400); RED BLOOD CELL COUNT(AUTO) 2.52 MIL/uL (4.00-5.50); RED CELL DISTRIBUTION WIDTH 15.3 % (11.0-15.5); WHITE BLOOD COUNT (AUTO) 10.4 K/uL (4.8-10.8)
[2022-12-14 15:37] LABS: INR 0.99 (0.85-1.15); PROTHROMBIN TIME 11.5 SEC (9.6-11.6)
[2022-12-14 15:40] LABS: B-TYPE NATRIURETIC PEPTIDE 1960 pg/mL (0-100)
[2022-12-14 15:57] LABS: CREATININE 5.6 mg/dL (0.5-1.5); POTASSIUM 4.1 mmol/L (3.5-5.1)
[2022-12-14 16:08] LABS: BILIRUBIN,TOTAL 0.3 mg/dL (0.2-1.0); TOTAL PROTEIN, SERUM 6.6 g/dL (6.0-8.3)
[2022-12-14] MEDS ORDERED: IPRATROPIUM/ALBUTEROL SULFATE 3 ML SOLUTION IH ONE ×2 (18:00→22:50)
[2022-12-14 19:17] VITALS: PULSE 88; RESP 16
[2022-12-14] MEDS ORDERED: ACETAMINOPHEN 325 MG TAB PO PRN ×2 (20:00)
[2022-12-14] MEDS ORDERED: HYDROCODONE/ACETAMINOPHEN 5/325 MG TAB PO PRN (20:00)
[2022-12-14] MEDS ORDERED: MAG/ALUM/SIMETH 30 ML UDCUP PO PRN (20:00)
[2022-12-14] MEDS ORDERED: ONDANSETRON 4MG INJ IV PRN (20:00)
[2022-12-14] MEDS ORDERED: GUAIFENESIN-DM 200/20 MG 10 ML PO PRN (20:00)
[2022-12-14] MEDS ORDERED: DiphenhydrAMINE HCL 50 MG/ML VIAL IV PRN (20:00)
[2022-12-14] MEDS ORDERED: ALBUTEROL 0.083% 2.5 MG/3 ML INH IH PRN (20:00)
[2022-12-14] MEDS ORDERED: LACTULOSE 20 GM/30 ML UDCUP PO PRN (20:00)
[2022-12-14] MEDS ORDERED: KETOROLAC 15MG/ML VIAL (15MG/ML) IV PRN (20:00)
[2022-12-14] MEDS ORDERED: ZOLPIDEM TARTRATE 5 MG TAB PO PRN (20:00)
[2022-12-14] MEDS ORDERED: HYDRALAZINE 20MG/ML VIAL IV PRN (20:00)
[2022-12-14 20:26] VITALS: PULSE 96; RESP 14; O2SAT 99
[2022-12-14] MEDS ORDERED: FAMOTIDINE 20MG VIAL IV SCH (21:00)
[2022-12-14 21:35] VITALS: PULSE 100; RESP 30
[2022-12-14 21:46] VITALS: PULSE 110; RESP 35; O2SAT 100
[2022-12-14 21:58] LABS: ABG BASE EXCESS -1.7 mmol/L (-2.0-3.0); ABG HCO3 24.5 mmol/L (21.0-28.0); ABG OXYGEN SATURATION 95.9 % (95.0-99.0); ABG PCO2 48 mmHg (32-45); ABG PH 7.323 (7.35-7.450); CARBON MONOXIDE 0.2; DEVICE COMMENT LR; HHb 4.1; PO2, ARTERIAL BG 83.9 mmHg (83.0-108.0)
[2022-12-14] MEDS: HEPARIN 5,000 UNIT VIAL SQ SCH (22:43)
[2022-12-14] MEDS: FAMOTIDINE 20MG VIAL IV SCH (22:44)
[2022-12-14] MEDS: IPRATROPIUM/ALBUTEROL SULFATE 3 ML SOLUTION IH SCH (23:45)
[2022-12-14 23:48] VITALS: PULSE 97
[2022-12-15] VITALS (33 sets, daily range): BP systolic 73–142; BP diastolic 53–93; PULSE 72–137; RESP 20–42; TEMP 97.3; O2SAT 95–100
[2022-12-15] MEDS ORDERED: FUROSEMIDE 40MG VIAL IV ONE (00:30)
[2022-12-15] MEDS ORDERED: SEMA14TA2 PO (02:36)
[2022-12-15] MEDS ORDERED: DILT180C77 PO (02:36)
[2022-12-15] MEDS ORDERED: ONDA-104 PO (02:37)
[2022-12-15] MEDS ORDERED: METO100T14 PO (02:39)
[2022-12-15 03:52] LABS: BASOPHILS # (AUTO) 0.05 K/uL (0.00-0.20); BASOPHILS % (AUTO) 0.4 % (0.0-5.0); EOSINOPHILS # (AUTO) 0.15 K/uL (0.00-0.70); EOSINOPHILS % (AUTO) 1.2 % (0.0-8.0); HEMATOCRIT 27.6 % (36-48); IMMATURE GRANULOCYTE ABSOLUTE 0.06 K/uL (0-1); LYMPHOCYTES % (AUTO) 7.8 % (21.0-51.0); MEAN CORPUSCULAR HGB CONC 31.5 g/dL (32.0-36.0); MEAN CORPUSCULAR VOLUME 107.8 fL (79-99); MONOCYTES # (AUTO) 0.8 K/uL (0.1-1.0); MONOCYTES % (AUTO) 6.4 % (3.0-13.0); NEUTROPHILS # (AUTO) 10.6 K/uL (1.8-7.7); NEUTROPHILS % (AUTO) 83.7 % (40.0-77.0); PLATELET COUNT (AUTO) 225 K/uL (130-400); RED BLOOD CELL COUNT(AUTO) 2.56 MIL/uL (4.00-5.50); RED CELL DISTRIBUTION WIDTH 15.4 % (11.0-15.5); WHITE BLOOD COUNT (AUTO) 12.7 K/uL (4.8-10.8)
[2022-12-15 04:11] LABS: HEMOGLOBIN A1C 5.1 % (4.0-6.0)
[2022-12-15 04:18] LABS: ALBUMIN 3.1 g/dL (3.5-5.0); BILIRUBIN,TOTAL 0.3 mg/dL (0.2-1.0); CREATININE 6.2 mg/dL (0.5-1.5); MAGNESIUM 2.2 mg/dL (1.80-2.40); POTASSIUM 4.5 mmol/L (3.5-5.1); TOTAL PROTEIN, SERUM 6.7 g/dL (6.0-8.3)
[2022-12-15] MEDS: IPRATROPIUM/ALBUTEROL SULFATE 3 ML SOLUTION IH SCH ×2 (06:43→12:00)
[2022-12-15] MEDS: HEPARIN 5,000 UNIT VIAL SQ SCH ×3 (08:07→20:43)
[2022-12-15 08:24] LABS: ABG BASE EXCESS -2.3 mmol/L (-2.0-3.0); ABG HCO3 23.6 mmol/L (21.0-28.0); ABG OXYGEN SATURATION 95.8 % (95.0-99.0); ABG PCO2 45 mmHg (32-45); PO2, ARTERIAL BG 84.5 mmHg (83.0-108.0); VENT MODE, BG BIPAP 10-5 (ROOM AIR)
[2022-12-15] MEDS ORDERED: IOHEXOL-350 75 ML VIAL IV ONE (09:16)
[2022-12-15] MEDS ORDERED: PHARMACY COMMUNICATION MISC SCH (10:30)
[2022-12-15] MEDS ORDERED: METOPROLOL TARTRATE 1 MG/ML 5ML VIAL IV PRN (11:30)
[2022-12-15] MEDS ORDERED: METOPROLOL TARTRATE 1 MG/ML 5ML VIAL IV ONE (11:32)
[2022-12-15 16:17] LABS: HEPATITIS B SURFACE ANTIGEN Non-Reactive (Nonreactive)
[2022-12-15] MEDS: EPOETIN ALFA-EPBX (NON-ESRD) 10,000 UNIT/ML VIAL SQ SCH (17:16)
[2022-12-15] MEDS: IPRATROPIUM 0.5 MG/2.5 ML INH IH SCH ×2 (18:50→23:12)
[2022-12-15] MEDS ORDERED: METOPROLOL TARTRATE 50 MG PO SCH (21:00)
[2022-12-15] MEDS: METOPROLOL TARTRATE 50 MG TAB PO SCH (21:17)
[2022-12-15] MEDS: BALSAM PERU/CASTOR OIL 60 GM TUBE TP SCH (21:47)
[2022-12-16] VITALS (23 sets, daily range): BP systolic 106–132; BP diastolic 55–84; PULSE 84–108; RESP 16–33; O2SAT 98–100
[2022-12-16 03:54] LABS: BASOPHILS # (AUTO) 0.03 K/uL (0.00-0.20); BASOPHILS % (AUTO) 0.4 % (0.0-5.0); EOSINOPHILS # (AUTO) 0.28 K/uL (0.00-0.70); EOSINOPHILS % (AUTO) 3.5 % (0.0-8.0); HEMATOCRIT 26.8 % (36-48); IMMATURE GRANULOCYTE ABSOLUTE 0.03 K/uL (0-1); LYMPHOCYTES # (AUTO) 0.7 K/uL (1.0-4.8); LYMPHOCYTES % (AUTO) 8.4 % (21.0-51.0); MEAN CORPUSCULAR HEMOGLOBIN 33.9 pg (27.0-33.0); MEAN CORPUSCULAR HGB CONC 31.7 g/dL (32.0-36.0); MEAN CORPUSCULAR VOLUME 106.8 fL (79-99); MONOCYTES # (AUTO) 0.5 K/uL (0.1-1.0); MONOCYTES % (AUTO) 6.8 % (3.0-13.0); NEUTROPHILS # (AUTO) 6.4 K/uL (1.8-7.7); NEUTROPHILS % (AUTO) 80.5 % (40.0-77.0); PLATELET COUNT (AUTO) 152 K/uL (130-400); RED BLOOD CELL COUNT(AUTO) 2.51 MIL/uL (4.00-5.50); RED CELL DISTRIBUTION WIDTH 15.6 % (11.0-15.5)
[2022-12-16 04:04] LABS: ALBUMIN 2.7 g/dL (3.5-5.0); CREATININE 5.2 mg/dL (0.5-1.5); POTASSIUM 4.1 mmol/L (3.5-5.1)
[2022-12-16] MEDS: IPRATROPIUM 0.5 MG/2.5 ML INH IH SCH ×4 (07:18→23:30)
[2022-12-16] MEDS: HEPARIN 5,000 UNIT VIAL SQ SCH ×3 (07:36→21:00)
[2022-12-16] MEDS: FAMOTIDINE 20MG VIAL IV SCH (08:39)
[2022-12-16] MEDS: METOPROLOL TARTRATE 50 MG TAB PO SCH ×2 (08:39→21:57)
[2022-12-16] MEDS: BALSAM PERU/CASTOR OIL 60 GM TUBE TP SCH ×2 (08:41→22:49)
[2022-12-16 13:43] LABS: GLUCOSE PLEURAL FLUID 114; PROTEIN PLEURAL FLUID 2.1 mg/dL
[2022-12-16 14:09] LABS: APPEARANCE BODY FLUID SLIGHTLY CLOUDY (CLEAR); COLOR,BODY FLUID YELLOW (LT YELLOW); SPECIMENTYPE,BODY FLUID PLEURAL; TOTAL VOLUME,BODY FLUID 2000 mL
[2022-12-16 14:27] LABS: BODY FLUID RBC 230 /cu. mm.; BODY FLUID WBC 140 /cu. mm.
[2022-12-16 16:00] LABS: BF LYMPHOCYTE 20 %; BF MACROPHAGE 51; BF OTHER CELLS 1; BF TOTAL CELLS COUNTED 100
[2022-12-16 16:07] LABS: PH PLEURAL FLUID 7
[2022-12-17] VITALS (35 sets, daily range): BP systolic 97–168; BP diastolic 51–86; PULSE 64–129; RESP 16–22; TEMP 97.2–97.5; O2SAT 98–100
[2022-12-17 03:33] LABS: BASOPHILS # (AUTO) 0.02 K/uL (0.00-0.20); BASOPHILS % (AUTO) 0.2 % (0.0-5.0); EOSINOPHILS # (AUTO) 0.32 K/uL (0.00-0.70); EOSINOPHILS % (AUTO) 3.7 % (0.0-8.0); IMMATURE GRANULOCYTE ABSOLUTE 0.02 K/uL (0-1); LYMPHOCYTES # (AUTO) 0.8 K/uL (1.0-4.8); LYMPHOCYTES % (AUTO) 9.5 % (21.0-51.0); MEAN CORPUSCULAR HGB CONC 31.5 g/dL (32.0-36.0); MEAN CORPUSCULAR VOLUME 107.9 fL (79-99); MONOCYTES # (AUTO) 0.6 K/uL (0.1-1.0); MONOCYTES % (AUTO) 6.5 % (3.0-13.0); NEUTROPHILS # (AUTO) 6.9 K/uL (1.8-7.7); NEUTROPHILS % (AUTO) 79.9 % (40.0-77.0); PLATELET COUNT (AUTO) 159 K/uL (130-400); RED BLOOD CELL COUNT(AUTO) 2.41 MIL/uL (4.00-5.50); RED CELL DISTRIBUTION WIDTH 15.7 % (11.0-15.5); WHITE BLOOD COUNT (AUTO) 8.6 K/uL (4.8-10.8)
[2022-12-17 03:44] LABS: CREATININE 6.7 mg/dL (0.5-1.5); POTASSIUM 4.2 mmol/L (3.5-5.1)
[2022-12-17] MEDS: IPRATROPIUM 0.5 MG/2.5 ML INH IH SCH ×3 (07:02→19:18)
[2022-12-17] MEDS: HEPARIN 5,000 UNIT VIAL SQ SCH ×3 (08:57→20:28)
[2022-12-17] MEDS: METOPROLOL TARTRATE 50 MG TAB PO SCH ×2 (08:59→20:27)
[2022-12-17] MEDS: BALSAM PERU/CASTOR OIL 60 GM TUBE TP SCH ×2 (09:00→20:30)
[2022-12-17] MEDS: FAMOTIDINE 20MG VIAL IV SCH (09:00)
[2022-12-17] MEDS: EPOETIN ALFA-EPBX (NON-ESRD) 10,000 UNIT/ML VIAL SQ SCH (09:07)
[2022-12-18] VITALS (15 sets, daily range): BP systolic 115–154; BP diastolic 55–80; PULSE 90–123; RESP 18–23; O2SAT 99–100
[2022-12-18 04:05] LABS: BASOPHILS # (AUTO) 0.02 K/uL (0.00-0.20); BASOPHILS % (AUTO) 0.3 % (0.0-5.0); EOSINOPHILS # (AUTO) 0.34 K/uL (0.00-0.70); EOSINOPHILS % (AUTO) 5.1 % (0.0-8.0); HEMATOCRIT 25.7 % (36-48); IMMATURE GRANULOCYTE ABSOLUTE 0.02 K/uL (0-1); LYMPHOCYTES # (AUTO) 0.6 K/uL (1.0-4.8); LYMPHOCYTES % (AUTO) 8.8 % (21.0-51.0); MEAN CORPUSCULAR HEMOGLOBIN 33.7 pg (27.0-33.0); MEAN CORPUSCULAR HGB CONC 31.9 g/dL (32.0-36.0); MEAN CORPUSCULAR VOLUME 105.8 fL (79-99); MONOCYTES # (AUTO) 0.5 K/uL (0.1-1.0); MONOCYTES % (AUTO) 7.9 % (3.0-13.0); NEUTROPHILS # (AUTO) 5.2 K/uL (1.8-7.7); NEUTROPHILS % (AUTO) 77.6 % (40.0-77.0); PLATELET COUNT (AUTO) 151 K/uL (130-400); RED BLOOD CELL COUNT(AUTO) 2.43 MIL/uL (4.00-5.50); RED CELL DISTRIBUTION WIDTH 15.3 % (11.0-15.5); WHITE BLOOD COUNT (AUTO) 6.7 K/uL (4.8-10.8)
[2022-12-18 04:30] LABS: CREATININE 3.9 mg/dL (0.5-1.5); POTASSIUM 3.2 mmol/L (3.5-5.1); THYROID STIMULATING HORMONE 1.72 uIU/mL (0.36-3.74)
[2022-12-18] MEDS: IPRATROPIUM 0.5 MG/2.5 ML INH IH SCH ×5 (04:33→23:09)
[2022-12-18] MEDS ORDERED: KCL 20 MEQ ERTAB PO ONE (09:30)
[2022-12-18] MEDS: FAMOTIDINE 20MG VIAL IV SCH (09:36)
[2022-12-18] MEDS: METOPROLOL TARTRATE 50 MG TAB PO SCH ×2 (09:37→20:41)
[2022-12-18] MEDS: BALSAM PERU/CASTOR OIL 60 GM TUBE TP SCH ×2 (09:37→20:42)
[2022-12-18] MEDS: HEPARIN 5,000 UNIT VIAL SQ SCH ×3 (09:40→20:41)
[2022-12-18] MEDS: NITROGLYCERIN 0.4 MG SL TAB SL PRN ×2 (23:52→23:58)
[2022-12-19] VITALS (33 sets, daily range): BP systolic 72–139; BP diastolic 52–82; PULSE 81–134; RESP 18–20; TEMP 97.9–98.1; O2SAT 98–100
[2022-12-19] MEDS: IPRATROPIUM 0.5 MG/2.5 ML INH IH SCH ×4 (08:05→23:47)
[2022-12-19] MEDS: HEPARIN 5,000 UNIT VIAL SQ SCH ×3 (14:00→20:36)
[2022-12-19] MEDS ORDERED: PHARMACY COMMUNICATION MISC SCH (14:30)
[2022-12-19] MEDS: EPOETIN ALFA-EPBX (NON-ESRD) 10,000 UNIT/ML VIAL SQ SCH (15:18)
[2022-12-19] MEDS: BALSAM PERU/CASTOR OIL 60 GM TUBE TP SCH ×2 (15:19→20:33)
[2022-12-19] MEDS: METOPROLOL TARTRATE 50 MG TAB PO SCH ×2 (15:21→20:33)
[2022-12-19] MEDS: MIDODRINE HCL 5 MG TABLET PO SCH (20:33)
[2022-12-20 06:47] VITALS: PULSE 95
[2022-12-20] MEDS: FAMOTIDINE 20MG VIAL IV SCH (09:00)
[2022-12-20] MEDS ORDERED: METOPROLOL TARTRATE 25 MG TAB ONE (15:41)
[2022-12-20 19:05] VITALS: PULSE 92; RESP 18
[2022-12-20 20:30] VITALS: O2SAT 97
[2022-12-20] MEDS: MIDODRINE HCL 5 MG TABLET PO SCH (21:00)
[2022-12-20] MEDS: BALSAM PERU/CASTOR OIL 60 GM TUBE TP SCH (21:00)
[2022-12-20] MEDS: METOPROLOL TARTRATE 50 MG TAB PO SCH (21:00)
[2022-12-20] MEDS: HEPARIN 5,000 UNIT VIAL SQ SCH (21:00)
[2022-12-20 23:10] VITALS: PULSE 95; RESP 18
[2022-12-21] VITALS (12 sets, daily range): BP systolic 110–124; BP diastolic 44–89; PULSE 68–88; RESP 16–20; O2SAT 96–100
[2022-12-21] MEDS: METOPROLOL TARTRATE 25 MG TAB PO SCH ×3 (03:42→20:42)
[2022-12-21 04:28] LABS: BASOPHILS # (AUTO) 0.04 K/uL (0.00-0.20); BASOPHILS % (AUTO) 0.6 % (0.0-5.0); EOSINOPHILS # (AUTO) 0.48 K/uL (0.00-0.70); EOSINOPHILS % (AUTO) 6.7 % (0.0-8.0); IMMATURE GRANULOCYTE ABSOLUTE 0.04 K/uL (0-1); LYMPHOCYTES % (AUTO) 13.5 % (21.0-51.0); MEAN CORPUSCULAR HEMOGLOBIN 33.6 pg (27.0-33.0); MEAN CORPUSCULAR HGB CONC 31.5 g/dL (32.0-36.0); MEAN CORPUSCULAR VOLUME 106.7 fL (79-99); MONOCYTES # (AUTO) 0.8 K/uL (0.1-1.0); MONOCYTES % (AUTO) 10.8 % (3.0-13.0); NEUTROPHILS # (AUTO) 4.8 K/uL (1.8-7.7); NEUTROPHILS % (AUTO) 67.8 % (40.0-77.0); PLATELET COUNT (AUTO) 180 K/uL (130-400); RED BLOOD CELL COUNT(AUTO) 2.53 MIL/uL (4.00-5.50); RED CELL DISTRIBUTION WIDTH 15.4 % (11.0-15.5); WHITE BLOOD COUNT (AUTO) 7.1 K/uL (4.8-10.8)
[2022-12-21 06:21] LABS: ALBUMIN 2.3 g/dL (3.5-5.0); BILIRUBIN,TOTAL 0.3 mg/dL (0.2-1.0); CREATININE 5.7 mg/dL (0.5-1.5); POTASSIUM 3.7 mmol/L (3.5-5.1); TOTAL PROTEIN, SERUM 5.8 g/dL (6.0-8.3)
[2022-12-21] MEDS: IPRATROPIUM 0.5 MG/2.5 ML INH IH SCH ×4 (06:42→23:39)
[2022-12-21] MEDS ORDERED: PHARMACY COMMUNICATION MISC SCH (07:00)
[2022-12-21] MEDS ORDERED: HONEY 1 APPL/ML TUBE TP ONE ×2 (07:45→09:00)
[2022-12-21] MEDS: MIDODRINE HCL 5 MG TABLET PO SCH ×3 (08:48→20:42)
[2022-12-21] MEDS: BALSAM PERU/CASTOR OIL 60 GM TUBE TP SCH ×2 (08:51→20:53)
[2022-12-21] MEDS: HEPARIN 5,000 UNIT VIAL SQ SCH ×3 (08:52→20:52)
[2022-12-22] VITALS (10 sets, daily range): BP systolic 111–137; BP diastolic 56–77; PULSE 77–154; RESP 16–24; O2SAT 88–100
[2022-12-22] MEDS: IPRATROPIUM 0.5 MG/2.5 ML INH IH SCH ×2 (06:44→11:01)
[2022-12-22] MEDS: FAMOTIDINE 20MG VIAL IV SCH (09:27)
[2022-12-22] MEDS: MIDODRINE HCL 5 MG TABLET PO SCH ×2 (09:27→13:58)
[2022-12-22] MEDS: HEPARIN 5,000 UNIT VIAL SQ SCH ×2 (09:28→14:02)
[2022-12-22] MEDS: BALSAM PERU/CASTOR OIL 60 GM TUBE TP SCH (11:36)
[2022-12-22] MEDS: EPOETIN ALFA-EPBX (NON-ESRD) 10,000 UNIT/ML VIAL SQ SCH (11:36)
[2022-12-22] MEDS: METOPROLOL TARTRATE 25 MG TAB PO SCH (13:58)
== END 2022-12-22 18:06 | disposition home or self-care (01) | DRG 291 ==
LOC: EDH 14:41 → OBSVTOIN 19:46 → EDHIP 19:46 → 2AH 12-15 00:21
PROVIDERS: ADMIT Internal Medicine Critical Care Medicine; ATTEND Internal Medicine Critical Care Medicine
PROC: 5A09357 Assistance with Respiratory Ventilation, Less than 24 Consecutive Hours, Continuous Positive Airway Pressure (ICD-10-PCS; 2022-12-14)
PROC: 5A1D70Z Performance of Urinary Filtration, Intermittent, Less than 6 Hours Per Day (ICD-10-PCS; 2022-12-15)
PROC: 5A09357 Assistance with Respiratory Ventilation, Less than 24 Consecutive Hours, Continuous Positive Airway Pressure (ICD-10-PCS; 2022-12-15)
PROC: 0W993ZZ Drainage of Right Pleural Cavity, Percutaneous Approach (ICD-10-PCS; 2022-12-16)
PROC: 5A09357 Assistance with Respiratory Ventilation, Less than 24 Consecutive Hours, Continuous Positive Airway Pressure (ICD-10-PCS; 2022-12-16)
PROC: 0W9B3ZZ Drainage of Left Pleural Cavity, Percutaneous Approach (ICD-10-PCS; principal; 2022-12-17)
PROC: 5A1D70Z Performance of Urinary Filtration, Intermittent, Less than 6 Hours Per Day (ICD-10-PCS; 2022-12-17)
PROC: 5A09357 Assistance with Respiratory Ventilation, Less than 24 Consecutive Hours, Continuous Positive Airway Pressure (ICD-10-PCS; 2022-12-17)
PROC: 5A09357 Assistance with Respiratory Ventilation, Less than 24 Consecutive Hours, Continuous Positive Airway Pressure (ICD-10-PCS; 2022-12-18)
PROC: 5A1D70Z Performance of Urinary Filtration, Intermittent, Less than 6 Hours Per Day (ICD-10-PCS; 2022-12-19)
DX: I13.2 Hypertensive heart and chronic kidney disease with heart failure and with stage 5 chronic kidney disease, or end stage renal disease (principal); I50.33 Acute on chronic diastolic (congestive) heart failure; J96.21 Acute and chronic respiratory failure with hypoxia; N18.6 End stage renal disease; J91.8 Pleural effusion in other conditions classified elsewhere; E11.22 Type 2 diabetes mellitus with diabetic chronic kidney disease; I25.10 Atherosclerotic heart disease of native coronary artery without angina pectoris; I48.91 Unspecified atrial fibrillation; J44.9 Chronic obstructive pulmonary disease, unspecified; K21.9 Gastro-esophageal reflux disease without esophagitis; Z79.01 Long term (current) use of anticoagulants; Z99.2 Dependence on renal dialysis; I25.2 Old myocardial infarction; Z90.710 Acquired absence of both cervix and uterus; Z95.0 Presence of cardiac pacemaker
CPT/HCPCS: 32555; 36415; 36600; 71045; 71250; 71270; 80048; 80053; 82040; 82140; 82435; 82550; 82803; 82945; 82947; 82948; 83036; 83605; 83615; 83735; 83880; 83986; 84100; 84132; 84145; 84157; 84295; 84443; 84484; 85018; 85025; 85378; 85610; 86704; 86706; 87071; 87205; 87340; 88108; 89051; 90935; 93005; 93970; 94640; 94660; 94664; 94760; 97039; C1729; G0378; J1644; J1940; J3490; Q9967; Q5106

== ENCOUNTER → 2022-12-25 | Outpatient (CLI) | payer OTHER ==
[~2022-12-25] MED LIST changes: +DILT180C77 PO; +METO100T14 PO; +ONDA-104 PO; +SEMA14TA2 PO
== END | disposition home or self-care (01) ==
LOC: RAH 07:30
PROVIDERS: ATTEND Nurse Practitioner Acute Care
DX: J90 Pleural effusion, not elsewhere classified (principal)
CPT/HCPCS: 32555; 71045; C1729

== ENCOUNTER → 2023-01-04 | Outpatient (CLI) | payer OTHER ==
[~2023-01-04] MED LIST changes: -ASPI-1005 PO; -CLIN-141 PO; -CLON0.1T PO; -FERR210T PO; -FOLI0.8T22 PO; -METO50TA18 PO; +MUPI22OI2 TP; +PETR1BAN16 TP; +POLY1BAN TP; +[UNRECOGNIZED DRUG - CODE] TP; +[UNRECOGNIZED DRUG - CODE] TP
== END | disposition home or self-care (01) ==
LOC: WHH 10:36
PROVIDERS: ATTEND Nurse Practitioner Family
DX: S51.012A Laceration without foreign body of left elbow, initial encounter (principal); S51.812A Laceration without foreign body of left forearm, initial encounter; S81.812A Laceration without foreign body, left lower leg, initial encounter; E11.22 Type 2 diabetes mellitus with diabetic chronic kidney disease; I12.0 Hypertensive chronic kidney disease with stage 5 chronic kidney disease or end stage renal disease; N18.6 End stage renal disease; I48.91 Unspecified atrial fibrillation; I25.10 Atherosclerotic heart disease of native coronary artery without angina pectoris; I25.2 Old myocardial infarction; J44.9 Chronic obstructive pulmonary disease, unspecified; Z99.2 Dependence on renal dialysis; K21.9 Gastro-esophageal reflux disease without esophagitis; Z95.810 Presence of automatic (implantable) cardiac defibrillator; Z79.01 Long term (current) use of anticoagulants; Z90.49 Acquired absence of other specified parts of digestive tract; Z90.710 Acquired absence of both cervix and uterus; Z79.899 Other long term (current) drug therapy; W19.XXXA Unspecified fall, initial encounter; Y93.89 Activity, other specified; Y92.89 Other specified places as the place of occurrence of the external cause; Y99.8 Other external cause status
CPT/HCPCS: G0463; A6248; A6021; A6209; A4450

== ENCOUNTER → 2023-01-08 | Outpatient (CLI) | payer OTHER | END | disposition home or self-care (01) | LOC: RAH 07:51 | PROVIDERS: ATTEND Nurse Practitioner Acute Care | DX: J90 Pleural effusion, not elsewhere classified (principal); Z79.01 Long term (current) use of anticoagulants | CPT/HCPCS: 32555; 71045; C1729 ==

== ENCOUNTER → 2023-01-12 | Outpatient (CLI) | payer OTHER | END | disposition home or self-care (01) | LOC: WHH 13:05 | PROVIDERS: ATTEND Nurse Practitioner Family | DX: S51.812D Laceration without foreign body of left forearm, subsequent encounter (principal); S51.012D Laceration without foreign body of left elbow, subsequent encounter; S81.812D Laceration without foreign body, left lower leg, subsequent encounter; E11.22 Type 2 diabetes mellitus with diabetic chronic kidney disease; I12.0 Hypertensive chronic kidney disease with stage 5 chronic kidney disease or end stage renal disease; N18.6 End stage renal disease; I48.91 Unspecified atrial fibrillation; I25.10 Atherosclerotic heart disease of native coronary artery without angina pectoris; I25.2 Old myocardial infarction; J44.9 Chronic obstructive pulmonary disease, unspecified; K21.9 Gastro-esophageal reflux disease without esophagitis; Z99.2 Dependence on renal dialysis; Z95.810 Presence of automatic (implantable) cardiac defibrillator; Z79.01 Long term (current) use of anticoagulants; Z90.49 Acquired absence of other specified parts of digestive tract; Z90.710 Acquired absence of both cervix and uterus; Z79.899 Other long term (current) drug therapy; W19.XXXD Unspecified fall, subsequent encounter | CPT/HCPCS: 11042; 11045; A6209; A6022; A4450 ==

== ENCOUNTER → 2023-01-15 | Outpatient (CLI) | payer OTHER | END | disposition home or self-care (01) | LOC: RAH 07:26 | PROVIDERS: ATTEND Nurse Practitioner Acute Care | DX: J90 Pleural effusion, not elsewhere classified (principal) | CPT/HCPCS: 32555; 71045; C1729 ==

== ENCOUNTER → 2023-01-18 | Outpatient (CLI) | payer OTHER ==
[~2023-01-18] MED LIST changes: +LIDOCAINE HCL 4% LTA SOL 4 ML VIAL TP ONE
== END | disposition home or self-care (01) ==
LOC: WHH 09:35
PROVIDERS: ATTEND Nurse Practitioner Family
DX: S51.812D Laceration without foreign body of left forearm, subsequent encounter (principal); S51.002D Unspecified open wound of left elbow, subsequent encounter; S81.802D Unspecified open wound, left lower leg, subsequent encounter; E11.22 Type 2 diabetes mellitus with diabetic chronic kidney disease; I12.0 Hypertensive chronic kidney disease with stage 5 chronic kidney disease or end stage renal disease; N18.6 End stage renal disease; I48.91 Unspecified atrial fibrillation; I25.10 Atherosclerotic heart disease of native coronary artery without angina pectoris; I25.2 Old myocardial infarction; J44.9 Chronic obstructive pulmonary disease, unspecified; K21.9 Gastro-esophageal reflux disease without esophagitis; Z99.2 Dependence on renal dialysis; Z95.810 Presence of automatic (implantable) cardiac defibrillator; Z79.01 Long term (current) use of anticoagulants; Z90.49 Acquired absence of other specified parts of digestive tract; Z90.710 Acquired absence of both cervix and uterus; Z79.899 Other long term (current) drug therapy; W19.XXXD Unspecified fall, subsequent encounter
CPT/HCPCS: G0463; A4450

== ENCOUNTER 2023-01-21 10:28 | Observation (INO) | payer OTHER ==
[~2023-01-21] VITALS: Ht 152.4 cm; Wt 52.0 kg
[~2023-01-21 10:28] MED LIST changes: -LIDOCAINE HCL 4% LTA SOL 4 ML VIAL TP ONE
[2023-01-21 10:56] LABS: BASOPHILS # (AUTO) 0.05 K/uL (0.00-0.20); BASOPHILS % (AUTO) 0.6 % (0.0-5.0); EOSINOPHILS # (AUTO) 0.16 K/uL (0.00-0.70); HEMATOCRIT 33.3 % (36-48); IMMATURE GRANULOCYTE ABSOLUTE 0.02 K/uL (0-1); LYMPHOCYTES # (AUTO) 0.9 K/uL (1.0-4.8); LYMPHOCYTES % (AUTO) 10.7 % (21.0-51.0); MEAN CORPUSCULAR HEMOGLOBIN 33.4 pg (27.0-33.0); MEAN CORPUSCULAR HGB CONC 31.5 g/dL (32.0-36.0); MEAN CORPUSCULAR VOLUME 106.1 fL (79-99); MONOCYTES # (AUTO) 0.6 K/uL (0.1-1.0); MONOCYTES % (AUTO) 6.9 % (3.0-13.0); NEUTROPHILS # (AUTO) 6.3 K/uL (1.8-7.7); NEUTROPHILS % (AUTO) 79.5 % (40.0-77.0); PLATELET COUNT (AUTO) 197 K/uL (130-400); RED BLOOD CELL COUNT(AUTO) 3.14 MIL/uL (4.00-5.50); RED CELL DISTRIBUTION WIDTH 15.7 % (11.0-15.5)
[2023-01-21 11:17] LABS: ALBUMIN 2.8 g/dL (3.5-5.0); BILIRUBIN,TOTAL 0.4 mg/dL (0.2-1.0); CREATININE 2.2 mg/dL (0.5-1.5); TOTAL PROTEIN, SERUM 6.7 g/dL (6.0-8.3)
[2023-01-21] MEDS ORDERED: ALBUTEROL 0.083% 2.5 MG/3 ML INH IH ONE (11:30)
[2023-01-21 11:33] LABS: ABG BASE EXCESS 3.5 mmol/L (-2.0-3.0); ABG HCO3 28.2 mmol/L (21.0-28.0); ABG OXYGEN SATURATION 98.6 % (95.0-99.0); ABG PCO2 43 mmHg (32-45); ABG PH 7.439 (7.35-7.450); DEVICE COMMENT RR 2LNC; PO2, ARTERIAL BG 127.3 mmHg (83.0-108.0)
[2023-01-21 12:27] VITALS: PULSE 105; RESP 20
[2023-01-21] MEDS: DILTIAZEM 180MG SR CAP PO SCH (14:53)
[2023-01-21] MEDS: POTASSIUM CHLORIDE 10% ELIXIR 20 MEQ/15 ML UDCUP PO SCH (14:53)
[2023-01-21] MEDS ORDERED: ONDANSETRON 4MG TABLET PO PRN (15:00)
[2023-01-21] MEDS ORDERED: NITROGLYCERIN 0.4 MG SL TAB SL PRN (15:00)
[2023-01-21] MEDS ORDERED: ACETAMINOPHEN 650 MG SUPPOSITORY RC PRN (16:30)
[2023-01-21] MEDS ORDERED: DOCUSATE SODIUM 100 MG CAP PO PRN (16:30)
[2023-01-21] MEDS ORDERED: ONDANSETRON 4MG INJ IVP PRN (16:30)
[2023-01-21] MEDS ORDERED: LACTULOSE 20 GM/30 ML UDCUP PO PRN (16:30)
[2023-01-21] MEDS ORDERED: HYDRALAZINE 20MG/ML VIAL IV PRN (16:30)
[2023-01-21] MEDS ORDERED: CLONIDINE HCL 0.1 MG TABLET PO PRN (16:30)
[2023-01-21] MEDS: FLUTICASONE PROPIONATE 50MCG/SPRAY 16 GM BOTTLE EN SCH (20:47)
[2023-01-21] MEDS: ACETAMINOPHEN 325 MG TAB PO PRN (21:33)
[2023-01-21 21:55] VITALS: BP 116/58; PULSE 72; RESP 20; O2SAT 99
[2023-01-22] VITALS (14 sets, daily range): BP systolic 85–135; BP diastolic 40–73; PULSE 49–118; RESP 16–20; O2SAT 99
[2023-01-22 04:05] LABS: BASOPHILS # (AUTO) 0.05 K/uL (0.00-0.20); BASOPHILS % (AUTO) 0.6 % (0.0-5.0); EOSINOPHILS # (AUTO) 0.26 K/uL (0.00-0.70); EOSINOPHILS % (AUTO) 3.4 % (0.0-8.0); HEMATOCRIT 31.8 % (36-48); IMMATURE GRANULOCYTE ABSOLUTE 0.01 K/uL (0-1); LYMPHOCYTES # (AUTO) 1.2 K/uL (1.0-4.8); LYMPHOCYTES % (AUTO) 15.2 % (21.0-51.0); MEAN CORPUSCULAR HEMOGLOBIN 32.9 pg (27.0-33.0); MEAN CORPUSCULAR HGB CONC 30.5 g/dL (32.0-36.0); MEAN CORPUSCULAR VOLUME 107.8 fL (79-99); MONOCYTES # (AUTO) 0.6 K/uL (0.1-1.0); MONOCYTES % (AUTO) 7.5 % (3.0-13.0); NEUTROPHILS # (AUTO) 5.7 K/uL (1.8-7.7); NEUTROPHILS % (AUTO) 73.2 % (40.0-77.0); PLATELET COUNT (AUTO) 192 K/uL (130-400); RED BLOOD CELL COUNT(AUTO) 2.95 MIL/uL (4.00-5.50); RED CELL DISTRIBUTION WIDTH 15.8 % (11.0-15.5); WHITE BLOOD COUNT (AUTO) 7.7 K/uL (4.8-10.8)
[2023-01-22 04:14] LABS: CREATININE 3.8 mg/dL (0.5-1.5); MAGNESIUM 1.8 mg/dL (1.80-2.40)
[2023-01-22] MEDS ORDERED: METOPROLOL TARTRATE 50 MG PO SCH (09:00)
[2023-01-22] MEDS ORDERED: PANTOPRAZOLE 40 MG TAB DR PO SCH (09:00)
[2023-01-22] MEDS ORDERED: Rena-Vite Rx Tablet PO SCH (09:00)
[2023-01-22] MEDS ORDERED: METOPROLOL TARTRATE 50 MG TAB PO SCH (09:00)
[2023-01-22] MEDS ORDERED: ATORVASTATIN 40 MG TABLET PO SCH (09:00)
[2023-01-22] MEDS: FLUTICASONE PROPIONATE 50MCG/SPRAY 16 GM BOTTLE EN SCH (09:00)
[2023-01-22] MEDS ORDERED: NON-FORMULARY MEDICATION 1 EACH (Diltiazem HCl (Diltiazem ER) 180 MG) PO SCH (09:00)
[2023-01-22 09:10] LABS: INR 0.94 (0.85-1.15)
[2023-01-22] MEDS: DILTIAZEM 180MG SR CAP PO SCH (09:12)
[2023-01-22] MEDS: ACETAMINOPHEN 325 MG TAB PO PRN (12:16)
[2023-01-22] MEDS: POTASSIUM CHLORIDE 10% ELIXIR 20 MEQ/15 ML UDCUP PO SCH (12:23)
[2023-01-22] MEDS ORDERED: BACITRACIN 28.4 GM OINT TP SCH (13:00)
[2023-01-22] MEDS ORDERED: MIDODRINE HCL 5 MG TABLET ONE (13:13)
[2023-01-22] MEDS ORDERED: 0.9% NACL 250ML 250 ML IV SCH (13:30)
[2023-01-22] MEDS ORDERED: MIDODRINE HCL 5 MG TABLET PO ONE (13:30)
[2023-01-22 15:12] LABS: BODY FLUID RBC 108 /cu. mm.; BODY FLUID WBC 177 /cu. mm.
[2023-01-22 15:16] LABS: APPEARANCE BODY FLUID CLEAR (CLEAR); COLOR,BODY FLUID YELLOW (LT YELLOW); SPECIMENTYPE,BODY FLUID PLEURAL; TOTAL VOLUME,BODY FLUID 1500 mL
[2023-01-22 17:47] LABS: BF LYMPHOCYTE 20 %; BF MACROPHAGE 63; BF TOTAL CELLS COUNTED 100
== END 2023-01-22 18:50 | disposition home or self-care (01) ==
LOC: EDH 10:28 → EDHIP 16:03 → 4BH 20:54
PROVIDERS: ADMIT Internal Medicine Critical Care Medicine; ATTEND Internal Medicine Critical Care Medicine
DX: R07.9 Chest pain, unspecified (principal); J90 Pleural effusion, not elsewhere classified; S51.812A Laceration without foreign body of left forearm, initial encounter; I13.2 Hypertensive heart and chronic kidney disease with heart failure and with stage 5 chronic kidney disease, or end stage renal disease; E11.22 Type 2 diabetes mellitus with diabetic chronic kidney disease; I50.33 Acute on chronic diastolic (congestive) heart failure; N18.6 End stage renal disease; D63.1 Anemia in chronic kidney disease; J96.11 Chronic respiratory failure with hypoxia; I48.20 Chronic atrial fibrillation, unspecified; E87.6 Hypokalemia; E87.1 Hypo-osmolality and hyponatremia; I34.0 Nonrheumatic mitral (valve) insufficiency; R64 Cachexia; Z79.01 Long term (current) use of anticoagulants; Z99.2 Dependence on renal dialysis; Z90.710 Acquired absence of both cervix and uterus; Z68.22 Body mass index [BMI] 22.0-22.9, adult; Z91.199 Patient's noncompliance with other medical treatment and regimen due to unspecified reason; Z99.81 Dependence on supplemental oxygen; X58.XXXA Exposure to other specified factors, initial encounter; Y93.89 Activity, other specified; Y92.89 Other specified places as the place of occurrence of the external cause; Y99.8 Other external cause status
CPT/HCPCS: 99285; 84484 ×2; 80053; 82803; 85025 ×2; 36415 ×2; 71045 ×2; 93005; 36600; 94640; 83735; 80048; 89051; 85610; 85730; 87071; 87205; 32555; G0378 ×27; C1729

== ENCOUNTER → 2023-01-25 | Outpatient (CLI) | payer OTHER ==
[~2023-01-25] MED LIST changes: -DILT180C63 PO; -DILT180C77 PO; +LIDOCAINE HCL 4% LTA SOL 4 ML VIAL TP ONE; -METO100T14 PO
== END | disposition home or self-care (01) ==
LOC: WHH 10:09
PROVIDERS: ATTEND Nurse Practitioner Family
DX: S51.812D Laceration without foreign body of left forearm, subsequent encounter (principal); S51.002D Unspecified open wound of left elbow, subsequent encounter; S81.802D Unspecified open wound, left lower leg, subsequent encounter; E11.22 Type 2 diabetes mellitus with diabetic chronic kidney disease; I12.0 Hypertensive chronic kidney disease with stage 5 chronic kidney disease or end stage renal disease; N18.6 End stage renal disease; I48.91 Unspecified atrial fibrillation; I25.10 Atherosclerotic heart disease of native coronary artery without angina pectoris; I25.2 Old myocardial infarction; J44.9 Chronic obstructive pulmonary disease, unspecified; K21.9 Gastro-esophageal reflux disease without esophagitis; Z99.2 Dependence on renal dialysis; Z95.810 Presence of automatic (implantable) cardiac defibrillator; Z79.01 Long term (current) use of anticoagulants; Z90.49 Acquired absence of other specified parts of digestive tract; Z90.710 Acquired absence of both cervix and uterus; Z79.899 Other long term (current) drug therapy; W19.XXXD Unspecified fall, subsequent encounter
CPT/HCPCS: G0463

== ENCOUNTER → 2023-02-08 | Outpatient (CLI) | payer OTHER ==
[~2023-02-08] MED LIST changes: -LIDOCAINE HCL 4% LTA SOL 4 ML VIAL TP ONE
== END | disposition home or self-care (01) ==
LOC: WHH 09:42
PROVIDERS: ATTEND Nurse Practitioner Family
DX: S81.802A Unspecified open wound, left lower leg, initial encounter (principal); E11.22 Type 2 diabetes mellitus with diabetic chronic kidney disease; I12.0 Hypertensive chronic kidney disease with stage 5 chronic kidney disease or end stage renal disease; N18.6 End stage renal disease; I48.91 Unspecified atrial fibrillation; I25.10 Atherosclerotic heart disease of native coronary artery without angina pectoris; I25.2 Old myocardial infarction; J44.9 Chronic obstructive pulmonary disease, unspecified; R21 Rash and other nonspecific skin eruption; K21.9 Gastro-esophageal reflux disease without esophagitis; Z99.2 Dependence on renal dialysis; Z90.710 Acquired absence of both cervix and uterus; Z95.810 Presence of automatic (implantable) cardiac defibrillator; Z79.01 Long term (current) use of anticoagulants; Z90.49 Acquired absence of other specified parts of digestive tract; Z79.899 Other long term (current) drug therapy; W19.XXXD Unspecified fall, subsequent encounter; Y93.89 Activity, other specified; Y92.89 Other specified places as the place of occurrence of the external cause; Y99.8 Other external cause status
CPT/HCPCS: G0463; A4450

== ENCOUNTER → 2023-02-12 | Outpatient (CLI) | payer OTHER | END | disposition home or self-care (01) | LOC: RAH 09:33 | PROVIDERS: ATTEND Family Medicine | DX: J90 Pleural effusion, not elsewhere classified (principal); J93.9 Pneumothorax, unspecified; N18.5 Chronic kidney disease, stage 5; J96.11 Chronic respiratory failure with hypoxia | CPT/HCPCS: 32555; 71045 ×2; C1729 ==

== ENCOUNTER → 2023-02-15 | Outpatient (CLI) | payer OTHER | END | disposition home or self-care (01) | LOC: WHH 09:29 | PROVIDERS: ATTEND Nurse Practitioner Family | DX: S81.802D Unspecified open wound, left lower leg, subsequent encounter (principal); E11.22 Type 2 diabetes mellitus with diabetic chronic kidney disease; I12.0 Hypertensive chronic kidney disease with stage 5 chronic kidney disease or end stage renal disease; N18.6 End stage renal disease; I48.91 Unspecified atrial fibrillation; I25.10 Atherosclerotic heart disease of native coronary artery without angina pectoris; I25.2 Old myocardial infarction; J44.9 Chronic obstructive pulmonary disease, unspecified; R21 Rash and other nonspecific skin eruption; K21.9 Gastro-esophageal reflux disease without esophagitis; Z99.2 Dependence on renal dialysis; Z90.710 Acquired absence of both cervix and uterus; Z95.810 Presence of automatic (implantable) cardiac defibrillator; Z79.01 Long term (current) use of anticoagulants; Z90.49 Acquired absence of other specified parts of digestive tract; Z79.899 Other long term (current) drug therapy; W19.XXXD Unspecified fall, subsequent encounter | CPT/HCPCS: G0463 ==

== ENCOUNTER → 2023-02-19 | Outpatient (CLI) | payer OTHER | END | disposition home or self-care (01) | LOC: RAH 07:30 | PROVIDERS: ATTEND Family Medicine | DX: J90 Pleural effusion, not elsewhere classified (principal); N18.5 Chronic kidney disease, stage 5; J96.11 Chronic respiratory failure with hypoxia | CPT/HCPCS: 32555; 71045; C1729 ==

== ENCOUNTER → 2023-02-22 | Outpatient (CLI) | payer OTHER | END | disposition home or self-care (01) | LOC: WHH 09:27 | PROVIDERS: ATTEND Nurse Practitioner Family | DX: S81.802D Unspecified open wound, left lower leg, subsequent encounter (principal); E11.22 Type 2 diabetes mellitus with diabetic chronic kidney disease; I12.0 Hypertensive chronic kidney disease with stage 5 chronic kidney disease or end stage renal disease; N18.6 End stage renal disease; I48.91 Unspecified atrial fibrillation; I25.10 Atherosclerotic heart disease of native coronary artery without angina pectoris; I25.2 Old myocardial infarction; J44.9 Chronic obstructive pulmonary disease, unspecified; R21 Rash and other nonspecific skin eruption; K21.9 Gastro-esophageal reflux disease without esophagitis; Z99.2 Dependence on renal dialysis; Z90.710 Acquired absence of both cervix and uterus; Z95.810 Presence of automatic (implantable) cardiac defibrillator; Z90.49 Acquired absence of other specified parts of digestive tract; Z79.01 Long term (current) use of anticoagulants; Z79.899 Other long term (current) drug therapy; W19.XXXD Unspecified fall, subsequent encounter | CPT/HCPCS: 11042 ==

== ENCOUNTER → 2023-02-26 | Outpatient (CLI) | payer OTHER ==
[2023-02-26 08:19] LABS: INR 0.98 (0.85-1.15); PROTHROMBIN TIME 11.4 SEC (9.6-11.6)
== END | disposition home or self-care (01) ==
LOC: RAH 07:38
PROVIDERS: ATTEND Family Medicine
DX: J90 Pleural effusion, not elsewhere classified (principal); N18.5 Chronic kidney disease, stage 5; J96.11 Chronic respiratory failure with hypoxia
CPT/HCPCS: 36415; 76604; 85610; 85730

== ENCOUNTER → 2023-03-01 | Outpatient (CLI) | payer OTHER ==
[~2023-03-01] MED LIST changes: +LIDOCAINE HCL 4% LTA SOL 4 ML VIAL TP ONE
== END | disposition home or self-care (01) ==
LOC: WHH 09:40
PROVIDERS: ATTEND Nurse Practitioner Family
DX: S81.802D Unspecified open wound, left lower leg, subsequent encounter (principal); E11.22 Type 2 diabetes mellitus with diabetic chronic kidney disease; I12.0 Hypertensive chronic kidney disease with stage 5 chronic kidney disease or end stage renal disease; N18.6 End stage renal disease; I48.91 Unspecified atrial fibrillation; I25.10 Atherosclerotic heart disease of native coronary artery without angina pectoris; I25.2 Old myocardial infarction; J44.9 Chronic obstructive pulmonary disease, unspecified; R21 Rash and other nonspecific skin eruption; K21.9 Gastro-esophageal reflux disease without esophagitis; Z99.2 Dependence on renal dialysis; Z90.710 Acquired absence of both cervix and uterus; Z95.810 Presence of automatic (implantable) cardiac defibrillator; Z90.49 Acquired absence of other specified parts of digestive tract; Z79.01 Long term (current) use of anticoagulants; Z79.899 Other long term (current) drug therapy; W19.XXXD Unspecified fall, subsequent encounter
CPT/HCPCS: 11042

== ENCOUNTER → 2023-03-05 | Outpatient (CLI) | payer OTHER ==
[~2023-03-05] MED LIST changes: -LIDOCAINE HCL 4% LTA SOL 4 ML VIAL TP ONE
== END | disposition home or self-care (01) ==
LOC: RAH 07:25
PROVIDERS: ATTEND Family Medicine
DX: J90 Pleural effusion, not elsewhere classified (principal); N18.5 Chronic kidney disease, stage 5; J96.11 Chronic respiratory failure with hypoxia; I50.9 Heart failure, unspecified; Z79.01 Long term (current) use of anticoagulants
CPT/HCPCS: 32555; 71045; C1729

== ENCOUNTER → 2023-03-08 | Outpatient (CLI) | payer OTHER ==
[~2023-03-08] MED LIST changes: +LIDOCAINE HCL 4% LTA SOL 4 ML VIAL TP ONE
== END | disposition home or self-care (01) ==
LOC: WHH 08:51
PROVIDERS: ATTEND Nurse Practitioner Family
DX: S81.802D Unspecified open wound, left lower leg, subsequent encounter (principal); E11.22 Type 2 diabetes mellitus with diabetic chronic kidney disease; I12.0 Hypertensive chronic kidney disease with stage 5 chronic kidney disease or end stage renal disease; N18.6 End stage renal disease; I48.91 Unspecified atrial fibrillation; I25.10 Atherosclerotic heart disease of native coronary artery without angina pectoris; I25.2 Old myocardial infarction; J44.9 Chronic obstructive pulmonary disease, unspecified; R21 Rash and other nonspecific skin eruption; K21.9 Gastro-esophageal reflux disease without esophagitis; Z99.2 Dependence on renal dialysis; Z90.710 Acquired absence of both cervix and uterus; Z95.810 Presence of automatic (implantable) cardiac defibrillator; Z90.49 Acquired absence of other specified parts of digestive tract; Z79.01 Long term (current) use of anticoagulants; Z79.899 Other long term (current) drug therapy; W19.XXXD Unspecified fall, subsequent encounter
CPT/HCPCS: 11042

== ENCOUNTER → 2023-03-12 | Outpatient (CLI) | payer OTHER ==
[~2023-03-12] MED LIST changes: -LIDOCAINE HCL 4% LTA SOL 4 ML VIAL TP ONE
== END | disposition home or self-care (01) ==
LOC: RAH 07:29
PROVIDERS: ATTEND Family Medicine
DX: J90 Pleural effusion, not elsewhere classified (principal); N18.5 Chronic kidney disease, stage 5; I50.9 Heart failure, unspecified; J96.11 Chronic respiratory failure with hypoxia
CPT/HCPCS: 32555; 71045; C1729

== ENCOUNTER → 2023-03-15 | Outpatient (CLI) | payer OTHER ==
[~2023-03-15] MED LIST changes: +LIDOCAINE HCL 4% LTA SOL 4 ML VIAL TP ONE
== END | disposition home or self-care (01) ==
LOC: WHH 09:30
PROVIDERS: ATTEND Nurse Practitioner Family
DX: S81.802D Unspecified open wound, left lower leg, subsequent encounter (principal); E83.59 Other disorders of calcium metabolism; E11.22 Type 2 diabetes mellitus with diabetic chronic kidney disease; I12.0 Hypertensive chronic kidney disease with stage 5 chronic kidney disease or end stage renal disease; N18.6 End stage renal disease; I48.91 Unspecified atrial fibrillation; I25.10 Atherosclerotic heart disease of native coronary artery without angina pectoris; I25.2 Old myocardial infarction; J44.9 Chronic obstructive pulmonary disease, unspecified; R21 Rash and other nonspecific skin eruption; K21.9 Gastro-esophageal reflux disease without esophagitis; Z99.2 Dependence on renal dialysis; Z90.710 Acquired absence of both cervix and uterus; Z95.810 Presence of automatic (implantable) cardiac defibrillator; Z90.49 Acquired absence of other specified parts of digestive tract; Z79.01 Long term (current) use of anticoagulants; Z79.899 Other long term (current) drug therapy; W19.XXXD Unspecified fall, subsequent encounter
CPT/HCPCS: G0463; A4450

== ENCOUNTER → 2023-03-19 | Outpatient (CLI) | payer OTHER ==
[~2023-03-19] MED LIST changes: -LIDOCAINE HCL 4% LTA SOL 4 ML VIAL TP ONE
== END | disposition home or self-care (01) ==
LOC: RAH 07:30
PROVIDERS: ATTEND Family Medicine
DX: J90 Pleural effusion, not elsewhere classified (principal); J96.11 Chronic respiratory failure with hypoxia; N18.5 Chronic kidney disease, stage 5; Z79.01 Long term (current) use of anticoagulants
CPT/HCPCS: 32555; 71045; C1729

== ENCOUNTER → 2023-03-22 | Outpatient (CLI) | payer OTHER ==
[~2023-03-22] MED LIST changes: +LIDOCAINE HCL 4% LTA SOL 4 ML VIAL TP ONE
== END | disposition home or self-care (01) ==
LOC: WHH 09:24
PROVIDERS: ATTEND Nurse Practitioner Family
DX: S81.802D Unspecified open wound, left lower leg, subsequent encounter (principal); E11.22 Type 2 diabetes mellitus with diabetic chronic kidney disease; I12.0 Hypertensive chronic kidney disease with stage 5 chronic kidney disease or end stage renal disease; N18.6 End stage renal disease; I48.91 Unspecified atrial fibrillation; I25.10 Atherosclerotic heart disease of native coronary artery without angina pectoris; I25.2 Old myocardial infarction; J44.9 Chronic obstructive pulmonary disease, unspecified; R21 Rash and other nonspecific skin eruption; K21.9 Gastro-esophageal reflux disease without esophagitis; Z99.2 Dependence on renal dialysis; Z90.710 Acquired absence of both cervix and uterus; Z95.810 Presence of automatic (implantable) cardiac defibrillator; Z90.49 Acquired absence of other specified parts of digestive tract; Z79.01 Long term (current) use of anticoagulants; Z79.899 Other long term (current) drug therapy; W19.XXXD Unspecified fall, subsequent encounter
CPT/HCPCS: G0463

== ENCOUNTER → 2023-03-26 | Outpatient (CLI) | payer OTHER ==
[~2023-03-26] MED LIST changes: -LIDOCAINE HCL 4% LTA SOL 4 ML VIAL TP ONE
== END | disposition home or self-care (01) ==
LOC: RAH 07:33
PROVIDERS: ATTEND Family Medicine
DX: J90 Pleural effusion, not elsewhere classified (principal); N18.5 Chronic kidney disease, stage 5; J96.11 Chronic respiratory failure with hypoxia; Z79.01 Long term (current) use of anticoagulants; Z79.899 Other long term (current) drug therapy
CPT/HCPCS: 32555; 71045; C1729

== ENCOUNTER → 2023-03-29 | Outpatient (CLI) | payer OTHER ==
[~2023-03-29] MED LIST changes: +LIDOCAINE HCL 4% LTA SOL 4 ML VIAL TP ONE
== END | disposition home or self-care (01) ==
LOC: WHH 10:09
PROVIDERS: ATTEND Nurse Practitioner Family
DX: S81.802D Unspecified open wound, left lower leg, subsequent encounter (principal); E11.22 Type 2 diabetes mellitus with diabetic chronic kidney disease; I12.0 Hypertensive chronic kidney disease with stage 5 chronic kidney disease or end stage renal disease; N18.6 End stage renal disease; I48.91 Unspecified atrial fibrillation; I25.10 Atherosclerotic heart disease of native coronary artery without angina pectoris; I25.2 Old myocardial infarction; J44.9 Chronic obstructive pulmonary disease, unspecified; R21 Rash and other nonspecific skin eruption; K21.9 Gastro-esophageal reflux disease without esophagitis; Z99.2 Dependence on renal dialysis; Z90.710 Acquired absence of both cervix and uterus; Z95.810 Presence of automatic (implantable) cardiac defibrillator; Z90.49 Acquired absence of other specified parts of digestive tract; Z79.01 Long term (current) use of anticoagulants; Z79.899 Other long term (current) drug therapy; W19.XXXD Unspecified fall, subsequent encounter
CPT/HCPCS: G0463; A6209

== ENCOUNTER → 2023-04-05 | Outpatient (CLI) | payer OTHER ==
[~2023-04-05] MED LIST changes: -LIDOCAINE HCL 4% LTA SOL 4 ML VIAL TP ONE
[2023-04-05 10:34] LABS: INR 0.95 (0.85-1.15); PROTHROMBIN TIME 11.1 SEC (9.6-11.6)
[2023-04-05 10:35] LABS: PARTIAL THROMBOPLASTIN TIME 32.7 SEC (26.3-35.5)
== END | disposition home or self-care (01) ==
LOC: RAH 08:52
PROVIDERS: ATTEND Family Medicine
DX: J90 Pleural effusion, not elsewhere classified (principal); J96.11 Chronic respiratory failure with hypoxia; E11.51 Type 2 diabetes mellitus with diabetic peripheral angiopathy without gangrene; E11.22 Type 2 diabetes mellitus with diabetic chronic kidney disease; I13.2 Hypertensive heart and chronic kidney disease with heart failure and with stage 5 chronic kidney disease, or end stage renal disease; I50.42 Chronic combined systolic (congestive) and diastolic (congestive) heart failure; N18.6 End stage renal disease; F41.9 Anxiety disorder, unspecified; J44.9 Chronic obstructive pulmonary disease, unspecified; I87.2 Venous insufficiency (chronic) (peripheral); M81.0 Age-related osteoporosis without current pathological fracture; K21.9 Gastro-esophageal reflux disease without esophagitis; M10.9 Gout, unspecified; G47.00 Insomnia, unspecified; F32.5 Major depressive disorder, single episode, in full remission; E78.2 Mixed hyperlipidemia; M15.8 Other polyosteoarthritis; B35.1 Tinea unguium; Z82.49 Family history of ischemic heart disease and other diseases of the circulatory system; Z83.3 Family history of diabetes mellitus; Z80.0 Family history of malignant neoplasm of digestive organs; Z90.710 Acquired absence of both cervix and uterus; Z90.49 Acquired absence of other specified parts of digestive tract; Z98.890 Other specified postprocedural states; Z98.891 History of uterine scar from previous surgery; Z99.2 Dependence on renal dialysis
CPT/HCPCS: 32555; 71045; 85610; 85730; 36415; C1729

== ENCOUNTER → 2023-04-05 | Outpatient (CLI) | payer OTHER ==
[~2023-04-05] MED LIST changes: +LIDOCAINE HCL 4% LTA SOL 4 ML VIAL TP ONE
== END | disposition home or self-care (01) ==
LOC: WHH 07:55
PROVIDERS: ATTEND Nurse Practitioner Family
DX: S81.802D Unspecified open wound, left lower leg, subsequent encounter (principal); E11.22 Type 2 diabetes mellitus with diabetic chronic kidney disease; I12.0 Hypertensive chronic kidney disease with stage 5 chronic kidney disease or end stage renal disease; N18.6 End stage renal disease; I48.91 Unspecified atrial fibrillation; I25.10 Atherosclerotic heart disease of native coronary artery without angina pectoris; I25.2 Old myocardial infarction; J44.9 Chronic obstructive pulmonary disease, unspecified; R21 Rash and other nonspecific skin eruption; K21.9 Gastro-esophageal reflux disease without esophagitis; Z99.2 Dependence on renal dialysis; Z90.710 Acquired absence of both cervix and uterus; Z95.810 Presence of automatic (implantable) cardiac defibrillator; Z90.49 Acquired absence of other specified parts of digestive tract; Z79.01 Long term (current) use of anticoagulants; Z79.899 Other long term (current) drug therapy; W19.XXXD Unspecified fall, subsequent encounter
CPT/HCPCS: G0463; A6209

== ENCOUNTER → 2023-04-09 | Outpatient (CLI) | payer OTHER ==
[~2023-04-09] MED LIST changes: -LIDOCAINE HCL 4% LTA SOL 4 ML VIAL TP ONE
== END | disposition home or self-care (01) ==
LOC: RAH 07:49
PROVIDERS: ATTEND Family Medicine
DX: J90 Pleural effusion, not elsewhere classified (principal); N18.6 End stage renal disease; Z79.01 Long term (current) use of anticoagulants; Z79.899 Other long term (current) drug therapy
CPT/HCPCS: 32555; 71045; C1729

== ENCOUNTER → 2023-04-12 | Outpatient (CLI) | payer OTHER ==
[~2023-04-12] MED LIST changes: +LIDOCAINE HCL 4% LTA SOL 4 ML VIAL TP ONE
== END | disposition home or self-care (01) ==
LOC: WHH 09:23
PROVIDERS: ATTEND Nurse Practitioner Family
DX: S81.802D Unspecified open wound, left lower leg, subsequent encounter (principal); E11.22 Type 2 diabetes mellitus with diabetic chronic kidney disease; I12.0 Hypertensive chronic kidney disease with stage 5 chronic kidney disease or end stage renal disease; N18.6 End stage renal disease; I48.91 Unspecified atrial fibrillation; I25.10 Atherosclerotic heart disease of native coronary artery without angina pectoris; I25.2 Old myocardial infarction; J44.9 Chronic obstructive pulmonary disease, unspecified; R21 Rash and other nonspecific skin eruption; K21.9 Gastro-esophageal reflux disease without esophagitis; Z99.2 Dependence on renal dialysis; Z90.710 Acquired absence of both cervix and uterus; Z95.810 Presence of automatic (implantable) cardiac defibrillator; Z90.49 Acquired absence of other specified parts of digestive tract; Z79.01 Long term (current) use of anticoagulants; Z79.899 Other long term (current) drug therapy; W19.XXXD Unspecified fall, subsequent encounter
CPT/HCPCS: G0463; A6250; A6209; A4450

== ENCOUNTER → 2023-04-16 | Outpatient (CLI) | payer OTHER ==
[~2023-04-16] MED LIST changes: -LIDOCAINE HCL 4% LTA SOL 4 ML VIAL TP ONE
== END | disposition home or self-care (01) ==
LOC: RAH 07:38
PROVIDERS: ATTEND Family Medicine
DX: J90 Pleural effusion, not elsewhere classified (principal); J96.11 Chronic respiratory failure with hypoxia; E11.51 Type 2 diabetes mellitus with diabetic peripheral angiopathy without gangrene; E11.22 Type 2 diabetes mellitus with diabetic chronic kidney disease; I13.2 Hypertensive heart and chronic kidney disease with heart failure and with stage 5 chronic kidney disease, or end stage renal disease; I50.42 Chronic combined systolic (congestive) and diastolic (congestive) heart failure; N18.6 End stage renal disease; F41.9 Anxiety disorder, unspecified; J44.9 Chronic obstructive pulmonary disease, unspecified; I87.2 Venous insufficiency (chronic) (peripheral); M81.0 Age-related osteoporosis without current pathological fracture; M10.9 Gout, unspecified; K21.9 Gastro-esophageal reflux disease without esophagitis; G47.00 Insomnia, unspecified; E78.2 Mixed hyperlipidemia; M15.8 Other polyosteoarthritis; F32.5 Major depressive disorder, single episode, in full remission; B35.1 Tinea unguium; Z82.49 Family history of ischemic heart disease and other diseases of the circulatory system; Z83.3 Family history of diabetes mellitus; Z80.0 Family history of malignant neoplasm of digestive organs; Z90.710 Acquired absence of both cervix and uterus; Z90.49 Acquired absence of other specified parts of digestive tract; Z98.890 Other specified postprocedural states; Z98.891 History of uterine scar from previous surgery; Z99.2 Dependence on renal dialysis
CPT/HCPCS: 32555; 71045; C1729

== ENCOUNTER → 2023-04-23 | Outpatient (CLI) | payer OTHER | END | disposition home or self-care (01) | LOC: RAH 07:39 | PROVIDERS: ATTEND Family Medicine | DX: J90 Pleural effusion, not elsewhere classified (principal); N18.5 Chronic kidney disease, stage 5; J96.11 Chronic respiratory failure with hypoxia; I51.7 Cardiomegaly; Z98.890 Other specified postprocedural states | CPT/HCPCS: 32555; 71045; C1729 ==

== ENCOUNTER → 2023-04-26 | Outpatient (CLI) | payer OTHER | END | disposition home or self-care (01) | LOC: WHH 09:22 | PROVIDERS: ATTEND Nurse Practitioner Family | DX: E83.59 Other disorders of calcium metabolism (principal); S81.802D Unspecified open wound, left lower leg, subsequent encounter; E11.628 Type 2 diabetes mellitus with other skin complications; R21 Rash and other nonspecific skin eruption; E11.22 Type 2 diabetes mellitus with diabetic chronic kidney disease; I12.0 Hypertensive chronic kidney disease with stage 5 chronic kidney disease or end stage renal disease; N18.6 End stage renal disease; I48.91 Unspecified atrial fibrillation; I25.10 Atherosclerotic heart disease of native coronary artery without angina pectoris; I25.2 Old myocardial infarction; J44.9 Chronic obstructive pulmonary disease, unspecified; K21.9 Gastro-esophageal reflux disease without esophagitis; Z99.2 Dependence on renal dialysis; Z90.710 Acquired absence of both cervix and uterus; Z95.810 Presence of automatic (implantable) cardiac defibrillator; Z90.49 Acquired absence of other specified parts of digestive tract; Z79.01 Long term (current) use of anticoagulants; Z79.899 Other long term (current) drug therapy; W19.XXXD Unspecified fall, subsequent encounter | CPT/HCPCS: G0463; A6250 ==

== ENCOUNTER → 2023-04-28 | Outpatient (CLI) | payer OTHER | END | disposition home or self-care (01) | LOC: RAH 08:08 | PROVIDERS: ATTEND Family Medicine | DX: J90 Pleural effusion, not elsewhere classified (principal); N18.5 Chronic kidney disease, stage 5; J96.11 Chronic respiratory failure with hypoxia; Z79.01 Long term (current) use of anticoagulants; Z79.899 Other long term (current) drug therapy | CPT/HCPCS: 32555; 71045; C1729 ==

== ENCOUNTER → 2023-05-04 | Outpatient (CLI) | payer OTHER | END | disposition home or self-care (01) | LOC: WHH 10:08 | PROVIDERS: ATTEND Nurse Practitioner Family | DX: S81.802D Unspecified open wound, left lower leg, subsequent encounter (principal); E11.628 Type 2 diabetes mellitus with other skin complications; E11.22 Type 2 diabetes mellitus with diabetic chronic kidney disease; I12.0 Hypertensive chronic kidney disease with stage 5 chronic kidney disease or end stage renal disease; N18.6 End stage renal disease; I50.42 Chronic combined systolic (congestive) and diastolic (congestive) heart failure; E83.59 Other disorders of calcium metabolism; I87.2 Venous insufficiency (chronic) (peripheral); R21 Rash and other nonspecific skin eruption; K21.9 Gastro-esophageal reflux disease without esophagitis; M10.9 Gout, unspecified; J44.9 Chronic obstructive pulmonary disease, unspecified; I48.91 Unspecified atrial fibrillation; G47.00 Insomnia, unspecified; I25.10 Atherosclerotic heart disease of native coronary artery without angina pectoris; I25.2 Old myocardial infarction; E78.2 Mixed hyperlipidemia; F41.9 Anxiety disorder, unspecified; Z99.2 Dependence on renal dialysis; Z95.810 Presence of automatic (implantable) cardiac defibrillator; Z90.49 Acquired absence of other specified parts of digestive tract; Z90.710 Acquired absence of both cervix and uterus; Z79.899 Other long term (current) drug therapy; W19.XXXD Unspecified fall, subsequent encounter | CPT/HCPCS: 11042; A6209 ==

== ENCOUNTER → 2023-05-05 | Outpatient (CLI) | payer OTHER | END | disposition home or self-care (01) | LOC: RAH 07:47 | PROVIDERS: ATTEND Family Medicine | DX: J90 Pleural effusion, not elsewhere classified (principal); N18.5 Chronic kidney disease, stage 5; J96.11 Chronic respiratory failure with hypoxia; Z79.01 Long term (current) use of anticoagulants | CPT/HCPCS: 32555; 71045; C1729 ==

== ENCOUNTER → 2023-05-11 | Outpatient (CLI) | payer OTHER ==
[~2023-05-11] MED LIST changes: +LIDOCAINE HCL 4% LTA SOL 4 ML VIAL TP ONE
== END | disposition home or self-care (01) ==
LOC: WHH 10:20
PROVIDERS: ATTEND Nurse Practitioner Family
DX: S81.812A Laceration without foreign body, left lower leg, initial encounter (principal); E83.59 Other disorders of calcium metabolism; E11.628 Type 2 diabetes mellitus with other skin complications; R21 Rash and other nonspecific skin eruption; E11.22 Type 2 diabetes mellitus with diabetic chronic kidney disease; I12.0 Hypertensive chronic kidney disease with stage 5 chronic kidney disease or end stage renal disease; N18.6 End stage renal disease; I48.91 Unspecified atrial fibrillation; I25.10 Atherosclerotic heart disease of native coronary artery without angina pectoris; I25.2 Old myocardial infarction; J44.9 Chronic obstructive pulmonary disease, unspecified; K21.9 Gastro-esophageal reflux disease without esophagitis; Z99.2 Dependence on renal dialysis; Z90.710 Acquired absence of both cervix and uterus; Z95.810 Presence of automatic (implantable) cardiac defibrillator; Z90.49 Acquired absence of other specified parts of digestive tract; Z79.01 Long term (current) use of anticoagulants; Z79.899 Other long term (current) drug therapy; X58.XXXA Exposure to other specified factors, initial encounter; Y93.89 Activity, other specified; Y92.89 Other specified places as the place of occurrence of the external cause; Y99.8 Other external cause status
CPT/HCPCS: G0463

== ENCOUNTER → 2023-05-12 | Outpatient (CLI) | payer OTHER ==
[~2023-05-12] MED LIST changes: -LIDOCAINE HCL 4% LTA SOL 4 ML VIAL TP ONE
[2023-05-12 09:04] LABS: INR 0.94 (0.85-1.15); PROTHROMBIN TIME 10.9 SEC (9.6-11.6)
[2023-05-12 09:05] LABS: PARTIAL THROMBOPLASTIN TIME 32.3 SEC (26.3-35.5)
== END | disposition home or self-care (01) ==
LOC: RAH 07:46
PROVIDERS: ATTEND Family Medicine
DX: J90 Pleural effusion, not elsewhere classified (principal); I50.9 Heart failure, unspecified; N18.5 Chronic kidney disease, stage 5; Z79.01 Long term (current) use of anticoagulants
CPT/HCPCS: 32555; 71045; 85610; 85730; 36415; C1729

== ENCOUNTER → 2023-05-17 | Outpatient (CLI) | payer OTHER ==
[~2023-05-17] MED LIST changes: +LIDOCAINE HCL 4% LTA SOL 4 ML VIAL TP ONE
== END | disposition home or self-care (01) ==
LOC: WHH 09:36
PROVIDERS: ATTEND Nurse Practitioner Family
DX: S81.812D Laceration without foreign body, left lower leg, subsequent encounter (principal); E83.59 Other disorders of calcium metabolism; S81.802D Unspecified open wound, left lower leg, subsequent encounter; E11.628 Type 2 diabetes mellitus with other skin complications; E11.22 Type 2 diabetes mellitus with diabetic chronic kidney disease; I12.0 Hypertensive chronic kidney disease with stage 5 chronic kidney disease or end stage renal disease; N18.6 End stage renal disease; I48.91 Unspecified atrial fibrillation; I25.10 Atherosclerotic heart disease of native coronary artery without angina pectoris; I25.2 Old myocardial infarction; J44.9 Chronic obstructive pulmonary disease, unspecified; K21.9 Gastro-esophageal reflux disease without esophagitis; Z99.2 Dependence on renal dialysis; Z90.710 Acquired absence of both cervix and uterus; Z95.810 Presence of automatic (implantable) cardiac defibrillator; Z90.49 Acquired absence of other specified parts of digestive tract; Z79.01 Long term (current) use of anticoagulants; Z79.899 Other long term (current) drug therapy; W19.XXXD Unspecified fall, subsequent encounter
CPT/HCPCS: G0463

== ENCOUNTER → 2023-05-21 | Outpatient (CLI) | payer OTHER ==
[~2023-05-21] MED LIST changes: -LIDOCAINE HCL 4% LTA SOL 4 ML VIAL TP ONE
== END | disposition home or self-care (01) ==
LOC: RAH 07:27
PROVIDERS: ATTEND Family Medicine
DX: J90 Pleural effusion, not elsewhere classified (principal); J96.11 Chronic respiratory failure with hypoxia; N18.5 Chronic kidney disease, stage 5; I50.9 Heart failure, unspecified; Z79.01 Long term (current) use of anticoagulants; Z79.899 Other long term (current) drug therapy
CPT/HCPCS: 32555; 71045; C1729

== ENCOUNTER → 2023-05-24 | Outpatient (CLI) | payer OTHER ==
[~2023-05-24] MED LIST changes: +LIDOCAINE HCL 4% LTA SOL 4 ML VIAL TP ONE
== END | disposition home or self-care (01) ==
LOC: WHH 09:28
PROVIDERS: ATTEND Nurse Practitioner Family
DX: S81.812D Laceration without foreign body, left lower leg, subsequent encounter (principal); S80.211A Abrasion, right knee, initial encounter; E83.59 Other disorders of calcium metabolism; E11.628 Type 2 diabetes mellitus with other skin complications; R21 Rash and other nonspecific skin eruption; E11.22 Type 2 diabetes mellitus with diabetic chronic kidney disease; I12.0 Hypertensive chronic kidney disease with stage 5 chronic kidney disease or end stage renal disease; N18.6 End stage renal disease; I48.91 Unspecified atrial fibrillation; I25.10 Atherosclerotic heart disease of native coronary artery without angina pectoris; I25.2 Old myocardial infarction; J44.9 Chronic obstructive pulmonary disease, unspecified; K21.9 Gastro-esophageal reflux disease without esophagitis; Z99.2 Dependence on renal dialysis; Z90.710 Acquired absence of both cervix and uterus; Z95.810 Presence of automatic (implantable) cardiac defibrillator; Z90.49 Acquired absence of other specified parts of digestive tract; Z79.01 Long term (current) use of anticoagulants; Z79.899 Other long term (current) drug therapy; X58.XXXD Exposure to other specified factors, subsequent encounter; X58.XXXA Exposure to other specified factors, initial encounter; Y93.89 Activity, other specified; Y92.89 Other specified places as the place of occurrence of the external cause; Y99.8 Other external cause status
CPT/HCPCS: G0463; A4450

== ENCOUNTER → 2023-05-28 | Outpatient (CLI) | payer OTHER ==
[~2023-05-28] MED LIST changes: -LIDOCAINE HCL 4% LTA SOL 4 ML VIAL TP ONE
== END | disposition home or self-care (01) ==
LOC: RAH 07:39
PROVIDERS: ATTEND Family Medicine
DX: J90 Pleural effusion, not elsewhere classified (principal); J96.11 Chronic respiratory failure with hypoxia; E11.22 Type 2 diabetes mellitus with diabetic chronic kidney disease; I13.2 Hypertensive heart and chronic kidney disease with heart failure and with stage 5 chronic kidney disease, or end stage renal disease; N18.6 End stage renal disease; I50.42 Chronic combined systolic (congestive) and diastolic (congestive) heart failure; J44.9 Chronic obstructive pulmonary disease, unspecified; K21.9 Gastro-esophageal reflux disease without esophagitis; M81.0 Age-related osteoporosis without current pathological fracture; F41.9 Anxiety disorder, unspecified; G47.00 Insomnia, unspecified; I48.91 Unspecified atrial fibrillation; M10.00 Idiopathic gout, unspecified site; E11.51 Type 2 diabetes mellitus with diabetic peripheral angiopathy without gangrene; F32.5 Major depressive disorder, single episode, in full remission; E78.2 Mixed hyperlipidemia; I25.119 Atherosclerotic heart disease of native coronary artery with unspecified angina pectoris; Z79.01 Long term (current) use of anticoagulants; Z79.899 Other long term (current) drug therapy; Z98.890 Other specified postprocedural states; Z99.2 Dependence on renal dialysis; Z90.49 Acquired absence of other specified parts of digestive tract; Z98.891 History of uterine scar from previous surgery; Z90.710 Acquired absence of both cervix and uterus; Z80.0 Family history of malignant neoplasm of digestive organs; Z83.3 Family history of diabetes mellitus; Z82.49 Family history of ischemic heart disease and other diseases of the circulatory system
CPT/HCPCS: 32555; 71045; C1729

== ENCOUNTER → 2023-05-31 | Outpatient (CLI) | payer OTHER ==
[~2023-05-31] MED LIST changes: +LIDOCAINE HCL 4% LTA SOL 4 ML VIAL TP ONE
== END | disposition home or self-care (01) ==
LOC: WHH 09:15
PROVIDERS: ATTEND Nurse Practitioner Family
DX: S81.812D Laceration without foreign body, left lower leg, subsequent encounter (principal); S80.211D Abrasion, right knee, subsequent encounter; S81.001D Unspecified open wound, right knee, subsequent encounter; E83.59 Other disorders of calcium metabolism; R21 Rash and other nonspecific skin eruption; E11.22 Type 2 diabetes mellitus with diabetic chronic kidney disease; I12.0 Hypertensive chronic kidney disease with stage 5 chronic kidney disease or end stage renal disease; N18.6 End stage renal disease; I48.91 Unspecified atrial fibrillation; I25.10 Atherosclerotic heart disease of native coronary artery without angina pectoris; I25.2 Old myocardial infarction; J44.9 Chronic obstructive pulmonary disease, unspecified; K21.9 Gastro-esophageal reflux disease without esophagitis; Z99.2 Dependence on renal dialysis; Z90.710 Acquired absence of both cervix and uterus; Z95.810 Presence of automatic (implantable) cardiac defibrillator; Z90.49 Acquired absence of other specified parts of digestive tract; Z79.01 Long term (current) use of anticoagulants; Z79.899 Other long term (current) drug therapy; W19.XXXD Unspecified fall, subsequent encounter
CPT/HCPCS: G0463; A6021

== ENCOUNTER → 2023-06-04 | Outpatient (CLI) | payer OTHER ==
[~2023-06-04] MED LIST changes: -LIDOCAINE HCL 4% LTA SOL 4 ML VIAL TP ONE
== END | disposition home or self-care (01) ==
LOC: RAH 07:32
PROVIDERS: ATTEND Family Medicine
DX: J90 Pleural effusion, not elsewhere classified (principal); J44.9 Chronic obstructive pulmonary disease, unspecified; K21.9 Gastro-esophageal reflux disease without esophagitis; M81.0 Age-related osteoporosis without current pathological fracture; F41.9 Anxiety disorder, unspecified; G47.00 Insomnia, unspecified; E78.2 Mixed hyperlipidemia; I25.119 Atherosclerotic heart disease of native coronary artery with unspecified angina pectoris; M10.9 Gout, unspecified; E11.51 Type 2 diabetes mellitus with diabetic peripheral angiopathy without gangrene; F32.5 Major depressive disorder, single episode, in full remission; I27.20 Pulmonary hypertension, unspecified; J96.11 Chronic respiratory failure with hypoxia; E11.22 Type 2 diabetes mellitus with diabetic chronic kidney disease; I13.2 Hypertensive heart and chronic kidney disease with heart failure and with stage 5 chronic kidney disease, or end stage renal disease; N18.6 End stage renal disease; I50.42 Chronic combined systolic (congestive) and diastolic (congestive) heart failure; E66.3 Overweight; Z79.01 Long term (current) use of anticoagulants; Z79.899 Other long term (current) drug therapy; Z90.49 Acquired absence of other specified parts of digestive tract; Z98.891 History of uterine scar from previous surgery; Z98.890 Other specified postprocedural states; Z90.710 Acquired absence of both cervix and uterus; Z80.0 Family history of malignant neoplasm of digestive organs; Z82.49 Family history of ischemic heart disease and other diseases of the circulatory system; Z83.3 Family history of diabetes mellitus; Z68.1 Body mass index [BMI] 19.9 or less, adult; Z99.2 Dependence on renal dialysis
CPT/HCPCS: 32555; 71045; C1729

== ENCOUNTER → 2023-06-07 | Outpatient (CLI) | payer OTHER ==
[~2023-06-07] MED LIST changes: +LIDOCAINE HCL 4% LTA SOL 4 ML VIAL TP ONE
== END | disposition home or self-care (01) ==
LOC: WHH 09:51
PROVIDERS: ATTEND Nurse Practitioner Family
DX: S81.812D Laceration without foreign body, left lower leg, subsequent encounter (principal); S80.211D Abrasion, right knee, subsequent encounter; S81.001A Unspecified open wound, right knee, initial encounter; E83.59 Other disorders of calcium metabolism; R21 Rash and other nonspecific skin eruption; E11.22 Type 2 diabetes mellitus with diabetic chronic kidney disease; I12.0 Hypertensive chronic kidney disease with stage 5 chronic kidney disease or end stage renal disease; N18.6 End stage renal disease; I48.91 Unspecified atrial fibrillation; I25.10 Atherosclerotic heart disease of native coronary artery without angina pectoris; I25.2 Old myocardial infarction; J44.9 Chronic obstructive pulmonary disease, unspecified; K21.9 Gastro-esophageal reflux disease without esophagitis; Z99.2 Dependence on renal dialysis; Z90.710 Acquired absence of both cervix and uterus; Z95.810 Presence of automatic (implantable) cardiac defibrillator; Z90.49 Acquired absence of other specified parts of digestive tract; Z79.01 Long term (current) use of anticoagulants; Z79.899 Other long term (current) drug therapy; W19.XXXD Unspecified fall, subsequent encounter; W19.XXXA Unspecified fall, initial encounter; Y99.8 Other external cause status; Y93.89 Activity, other specified; Y92.89 Other specified places as the place of occurrence of the external cause
CPT/HCPCS: 11042; A6021

== ENCOUNTER → 2023-06-11 | Outpatient (CLI) | payer OTHER ==
[~2023-06-11] MED LIST changes: -LIDOCAINE HCL 4% LTA SOL 4 ML VIAL TP ONE
== END | disposition home or self-care (01) ==
LOC: RAH 07:36
PROVIDERS: ATTEND Family Medicine
DX: J90 Pleural effusion, not elsewhere classified (principal); J44.9 Chronic obstructive pulmonary disease, unspecified; K21.9 Gastro-esophageal reflux disease without esophagitis; M81.0 Age-related osteoporosis without current pathological fracture; F41.0 Panic disorder [episodic paroxysmal anxiety]; F41.9 Anxiety disorder, unspecified; G47.00 Insomnia, unspecified; E78.2 Mixed hyperlipidemia; I25.119 Atherosclerotic heart disease of native coronary artery with unspecified angina pectoris; M10.9 Gout, unspecified; E11.51 Type 2 diabetes mellitus with diabetic peripheral angiopathy without gangrene; F32.5 Major depressive disorder, single episode, in full remission; I27.20 Pulmonary hypertension, unspecified; J96.11 Chronic respiratory failure with hypoxia; E11.22 Type 2 diabetes mellitus with diabetic chronic kidney disease; N18.6 End stage renal disease; I50.42 Chronic combined systolic (congestive) and diastolic (congestive) heart failure; E66.3 Overweight; Z98.890 Other specified postprocedural states; Z90.49 Acquired absence of other specified parts of digestive tract; Z98.891 History of uterine scar from previous surgery; Z90.710 Acquired absence of both cervix and uterus; Z80.0 Family history of malignant neoplasm of digestive organs; Z82.49 Family history of ischemic heart disease and other diseases of the circulatory system; Z68.1 Body mass index [BMI] 19.9 or less, adult; Z99.2 Dependence on renal dialysis; Z79.01 Long term (current) use of anticoagulants; Z79.899 Other long term (current) drug therapy
CPT/HCPCS: 32555; 71045; C1729

== ENCOUNTER → 2023-06-14 | Outpatient (CLI) | payer OTHER ==
[~2023-06-14] MED LIST changes: +LIDOCAINE HCL 4% LTA SOL 4 ML VIAL TP ONE
== END | disposition home or self-care (01) ==
LOC: WHH 08:54
PROVIDERS: ATTEND Nurse Practitioner Family
DX: S81.812D Laceration without foreign body, left lower leg, subsequent encounter (principal); S80.211D Abrasion, right knee, subsequent encounter; S81.001D Unspecified open wound, right knee, subsequent encounter; S81.002A Unspecified open wound, left knee, initial encounter; E11.622 Type 2 diabetes mellitus with other skin ulcer; L97.221 Non-pressure chronic ulcer of left calf limited to breakdown of skin; E83.59 Other disorders of calcium metabolism; R21 Rash and other nonspecific skin eruption; E11.22 Type 2 diabetes mellitus with diabetic chronic kidney disease; I12.0 Hypertensive chronic kidney disease with stage 5 chronic kidney disease or end stage renal disease; N18.6 End stage renal disease; I48.91 Unspecified atrial fibrillation; I25.10 Atherosclerotic heart disease of native coronary artery without angina pectoris; I25.2 Old myocardial infarction; J44.9 Chronic obstructive pulmonary disease, unspecified; K21.9 Gastro-esophageal reflux disease without esophagitis; Z99.2 Dependence on renal dialysis; Z90.710 Acquired absence of both cervix and uterus; Z95.810 Presence of automatic (implantable) cardiac defibrillator; Z90.49 Acquired absence of other specified parts of digestive tract; Z79.01 Long term (current) use of anticoagulants; Z79.899 Other long term (current) drug therapy; W19.XXXD Unspecified fall, subsequent encounter; W19.XXXA Unspecified fall, initial encounter; Y93.89 Activity, other specified; Y92.89 Other specified places as the place of occurrence of the external cause; Y99.8 Other external cause status
CPT/HCPCS: G0463; A6021; A4450

== ENCOUNTER → 2023-06-18 | Outpatient (CLI) | payer OTHER ==
[~2023-06-18] MED LIST changes: +AMOX500C2 PO; +ATOR40TA69 PO; +CYAN-52 PO; +DILT120C12 PO; +DILT120C78 PO; +DILT180C77 PO; +DOCU100C33 PO; +FERR324T4 PO; +FOLI0.8T22 PO; +LEVO25TA9 PO; -LIDOCAINE HCL 4% LTA SOL 4 ML VIAL TP ONE; +METO-409 PO; +METO100T14 PO; +MIDO10TA PO; +Midodrine Hcl PO; +ONDA4TAB10 PO; +PRED20TA3 PO; +VERA80TA11 PO
[2023-06-18 08:35] LABS: INR 0.96 (0.85-1.15); PROTHROMBIN TIME 11.2 SEC (9.6-11.6)
[2023-06-18 08:36] LABS: PARTIAL THROMBOPLASTIN TIME 32.5 SEC (26.3-35.5)
== END | disposition home or self-care (01) ==
LOC: RAH 07:40
PROVIDERS: ATTEND Family Medicine
DX: J90 Pleural effusion, not elsewhere classified (principal); I13.2 Hypertensive heart and chronic kidney disease with heart failure and with stage 5 chronic kidney disease, or end stage renal disease; E11.22 Type 2 diabetes mellitus with diabetic chronic kidney disease; N18.5 Chronic kidney disease, stage 5; I50.33 Acute on chronic diastolic (congestive) heart failure; E87.1 Hypo-osmolality and hyponatremia; I34.0 Nonrheumatic mitral (valve) insufficiency; I48.20 Chronic atrial fibrillation, unspecified; Z82.49 Family history of ischemic heart disease and other diseases of the circulatory system; Z83.3 Family history of diabetes mellitus; Z80.51 Family history of malignant neoplasm of kidney; Z79.899 Other long term (current) drug therapy
CPT/HCPCS: 32555; 71045; 85610; 85730; 36415; C1729

== ENCOUNTER → 2023-06-21 | Outpatient (CLI) | payer OTHER ==
[~2023-06-21] MED LIST changes: -ATOR40TA69 PO; -CYAN-52 PO; -DILT120C12 PO; -DILT120C78 PO; -FERR324T4 PO; -FOLI0.8T22 PO; -LEVO25TA9 PO; +LIDOCAINE HCL 4% LTA SOL 4 ML VIAL TP ONE; -METO-409 PO; -MIDO10TA PO; -Midodrine Hcl PO; -ONDA4TAB10 PO; -PRED20TA3 PO; -VERA80TA11 PO
== END | disposition home or self-care (01) ==
LOC: WHH 08:58
PROVIDERS: ATTEND Nurse Practitioner Family
DX: S81.802D Unspecified open wound, left lower leg, subsequent encounter (principal); S80.211D Abrasion, right knee, subsequent encounter; S81.001D Unspecified open wound, right knee, subsequent encounter; S81.002D Unspecified open wound, left knee, subsequent encounter; E11.622 Type 2 diabetes mellitus with other skin ulcer; L97.221 Non-pressure chronic ulcer of left calf limited to breakdown of skin; E83.59 Other disorders of calcium metabolism; R21 Rash and other nonspecific skin eruption; E11.22 Type 2 diabetes mellitus with diabetic chronic kidney disease; I12.0 Hypertensive chronic kidney disease with stage 5 chronic kidney disease or end stage renal disease; N18.6 End stage renal disease; I48.91 Unspecified atrial fibrillation; I25.10 Atherosclerotic heart disease of native coronary artery without angina pectoris; I25.2 Old myocardial infarction; J44.9 Chronic obstructive pulmonary disease, unspecified; K21.9 Gastro-esophageal reflux disease without esophagitis; Z99.2 Dependence on renal dialysis; Z90.710 Acquired absence of both cervix and uterus; Z95.810 Presence of automatic (implantable) cardiac defibrillator; Z90.49 Acquired absence of other specified parts of digestive tract; Z79.01 Long term (current) use of anticoagulants; Z79.899 Other long term (current) drug therapy; W19.XXXD Unspecified fall, subsequent encounter
CPT/HCPCS: G0463

== ENCOUNTER → 2023-06-25 | Outpatient (CLI) | payer OTHER ==
[~2023-06-25] MED LIST changes: -AMOX500C2 PO; -DILT180C77 PO; -DOCU100C33 PO; -LIDOCAINE HCL 4% LTA SOL 4 ML VIAL TP ONE; -METO100T14 PO
== END | disposition home or self-care (01) ==
LOC: RAH 08:00
PROVIDERS: ATTEND Family Medicine
DX: J90 Pleural effusion, not elsewhere classified (principal); J96.11 Chronic respiratory failure with hypoxia; I27.20 Pulmonary hypertension, unspecified; E11.22 Type 2 diabetes mellitus with diabetic chronic kidney disease; I13.2 Hypertensive heart and chronic kidney disease with heart failure and with stage 5 chronic kidney disease, or end stage renal disease; N18.6 End stage renal disease; I50.42 Chronic combined systolic (congestive) and diastolic (congestive) heart failure; I48.91 Unspecified atrial fibrillation; E66.3 Overweight; I25.2 Old myocardial infarction; R53.83 Other fatigue; E11.51 Type 2 diabetes mellitus with diabetic peripheral angiopathy without gangrene; J44.9 Chronic obstructive pulmonary disease, unspecified; K21.9 Gastro-esophageal reflux disease without esophagitis; M81.0 Age-related osteoporosis without current pathological fracture; F41.9 Anxiety disorder, unspecified; G47.00 Insomnia, unspecified; E78.2 Mixed hyperlipidemia; F32.5 Major depressive disorder, single episode, in full remission; M10.9 Gout, unspecified; I87.2 Venous insufficiency (chronic) (peripheral); Z79.01 Long term (current) use of anticoagulants; Z79.899 Other long term (current) drug therapy; Z90.49 Acquired absence of other specified parts of digestive tract; Z98.890 Other specified postprocedural states; Z90.710 Acquired absence of both cervix and uterus; Z98.891 History of uterine scar from previous surgery; Z82.49 Family history of ischemic heart disease and other diseases of the circulatory system; Z83.3 Family history of diabetes mellitus; Z80.0 Family history of malignant neoplasm of digestive organs; Z68.1 Body mass index [BMI] 19.9 or less, adult; Z99.2 Dependence on renal dialysis
CPT/HCPCS: 32555; 71045; C1729

== ENCOUNTER 2023-06-29 09:21 | Observation (INO) | payer OTHER ==
[~2023-06-29] VITALS: Ht 152.4 cm; Wt 54.1 kg
[2023-06-29 09:56] LABS: HEMATOCRIT 34.7 % (36-48); MEAN CORPUSCULAR HEMOGLOBIN 35.3 pg (27.0-33.0); MEAN CORPUSCULAR HGB CONC 31.4 g/dL (32.0-36.0); MEAN CORPUSCULAR VOLUME 112.3 fL (79-99); PLATELET COUNT (AUTO) 230 K/uL (130-400); RED BLOOD CELL COUNT(AUTO) 3.09 MIL/uL (4.00-5.50); RED CELL DISTRIBUTION WIDTH 14.1 % (11.0-15.5); WHITE BLOOD COUNT (AUTO) 7.9 K/uL (4.8-10.8)
[2023-06-29 10:02] LABS: POTASSIUM 3.4 mmol/L (3.5-5.1)
[2023-06-29] MEDS ORDERED: DOCU100C33 PO ×2 (10:11)
[2023-06-29] MEDS ORDERED: DILT180C77 PO ×2 (10:11)
[2023-06-29] MEDS ORDERED: METO100T14 PO ×2 (10:11)
[2023-06-29] MEDS: NITROGLYCERIN 1GM OINT 1 INCH/1GM TD ONE (10:16)
[2023-06-29] MEDS: ASPIRIN 325MG TAB PO ONE (10:16)
[2023-06-29 10:18] LABS: INR <= 0.93 (0.85-1.15); PROTHROMBIN TIME 10.6 SEC (9.6-11.6)
[2023-06-29 10:19] LABS: PARTIAL THROMBOPLASTIN TIME 31.3 SEC (26.3-35.5)
[2023-06-29] MEDS: ALBUTEROL 0.083% 2.5 MG/3 ML INH IH ONE (10:26)
[2023-06-29 10:27] VITALS: PULSE 90; RESP 20
[2023-06-29 10:47] LABS: RAPID GROUP A STREP positive (NEGATIVE)
[2023-06-29 10:56] LABS: COVID19 (SARS ANTIGEN RAPID) PRESUMPTIVE NEGATIVE (NEGATIVE); INFLUENZA TYPE A Negative For Type A (NEGATIVE); INFLUENZA TYPE B Negative For Type B (NEGATIVE)
[2023-06-29 10:56] LABS: LYMPHOCYTES % (MANUAL) 7 % (22-44); MAN.DIFF COMMENT-IMPRESSION MANUAL DIFFERENTIAL; MONOCYTES % (MANUAL) 4 % (2-9); PLATELET MORPHOLOGY COMMENT ADEQUATE; REACTIVE LYMPHOCYTES 2 % (0-0); SEGMENTED NEUTROPHILS % 87 % (40-70); TOTAL CELLS COUNTED 100
[2023-06-29] MEDS: CEFTRIAXONE 2GM VIAL IVPB ONE (11:18)
[2023-06-29] MEDS ORDERED: ACETAMINOPHEN 325 MG TAB PO PRN (13:30)
[2023-06-29] MEDS ORDERED: ONDANSETRON 4MG INJ IVP PRN (13:30)
[2023-06-29] MEDS ORDERED: CLONIDINE HCL 0.1 MG TABLET PO PRN (13:30)
[2023-06-29] MEDS ORDERED: LACTULOSE 20 GM/30 ML UDCUP PO PRN (13:30)
[2023-06-29] MEDS ORDERED: HYDROCODONE/ACETAMINOPHEN 5/325 MG TAB PO PRN (13:30)
[2023-06-29] MEDS ORDERED: HYDRALAZINE 20MG/ML VIAL IV PRN (13:30)
[2023-06-29] MEDS: AMOXICILLIN 500 MG CAPSULE PO SCH (13:39)
[2023-06-29 17:55] VITALS: BP 129/64; PULSE 102; RESP 20
[2023-06-29 18:16] LABS: BODY FLUID RBC 345 /cu. mm.; BODY FLUID WBC 79 /cu. mm.
[2023-06-29 18:17] LABS: APPEARANCE BODY FLUID SLIGHTLY CLOUDY (CLEAR); COLOR,BODY FLUID YELLOW (LT YELLOW); SPECIMENTYPE,BODY FLUID PLEURAL; TOTAL VOLUME,BODY FLUID 1500 mL
[2023-06-29 18:30] VITALS: O2SAT 97
[2023-06-29 19:24] LABS: BF EOSINOPHIL 1 %; BF LYMPHOCYTE 38 %; BF MACROPHAGE 41; BF MONOCYTE 3 %; BF TOTAL CELLS COUNTED 100
[2023-06-29 20:00] VITALS: O2SAT 98
[2023-06-29 20:15] VITALS: BP 111/58; PULSE 97; RESP 16
[2023-06-29] MEDS: DOCUSATE SODIUM 100 MG CAP PO PRN (22:32)
[2023-06-30] VITALS (7 sets, daily range): BP systolic 120–150; BP diastolic 67–82; PULSE 73–126; RESP 17–22; O2SAT 98
[2023-06-30 04:54] LABS: BASOPHILS # (AUTO) 0.03 K/uL (0.00-0.20); BASOPHILS % (AUTO) 0.3 % (0.0-5.0); EOSINOPHILS % (AUTO) 4.3 % (0.0-8.0); HEMATOCRIT 28.5 % (36-48); IMMATURE GRANULOCYTE ABSOLUTE 0.04 K/uL (0-1); LYMPHOCYTES # (AUTO) 0.7 K/uL (1.0-4.8); MEAN CORPUSCULAR HEMOGLOBIN 35.9 pg (27.0-33.0); MEAN CORPUSCULAR VOLUME 108.8 fL (79-99); MONOCYTES # (AUTO) 0.8 K/uL (0.1-1.0); NEUTROPHILS # (AUTO) 7.4 K/uL (1.8-7.7); PLATELET COUNT (AUTO) 183 K/uL (130-400); RED BLOOD CELL COUNT(AUTO) 2.62 MIL/uL (4.00-5.50); RED CELL DISTRIBUTION WIDTH 14.3 % (11.0-15.5); WHITE BLOOD COUNT (AUTO) 9.3 K/uL (4.8-10.8)
[2023-06-30 05:21] LABS: ALBUMIN 2.2 g/dL (3.5-5.0); BILIRUBIN,TOTAL 0.2 mg/dL (0.2-1.0); CREATININE 4.4 mg/dL (0.5-1.5); PHOSPHORUS 4.4 mg/dL (2.5-4.9); THYROID STIMULATING HORMONE 2.07 uIU/mL (0.36-3.74); TOTAL PROTEIN, SERUM 5.7 g/dL (6.0-8.3)
[2023-06-30] MEDS: PANTOPRAZOLE 40 MG TAB DR PO SCH (09:15)
[2023-06-30] MEDS: ENOXAPARIN SODIUM 30 MG/0.3 ML SQ SCH (09:16)
[2023-06-30] MEDS ORDERED: AMOX500C2 PO ×2 (17:49)
== END 2023-06-30 21:10 | disposition home or self-care (01) ==
LOC: EDH 09:21 → EDHIP 13:14 → 4CH 16:56
PROVIDERS: ADMIT Internal Medicine Critical Care Medicine; ATTEND Internal Medicine Critical Care Medicine
DX: J90 Pleural effusion, not elsewhere classified (principal); Z20.822 Contact with and (suspected) exposure to COVID-19; E87.70 Fluid overload, unspecified; J02.0 Streptococcal pharyngitis; J96.21 Acute and chronic respiratory failure with hypoxia; I34.0 Nonrheumatic mitral (valve) insufficiency; R64 Cachexia; J98.11 Atelectasis; I13.2 Hypertensive heart and chronic kidney disease with heart failure and with stage 5 chronic kidney disease, or end stage renal disease; E11.22 Type 2 diabetes mellitus with diabetic chronic kidney disease; I50.33 Acute on chronic diastolic (congestive) heart failure; N18.6 End stage renal disease; D63.1 Anemia in chronic kidney disease; I48.20 Chronic atrial fibrillation, unspecified; I25.10 Atherosclerotic heart disease of native coronary artery without angina pectoris; Z90.710 Acquired absence of both cervix and uterus; Z79.01 Long term (current) use of anticoagulants; Z99.2 Dependence on renal dialysis; Z91.199 Patient's noncompliance with other medical treatment and regimen due to unspecified reason; Z79.899 Other long term (current) drug therapy
CPT/HCPCS: 96365; 99285; 84484; 80048; 85025 ×2; 89051; 85610; 85730; 87071; 87880; 87420; 87205; 87804 ×2; 82948 ×5; 83605; 87426; 36415 ×2; 71045 ×3; 93005; 94640; 32555; 96372; 84443; 83735; 84100; 80061; 80053; 86850; 86900; 86901; G0378 ×32; J0696; C1729; J1650

== ENCOUNTER → 2023-07-02 | Outpatient (CLI) | payer OTHER ==
[~2023-07-02] MED LIST changes: +AMOX500C2 PO; +DILT180C77 PO; +DOCU100C33 PO; -FLUT16H EN; +METO100T14 PO; -MUPI22OI2 TP; -ONDA-104 PO; -PETR1BAN16 TP; -POLY1BAN TP; -[UNRECOGNIZED DRUG - CODE] TP; -[UNRECOGNIZED DRUG - CODE] TP
== END | disposition home or self-care (01) ==
LOC: RAH 07:40
PROVIDERS: ATTEND Family Medicine
DX: J90 Pleural effusion, not elsewhere classified (principal); J96.11 Chronic respiratory failure with hypoxia; I27.20 Pulmonary hypertension, unspecified; E11.22 Type 2 diabetes mellitus with diabetic chronic kidney disease; I13.2 Hypertensive heart and chronic kidney disease with heart failure and with stage 5 chronic kidney disease, or end stage renal disease; N18.6 End stage renal disease; I50.42 Chronic combined systolic (congestive) and diastolic (congestive) heart failure; I48.91 Unspecified atrial fibrillation; E66.3 Overweight; I25.2 Old myocardial infarction; R53.83 Other fatigue; E11.51 Type 2 diabetes mellitus with diabetic peripheral angiopathy without gangrene; J44.9 Chronic obstructive pulmonary disease, unspecified; K21.9 Gastro-esophageal reflux disease without esophagitis; M81.0 Age-related osteoporosis without current pathological fracture; F41.9 Anxiety disorder, unspecified; G47.00 Insomnia, unspecified; E78.2 Mixed hyperlipidemia; F32.9 Major depressive disorder, single episode, unspecified; F32.5 Major depressive disorder, single episode, in full remission; M10.9 Gout, unspecified; I87.2 Venous insufficiency (chronic) (peripheral); Z79.01 Long term (current) use of anticoagulants; Z79.899 Other long term (current) drug therapy; Z98.890 Other specified postprocedural states; Z90.49 Acquired absence of other specified parts of digestive tract; Z90.710 Acquired absence of both cervix and uterus; Z98.891 History of uterine scar from previous surgery; Z82.49 Family history of ischemic heart disease and other diseases of the circulatory system; Z83.3 Family history of diabetes mellitus; Z80.0 Family history of malignant neoplasm of digestive organs; Z68.1 Body mass index [BMI] 19.9 or less, adult; Z99.2 Dependence on renal dialysis
CPT/HCPCS: 32555; 71045; C1729

== ENCOUNTER → 2023-07-05 | Outpatient (CLI) | payer OTHER | END | disposition home or self-care (01) | LOC: WHH 08:34 | PROVIDERS: ATTEND Nurse Practitioner Family | DX: S80.211D Abrasion, right knee, subsequent encounter (principal); S81.001D Unspecified open wound, right knee, subsequent encounter; S81.002D Unspecified open wound, left knee, subsequent encounter; E11.622 Type 2 diabetes mellitus with other skin ulcer; L97.221 Non-pressure chronic ulcer of left calf limited to breakdown of skin; E83.59 Other disorders of calcium metabolism; R21 Rash and other nonspecific skin eruption; E11.22 Type 2 diabetes mellitus with diabetic chronic kidney disease; I12.0 Hypertensive chronic kidney disease with stage 5 chronic kidney disease or end stage renal disease; N18.6 End stage renal disease; I48.91 Unspecified atrial fibrillation; I25.10 Atherosclerotic heart disease of native coronary artery without angina pectoris; I25.2 Old myocardial infarction; J44.9 Chronic obstructive pulmonary disease, unspecified; K21.9 Gastro-esophageal reflux disease without esophagitis; Z99.2 Dependence on renal dialysis; Z90.710 Acquired absence of both cervix and uterus; Z95.810 Presence of automatic (implantable) cardiac defibrillator; Z90.49 Acquired absence of other specified parts of digestive tract; Z79.01 Long term (current) use of anticoagulants; Z79.899 Other long term (current) drug therapy; W19.XXXD Unspecified fall, subsequent encounter | CPT/HCPCS: G0463 ==

== ENCOUNTER → 2023-07-09 | Outpatient (CLI) | payer OTHER | END | disposition home or self-care (01) | LOC: RAH 07:35 | PROVIDERS: ATTEND Family Medicine | DX: J90 Pleural effusion, not elsewhere classified (principal); J96.11 Chronic respiratory failure with hypoxia; I27.20 Pulmonary hypertension, unspecified; E11.22 Type 2 diabetes mellitus with diabetic chronic kidney disease; I13.2 Hypertensive heart and chronic kidney disease with heart failure and with stage 5 chronic kidney disease, or end stage renal disease; N18.6 End stage renal disease; I50.42 Chronic combined systolic (congestive) and diastolic (congestive) heart failure; I48.91 Unspecified atrial fibrillation; E66.3 Overweight; I25.2 Old myocardial infarction; R53.83 Other fatigue; E11.51 Type 2 diabetes mellitus with diabetic peripheral angiopathy without gangrene; J44.9 Chronic obstructive pulmonary disease, unspecified; K21.9 Gastro-esophageal reflux disease without esophagitis; M81.0 Age-related osteoporosis without current pathological fracture; F41.9 Anxiety disorder, unspecified; G47.00 Insomnia, unspecified; E78.2 Mixed hyperlipidemia; F32.5 Major depressive disorder, single episode, in full remission; M10.9 Gout, unspecified; I87.2 Venous insufficiency (chronic) (peripheral); Z79.01 Long term (current) use of anticoagulants; Z98.890 Other specified postprocedural states; Z79.899 Other long term (current) drug therapy; Z90.49 Acquired absence of other specified parts of digestive tract; Z90.710 Acquired absence of both cervix and uterus; Z98.891 History of uterine scar from previous surgery; Z82.49 Family history of ischemic heart disease and other diseases of the circulatory system; Z83.3 Family history of diabetes mellitus; Z80.0 Family history of malignant neoplasm of digestive organs; Z68.1 Body mass index [BMI] 19.9 or less, adult; Z99.2 Dependence on renal dialysis | CPT/HCPCS: 32555; 71045; C1729 ==

== ENCOUNTER → 2023-07-16 | Outpatient (CLI) | payer OTHER | END | disposition home or self-care (01) | LOC: RAH 07:33 | PROVIDERS: ATTEND Family Medicine | DX: J90 Pleural effusion, not elsewhere classified (principal); J96.11 Chronic respiratory failure with hypoxia; I27.20 Pulmonary hypertension, unspecified; E11.22 Type 2 diabetes mellitus with diabetic chronic kidney disease; I13.2 Hypertensive heart and chronic kidney disease with heart failure and with stage 5 chronic kidney disease, or end stage renal disease; N18.6 End stage renal disease; I50.42 Chronic combined systolic (congestive) and diastolic (congestive) heart failure; I48.91 Unspecified atrial fibrillation; E66.3 Overweight; I25.2 Old myocardial infarction; E11.51 Type 2 diabetes mellitus with diabetic peripheral angiopathy without gangrene; J44.9 Chronic obstructive pulmonary disease, unspecified; M81.0 Age-related osteoporosis without current pathological fracture; F41.9 Anxiety disorder, unspecified; G47.00 Insomnia, unspecified; E78.2 Mixed hyperlipidemia; F32.5 Major depressive disorder, single episode, in full remission; M10.9 Gout, unspecified; I87.2 Venous insufficiency (chronic) (peripheral); Z79.01 Long term (current) use of anticoagulants; Z79.899 Other long term (current) drug therapy; Z98.890 Other specified postprocedural states; Z90.49 Acquired absence of other specified parts of digestive tract; Z90.710 Acquired absence of both cervix and uterus; Z98.891 History of uterine scar from previous surgery; Z82.49 Family history of ischemic heart disease and other diseases of the circulatory system; Z83.3 Family history of diabetes mellitus; Z80.0 Family history of malignant neoplasm of digestive organs; Z68.1 Body mass index [BMI] 19.9 or less, adult | CPT/HCPCS: 32555; 71045; C1729 ==

== ENCOUNTER → 2023-07-19 | Outpatient (CLI) | payer OTHER ==
[~2023-07-19] MED LIST changes: +DILT120C12 PO; +LIDOCAINE HCL 4% LTA SOL 4 ML VIAL TP ONE; +METO-409 PO; +ONDA-104 PO
== END | disposition home or self-care (01) ==
LOC: WHH 08:37
PROVIDERS: ATTEND Nurse Practitioner Family
DX: S80.211D Abrasion, right knee, subsequent encounter (principal); S81.001D Unspecified open wound, right knee, subsequent encounter; S81.002D Unspecified open wound, left knee, subsequent encounter; E11.622 Type 2 diabetes mellitus with other skin ulcer; L97.221 Non-pressure chronic ulcer of left calf limited to breakdown of skin; E83.59 Other disorders of calcium metabolism; E11.22 Type 2 diabetes mellitus with diabetic chronic kidney disease; I12.0 Hypertensive chronic kidney disease with stage 5 chronic kidney disease or end stage renal disease; N18.6 End stage renal disease; I48.91 Unspecified atrial fibrillation; R21 Rash and other nonspecific skin eruption; J44.9 Chronic obstructive pulmonary disease, unspecified; I25.10 Atherosclerotic heart disease of native coronary artery without angina pectoris; I25.2 Old myocardial infarction; K21.9 Gastro-esophageal reflux disease without esophagitis; Z99.2 Dependence on renal dialysis; Z90.710 Acquired absence of both cervix and uterus; Z95.810 Presence of automatic (implantable) cardiac defibrillator; Z90.49 Acquired absence of other specified parts of digestive tract; Z79.01 Long term (current) use of anticoagulants; Z79.899 Other long term (current) drug therapy; W19.XXXD Unspecified fall, subsequent encounter
CPT/HCPCS: G0463

== ENCOUNTER → 2023-07-23 | Outpatient (CLI) | payer OTHER ==
[~2023-07-23] MED LIST changes: +ATOR40TA69 PO; +CYAN-52 PO; +DILT120C78 PO; +FERR324T4 PO; +FOLI0.8T22 PO; +LEVO25TA9 PO; -LIDOCAINE HCL 4% LTA SOL 4 ML VIAL TP ONE; +MIDO10TA PO; +Midodrine Hcl PO; +ONDA4TAB10 PO; +PRED20TA3 PO; +VERA80TA11 PO
== END | disposition home or self-care (01) ==
LOC: RAH 07:34
PROVIDERS: ATTEND Family Medicine
DX: I50.9 Heart failure, unspecified (principal); N18.5 Chronic kidney disease, stage 5; J96.11 Chronic respiratory failure with hypoxia; J90 Pleural effusion, not elsewhere classified
CPT/HCPCS: 32555; 71045; C1729

== ENCOUNTER → 2023-08-02 | Outpatient (CLI) | payer OTHER ==
[~2023-08-02] MED LIST changes: -AMOX500C2 PO; -ATOR40TA69 PO; -CYAN-52 PO; -DILT120C78 PO; -DILT180C77 PO; -FERR324T4 PO; -LEVO25TA9 PO; -METO100T14 PO; -Midodrine Hcl PO; -VERA80TA11 PO
== END | disposition home or self-care (01) ==
LOC: WHH 08:14
PROVIDERS: ATTEND Nurse Practitioner Family
DX: S80.211D Abrasion, right knee, subsequent encounter (principal); S81.001D Unspecified open wound, right knee, subsequent encounter; S81.002D Unspecified open wound, left knee, subsequent encounter; E11.628 Type 2 diabetes mellitus with other skin complications; E11.22 Type 2 diabetes mellitus with diabetic chronic kidney disease; I12.0 Hypertensive chronic kidney disease with stage 5 chronic kidney disease or end stage renal disease; N18.6 End stage renal disease; E83.59 Other disorders of calcium metabolism; I48.91 Unspecified atrial fibrillation; J44.9 Chronic obstructive pulmonary disease, unspecified; I25.10 Atherosclerotic heart disease of native coronary artery without angina pectoris; I25.2 Old myocardial infarction; K21.9 Gastro-esophageal reflux disease without esophagitis; Z99.2 Dependence on renal dialysis; Z90.710 Acquired absence of both cervix and uterus; Z95.810 Presence of automatic (implantable) cardiac defibrillator; Z90.49 Acquired absence of other specified parts of digestive tract; Z79.01 Long term (current) use of anticoagulants; Z79.899 Other long term (current) drug therapy; W19.XXXD Unspecified fall, subsequent encounter
CPT/HCPCS: G0463

== ENCOUNTER 2023-08-03 23:58 | Inpatient (IN) | payer OTHER ==
[~2023-08-03 23:58] MED LIST changes: -FOLI0.8T22 PO; -MIDO10TA PO; -ONDA4TAB10 PO; -PRED20TA3 PO
[2023-08-04 00:58] VITALS: PULSE 101; RESP 20
[2023-08-04] MEDS: ALBUTEROL 0.083% 2.5 MG/3 ML INH IH ONE (00:58)
[2023-08-04] MEDS ORDERED: ONDANSETRON 4MG INJ IVP PRN (01:00)
[2023-08-04] MEDS ORDERED: ACETAMINOPHEN 650 MG SUPPOSITORY RC PRN (01:00)
[2023-08-04] MEDS ORDERED: HYDROCODONE/ACETAMINOPHEN 5/325 MG TAB PO PRN (01:00)
[2023-08-04] MEDS ORDERED: ACETAMINOPHEN 325 MG TAB PO PRN (01:00)
[2023-08-04 01:01] LABS: CREATININE 4.4 mg/dL (0.5-1.0); POTASSIUM 3.5 mmol/L (3.5-5.1)
[2023-08-04 01:05] LABS: ALBUMIN 2.5 g/dL (3.5-5.0); BILIRUBIN,TOTAL 0.2 mg/dL (0.2-1.0); TOTAL PROTEIN, SERUM 6.4 g/dL (6.0-8.3)
[2023-08-04 01:12] LABS: BASOPHILS # (AUTO) 0.05 K/uL (0.00-0.20); BASOPHILS % (AUTO) 0.6 % (0.0-5.0); EOSINOPHILS # (AUTO) 0.31 K/uL (0.00-0.70); EOSINOPHILS % (AUTO) 3.6 % (0.0-8.0); HEMATOCRIT 33.1 % (36-48); IMMATURE GRANULOCYTE ABSOLUTE 0.02 K/uL (0-1); LYMPHOCYTES # (AUTO) 0.7 K/uL (1.0-4.8); LYMPHOCYTES % (AUTO) 8.1 % (21.0-51.0); MEAN CORPUSCULAR HEMOGLOBIN 35.1 pg (27.0-33.0); MEAN CORPUSCULAR HGB CONC 31.4 g/dL (32.0-36.0); MEAN CORPUSCULAR VOLUME 111.8 fL (79-99); MONOCYTES # (AUTO) 0.6 K/uL (0.1-1.0); NEUTROPHILS # (AUTO) 6.9 K/uL (1.8-7.7); NEUTROPHILS % (AUTO) 80.5 % (40.0-77.0); PLATELET COUNT (AUTO) 220 K/uL (130-400); RED BLOOD CELL COUNT(AUTO) 2.96 MIL/uL (4.00-5.50); RED CELL DISTRIBUTION WIDTH 13.7 % (11.0-15.5); WHITE BLOOD COUNT (AUTO) 8.6 K/uL (4.8-10.8)
[2023-08-04 01:32] LABS: B-TYPE NATRIURETIC PEPTIDE 2020 pg/mL (0-100)
[2023-08-04] MEDS: IPRATROPIUM/ALBUTEROL SULFATE 3 ML SOLUTION IH SCH (01:33)
[2023-08-04] MEDS ORDERED: ONDA4TAB10 PO (01:57)
[2023-08-04] MEDS ORDERED: PANT40TA54 PO (01:57)
[2023-08-04] MEDS ORDERED: NITR0.4T50 SL (01:57)
[2023-08-04] MEDS ORDERED: ATOR40TA71 PO (01:57)
[2023-08-04] MEDS ORDERED: PRED20TA3 PO (01:57)
[2023-08-04] MEDS ORDERED: AURYXIA PO (01:57)
[2023-08-04] MEDS ORDERED: FOLI0.8T22 PO (01:57)
[2023-08-04] MEDS ORDERED: APIX2.5T PO (01:57)
[2023-08-04 07:41] VITALS: PULSE 91; RESP 20; RESP 24; O2SAT 99
[2023-08-04 07:47] VITALS: PULSE 91; RESP 24
[2023-08-04 08:35] LABS: SARS-CoV-2, RNA, NAAT NEGATIVE SARS CoV-2 (NEGATIVE)
[2023-08-04 08:42] LABS: INFLUENZA TYPE A Negative For Type A (NEGATIVE); INFLUENZA TYPE B Negative For Type B (NEGATIVE)
[2023-08-04] MEDS: DOCUSATE SODIUM 100 MG CAP PO SCH (08:57)
[2023-08-04] MEDS: FERROUS SULFATE 325 MG TABLET.DR PO SCH (08:59)
[2023-08-04] MEDS: PANTOPRAZOLE 40 MG TAB DR PO SCH (08:59)
[2023-08-04 12:23] LABS: INR 0.98 (0.85-1.15); PROTHROMBIN TIME 11.6 SEC (9.6-11.6)
[2023-08-04 12:24] LABS: PARTIAL THROMBOPLASTIN TIME 35.6 SEC (26.3-35.5)
[2023-08-04 13:42] LABS: APPEARANCE BODY FLUID CLEAR (CLEAR); COLOR,BODY FLUID YELLOW (LT YELLOW); SPECIMENTYPE,BODY FLUID PLEURAL; TOTAL VOLUME,BODY FLUID 1800 mL
[2023-08-04 13:50] LABS: BODY FLUID RBC 1718 /cu. mm.; BODY FLUID WBC 220 /cu. mm.
[2023-08-04] MEDS ORDERED: MIDO10TA PO (14:44)
[2023-08-04] MEDS ORDERED: NITROGLYCERIN 0.4 MG SL TAB SL PRN (15:30)
[2023-08-04] MEDS ORDERED: DOCUSATE SODIUM 100 MG CAP PO PRN (15:30)
[2023-08-04] MEDS ORDERED: MIDODRINE HCL 5 MG TABLET PO SCH (15:30)
[2023-08-04 17:18] LABS: BF LYMPHOCYTE 19 %; BF MACROPHAGE 51; BF MONOCYTE 2 %; BF OTHER CELLS 1; BF TOTAL CELLS COUNTED 100
[2023-08-04] MEDS: AURYXIA 210 MG PO SCH (19:10)
[2023-08-04 20:05] VITALS: BP 103/54; PULSE 119; RESP 18
[2023-08-04] MEDS: APIXABAN 2.5 MG TABLET PO SCH (20:43)
[2023-08-04] MEDS: DILTIAZEM 120MG SR CAP PO SCH (20:43)
[2023-08-04 23:41] VITALS: PULSE 89; RESP 18
[2023-08-04 23:43] VITALS: PULSE 89; RESP 18; O2SAT 99
[2023-08-05] VITALS (28 sets, daily range): BP systolic 89–119; BP diastolic 45–79; PULSE 64–127; RESP 16–20; TEMP 98.2; O2SAT 99–100
[2023-08-05 05:36] LABS: BASOPHILS # (AUTO) 0.04 K/uL (0.00-0.20); BASOPHILS % (AUTO) 0.4 % (0.0-5.0); EOSINOPHILS # (AUTO) 0.34 K/uL (0.00-0.70); EOSINOPHILS % (AUTO) 3.7 % (0.0-8.0); HEMATOCRIT 34.1 % (36-48); IMMATURE GRANULOCYTE ABSOLUTE 0.04 K/uL (0-1); LYMPHOCYTES # (AUTO) 0.7 K/uL (1.0-4.8); LYMPHOCYTES % (AUTO) 7.2 % (21.0-51.0); MEAN CORPUSCULAR HEMOGLOBIN 34.2 pg (27.0-33.0); MEAN CORPUSCULAR HGB CONC 29.9 g/dL (32.0-36.0); MEAN CORPUSCULAR VOLUME 114.4 fL (79-99); MONOCYTES # (AUTO) 0.7 K/uL (0.1-1.0); MONOCYTES % (AUTO) 7.5 % (3.0-13.0); NEUTROPHILS # (AUTO) 7.4 K/uL (1.8-7.7); NEUTROPHILS % (AUTO) 80.8 % (40.0-77.0); PLATELET COUNT (AUTO) 203 K/uL (130-400); RED BLOOD CELL COUNT(AUTO) 2.98 MIL/uL (4.00-5.50); RED CELL DISTRIBUTION WIDTH 13.4 % (11.0-15.5); WHITE BLOOD COUNT (AUTO) 9.1 K/uL (4.8-10.8)
[2023-08-05 05:48] LABS: ALBUMIN 2.2 g/dL (3.5-5.0); BILIRUBIN,TOTAL 0.3 mg/dL (0.2-1.0); CREATININE 6.2 mg/dL (0.5-1.0); PHOSPHORUS 5.8 mg/dL (2.5-4.9); POTASSIUM 3.4 mmol/L (3.5-5.1); TOTAL PROTEIN, SERUM 5.7 g/dL (6.0-8.3)
[2023-08-05] MEDS ORDERED: MIDODRINE HCL 5 MG TABLET PO SCH (08:50)
[2023-08-05] MEDS ORDERED: METOPROLOL SUCCINATE 50 MG TAB.SR.24H PO SCH (09:00)
[2023-08-05] MEDS ORDERED: PANTOPRAZOLE 40 MG TAB DR PO SCH (09:00)
[2023-08-05] MEDS: MIDODRINE HCL 5 MG TABLET PO SCH (09:25)
[2023-08-05] MEDS: MIDODRINE HCL 5 MG TABLET PO ONE (09:30)
[2023-08-05 13:37] LABS: ABG BASE EXCESS 3.9 mmol/L (-2.0-3.0); ABG HCO3 28.3 mmol/L (21.0-28.0); ABG OXYGEN SATURATION 98.1 % (95.0-99.0); ABG PCO2 42 mmHg (32-45); ABG PH 7.449 (7.35-7.450); PO2, ARTERIAL BG 107.5 mmHg (83.0-108.0); VENT MODE, BG NC 2L (ROOM AIR)
[2023-08-05] MEDS: METOPROLOL TARTRATE 50 MG TAB PO ONE (14:06)
[2023-08-05] MEDS: FOLIC ACID 1 MG TABLET PO SCH (14:06)
[2023-08-05] MEDS: Vitamin B Complex/Vit C/Folic Acid PO SCH (14:07)
[2023-08-05] MEDS: ATORVASTATIN 40 MG TABLET PO SCH (14:07)
[2023-08-05] MEDS: CYANOCOBALAMIN (VITAMIN B-12) 1,000 MCG TABLET PO SCH (14:09)
[2023-08-05] MEDS: AMIODARONE 900MG VIAL 150 MG in DEXTROSE 5%-WATER 100 ML IV SCH (18:02)
[2023-08-05] MEDS: AMIODARONE 900MG VIAL 360 MG in DEXTROSE 5%-WATER 200 ML IV SCH (18:03)
[2023-08-05] MEDS: BALSAM PERU/CASTOR OIL 60 GM TUBE TP SCH (20:09)
[2023-08-05] MEDS: AMIODARONE 900MG VIAL 540 MG in DEXTROSE 5%-WATER 300 ML IV SCH (23:55)
[2023-08-06] VITALS (12 sets, daily range): BP systolic 92–114; BP diastolic 50–72; PULSE 74–103; RESP 16–20; O2SAT 98–100
[2023-08-06 03:53] LABS: BASOPHILS # (AUTO) 0.04 K/uL (0.00-0.20); BASOPHILS % (AUTO) 0.5 % (0.0-5.0); EOSINOPHILS # (AUTO) 0.29 K/uL (0.00-0.70); EOSINOPHILS % (AUTO) 3.5 % (0.0-8.0); HEMATOCRIT 29.7 % (36-48); IMMATURE GRANULOCYTE ABSOLUTE 0.03 K/uL (0-1); LYMPHOCYTES # (AUTO) 0.8 K/uL (1.0-4.8); LYMPHOCYTES % (AUTO) 9.4 % (21.0-51.0); MEAN CORPUSCULAR HEMOGLOBIN 35.1 pg (27.0-33.0); MEAN CORPUSCULAR HGB CONC 31.6 g/dL (32.0-36.0); MEAN CORPUSCULAR VOLUME 110.8 fL (79-99); MONOCYTES # (AUTO) 0.7 K/uL (0.1-1.0); MONOCYTES % (AUTO) 8.3 % (3.0-13.0); NEUTROPHILS # (AUTO) 6.5 K/uL (1.8-7.7); NEUTROPHILS % (AUTO) 77.9 % (40.0-77.0); PLATELET COUNT (AUTO) 185 K/uL (130-400); RED BLOOD CELL COUNT(AUTO) 2.68 MIL/uL (4.00-5.50); RED CELL DISTRIBUTION WIDTH 13.6 % (11.0-15.5); WHITE BLOOD COUNT (AUTO) 8.3 K/uL (4.8-10.8)
[2023-08-06 04:13] LABS: ALBUMIN 2.1 g/dL (3.5-5.0); BILIRUBIN,TOTAL 0.3 mg/dL (0.2-1.0); CREATININE 4.2 mg/dL (0.5-1.0); POTASSIUM 3.6 mmol/L (3.5-5.1); TOTAL PROTEIN, SERUM 5.5 g/dL (6.0-8.3)
[2023-08-06] MEDS ORDERED: METOPROLOL TARTRATE 50 MG TAB PO SCH (09:00)
[2023-08-06] MEDS: VERAPAMIL HCL 80 MG TABLET PO SCH (10:20)
[2023-08-06] MEDS: EPOETIN ALFA-EPBX (NON-ESRD) 10,000 UNIT/ML VIAL SQ SCH (20:58)
[2023-08-07] VITALS (32 sets, daily range): BP systolic 78–137; BP diastolic 36–78; PULSE 78–129; RESP 16–22; TEMP 97.8–98; O2SAT 98–100
[2023-08-07 04:08] LABS: BASOPHILS # (AUTO) 0.03 K/uL (0.00-0.20); BASOPHILS % (AUTO) 0.3 % (0.0-5.0); EOSINOPHILS # (AUTO) 0.38 K/uL (0.00-0.70); EOSINOPHILS % (AUTO) 4.2 % (0.0-8.0); HEMATOCRIT 29.4 % (36-48); IMMATURE GRANULOCYTE ABSOLUTE 0.04 K/uL (0-1); LYMPHOCYTES # (AUTO) 0.7 K/uL (1.0-4.8); LYMPHOCYTES % (AUTO) 7.2 % (21.0-51.0); MEAN CORPUSCULAR HEMOGLOBIN 35.1 pg (27.0-33.0); MEAN CORPUSCULAR HGB CONC 32.3 g/dL (32.0-36.0); MEAN CORPUSCULAR VOLUME 108.5 fL (79-99); MONOCYTES # (AUTO) 0.7 K/uL (0.1-1.0); NEUTROPHILS # (AUTO) 7.3 K/uL (1.8-7.7); NEUTROPHILS % (AUTO) 79.9 % (40.0-77.0); PLATELET COUNT (AUTO) 210 K/uL (130-400); RED BLOOD CELL COUNT(AUTO) 2.71 MIL/uL (4.00-5.50); RED CELL DISTRIBUTION WIDTH 13.8 % (11.0-15.5); WHITE BLOOD COUNT (AUTO) 9.1 K/uL (4.8-10.8)
[2023-08-07 04:21] LABS: INR 0.95 (0.85-1.15); PROTHROMBIN TIME 11.3 SEC (9.6-11.6)
[2023-08-07 04:22] LABS: PARTIAL THROMBOPLASTIN TIME 37.9 SEC (26.3-35.5)
[2023-08-07 04:35] LABS: ALBUMIN 2.3 g/dL (3.5-5.0); BILIRUBIN,TOTAL 0.3 mg/dL (0.2-1.0); CREATININE 5.8 mg/dL (0.5-1.0); MAGNESIUM 1.8 mg/dL (1.80-2.40); POTASSIUM 3.7 mmol/L (3.5-5.1); THYROID STIMULATING HORMONE 4.3 uIU/mL (0.36-3.74); TOTAL PROTEIN, SERUM 5.9 g/dL (6.0-8.3)
[2023-08-07] MEDS: VERAPAMIL HCL 80 MG TABLET PO SCH ×2 (11:11→16:38)
[2023-08-07] MEDS: ALBUMIN (HUMAN) 25% 100 ML IV ONE (13:30)
[2023-08-07] MEDS: AMIODARONE 900MG VIAL 540 MG in DEXTROSE 5%-WATER 300 ML IV SCH (14:30)
[2023-08-07] MEDS: MIDODRINE HCL 5 MG TABLET PO SCH (14:53)
[2023-08-07] MEDS: AMIODARONE 900MG VIAL 150 MG in DEXTROSE 5%-WATER 100 ML IV SCH (15:06)
[2023-08-07] MEDS: AMIODARONE 900MG VIAL 360 MG in DEXTROSE 5%-WATER 200 ML IV SCH (15:34)
[2023-08-07] MEDS: LEVOTHYROXINE 25 MCG TABLET PO SCH (16:38)
[2023-08-07] MEDS: MAGNESIUM 2GM PREMIX 50ML 50 ML IV SCH (18:45)
[2023-08-08] VITALS (28 sets, daily range): BP systolic 96–144; BP diastolic 42–77; PULSE 51–108; RESP 18–40; O2SAT 96–100
[2023-08-08 04:14] LABS: ABG BASE EXCESS -0.4 mmol/L (-2.0-3.0); ABG HCO3 27.3 mmol/L (21.0-28.0); ABG PCO2 61 mmHg (32-45); ABG PH 7.268 (7.35-7.450); CARBON MONOXIDE 0.5; DEVICE COMMENT N.C 3 LPM; PO2, ARTERIAL BG 77.7 mmHg (83.0-108.0); VENT MODE, BG RN CARLA RR (ROOM AIR)
[2023-08-08 05:37] LABS: HEMATOCRIT 32.2 % (36-48); MEAN CORPUSCULAR HEMOGLOBIN 34.7 pg (27.0-33.0); MEAN CORPUSCULAR HGB CONC 31.1 g/dL (32.0-36.0); MEAN CORPUSCULAR VOLUME 111.8 fL (79-99); RED BLOOD CELL COUNT(AUTO) 2.88 MIL/uL (4.00-5.50); RED CELL DISTRIBUTION WIDTH 13.8 % (11.0-15.5); WHITE BLOOD COUNT (AUTO) 10.6 K/uL (4.8-10.8)
[2023-08-08 05:45] LABS: INR 0.97 (0.85-1.15); PROTHROMBIN TIME 11.5 SEC (9.6-11.6)
[2023-08-08 05:47] LABS: PARTIAL THROMBOPLASTIN TIME 24.5 SEC (26.3-35.5)
[2023-08-08 05:58] LABS: BILIRUBIN,TOTAL 0.4 mg/dL (0.2-1.0); CREATININE 4.3 mg/dL (0.5-1.0); MAGNESIUM 2.5 mg/dL (1.80-2.40); POTASSIUM 4.3 mmol/L (3.5-5.1); TOTAL PROTEIN, SERUM 6.6 g/dL (6.0-8.3)
[2023-08-08 06:33] LABS: ABG BASE EXCESS 2.2 mmol/L (-2.0-3.0); ABG OXYGEN SATURATION 92.3 % (95.0-99.0); ABG PCO2 56 mmHg (32-45); CARBON MONOXIDE 0.4; HHb 7.7; PO2, ARTERIAL BG 68.3 mmHg (83.0-108.0); VENT MODE, BG BIPAP10-5 (ROOM AIR)
[2023-08-08 11:20] LABS: TOTAL PROTEIN, SERUM 6.6 g/dL (6.0-8.3)
[2023-08-08] MEDS: ALBUMIN (HUMAN) 25% 100 ML IV ONE (13:04)
[2023-08-08] MEDS: IPRATROPIUM 0.5 MG/2.5 ML INH IH SCH (14:11)
[2023-08-08] MEDS: ACETYLCYSTEINE 20% 200MG/ML 4ML VIAL IH SCH (14:11)
[2023-08-08 15:50] LABS: GLUCOSE PLEURAL FLUID 108; PROTEIN PLEURAL FLUID 2.1 mg/dL
[2023-08-08 15:59] LABS: GLUCOSE PLEURAL FLUID 108; PROTEIN PLEURAL FLUID 2.2 mg/dL
[2023-08-08 16:24] LABS: BODY FLUID RBC 10330 /cu. mm.; BODY FLUID WBC 789 /cu. mm.
[2023-08-08] MEDS: APIXABAN 2.5 MG TABLET PO ONE (16:25)
[2023-08-08 16:30] LABS: BODY FLUID RBC 9566 /cu. mm.; BODY FLUID WBC 609 /cu. mm.
[2023-08-08 16:56] LABS: BF LYMPHOCYTE 18 %; BF MACROPHAGE 32; BF MONOCYTE 6 %; BF TOTAL CELLS COUNTED 100
[2023-08-08 16:58] LABS: APPEARANCE BODY FLUID SLIGHTLY CLOUDY (CLEAR); COLOR,BODY FLUID YELLOW (LT YELLOW); SPECIMENTYPE,BODY FLUID PLEURAL; TOTAL VOLUME,BODY FLUID 575 mL
[2023-08-08 17:11] LABS: APPEARANCE BODY FLUID SLIGHTLY CLOUDY (CLEAR); BF LYMPHOCYTE 20 %; BF MACROPHAGE 29; BF MONOCYTE 5 %; BF TOTAL CELLS COUNTED 100; COLOR,BODY FLUID YELLOW (LT YELLOW); SPECIMENTYPE,BODY FLUID PLEURAL
[2023-08-08 17:12] LABS: TOTAL VOLUME,BODY FLUID 1000 mL
[2023-08-08] MEDS: APIXABAN 2.5 MG TABLET PO SCH (21:00)
[2023-08-09] VITALS (18 sets, daily range): BP systolic 90–130; BP diastolic 34–112; PULSE 52–120; RESP 17–24; O2SAT 98–100
[2023-08-09 04:02] LABS: BASOPHILS # (AUTO) 0.05 K/uL (0.00-0.20); BASOPHILS % (AUTO) 0.4 % (0.0-5.0); EOSINOPHILS # (AUTO) 0.13 K/uL (0.00-0.70); EOSINOPHILS % (AUTO) 1.1 % (0.0-8.0); HEMATOCRIT 28.3 % (36-48); IMMATURE GRANULOCYTE ABSOLUTE 0.05 K/uL (0-1); LYMPHOCYTES # (AUTO) 0.6 K/uL (1.0-4.8); LYMPHOCYTES % (AUTO) 4.9 % (21.0-51.0); MEAN CORPUSCULAR HEMOGLOBIN 35.3 pg (27.0-33.0); MEAN CORPUSCULAR HGB CONC 32.2 g/dL (32.0-36.0); MEAN CORPUSCULAR VOLUME 109.7 fL (79-99); MONOCYTES # (AUTO) 0.9 K/uL (0.1-1.0); MONOCYTES % (AUTO) 7.8 % (3.0-13.0); NEUTROPHILS # (AUTO) 9.8 K/uL (1.8-7.7); NEUTROPHILS % (AUTO) 85.4 % (40.0-77.0); PLATELET COUNT (AUTO) 219 K/uL (130-400); RED BLOOD CELL COUNT(AUTO) 2.58 MIL/uL (4.00-5.50); RED CELL DISTRIBUTION WIDTH 13.7 % (11.0-15.5); WHITE BLOOD COUNT (AUTO) 11.5 K/uL (4.8-10.8)
[2023-08-09 04:11] LABS: INR 1.03 (0.85-1.15); PROTHROMBIN TIME 12.1 SEC (9.6-11.6)
[2023-08-09 04:12] LABS: PARTIAL THROMBOPLASTIN TIME 39.7 SEC (26.3-35.5)
[2023-08-09 04:24] LABS: ALBUMIN 2.9 g/dL (3.5-5.0); BILIRUBIN,TOTAL 0.4 mg/dL (0.2-1.0); CREATININE 5.4 mg/dL (0.5-1.0); MAGNESIUM 2.3 mg/dL (1.80-2.40); POTASSIUM 4.6 mmol/L (3.5-5.1); TOTAL PROTEIN, SERUM 6.1 g/dL (6.0-8.3)
[2023-08-09 05:56] LABS: ABG BASE EXCESS -2.5 mmol/L (-2.0-3.0); ABG HCO3 23.3 mmol/L (21.0-28.0); ABG PCO2 44 mmHg (32-45); ABG PH 7.342 (7.35-7.450); VENT MODE, BG NC (ROOM AIR)
[2023-08-10] VITALS (30 sets, daily range): BP systolic 97–157; BP diastolic 53–88; PULSE 61–127; RESP 16–20; TEMP 98.2–98.5; O2SAT 96–100
[2023-08-10] MEDS: IPRATROPIUM 0.5 MG/2.5 ML INH IH SCH (18:39)
[2023-08-10] MEDS: BALSAM PERU/CASTOR OIL 60 GM TUBE TP SCH (20:45)
[2023-08-11 00:10] VITALS: PULSE 70; RESP 23; O2SAT 98
[2023-08-11 03:22] VITALS: BP 126/76; PULSE 71; RESP 25
[2023-08-11 03:44] LABS: BASOPHILS # (AUTO) 0.05 K/uL (0.00-0.20); BASOPHILS % (AUTO) 0.5 % (0.0-5.0); EOSINOPHILS # (AUTO) 0.24 K/uL (0.00-0.70); EOSINOPHILS % (AUTO) 2.4 % (0.0-8.0); IMMATURE GRANULOCYTE ABSOLUTE 0.04 K/uL (0-1); LYMPHOCYTES # (AUTO) 0.5 K/uL (1.0-4.8); LYMPHOCYTES % (AUTO) 5.4 % (21.0-51.0); MEAN CORPUSCULAR HEMOGLOBIN 33.9 pg (27.0-33.0); MEAN CORPUSCULAR VOLUME 109.5 fL (79-99); MONOCYTES # (AUTO) 0.9 K/uL (0.1-1.0); MONOCYTES % (AUTO) 9.2 % (3.0-13.0); NEUTROPHILS # (AUTO) 8.2 K/uL (1.8-7.7); NEUTROPHILS % (AUTO) 82.1 % (40.0-77.0); PLATELET COUNT (AUTO) 249 K/uL (130-400); RED BLOOD CELL COUNT(AUTO) 2.83 MIL/uL (4.00-5.50); RED CELL DISTRIBUTION WIDTH 13.8 % (11.0-15.5)
[2023-08-11 04:14] LABS: CREATININE 4.6 mg/dL (0.5-1.0); POTASSIUM 3.9 mmol/L (3.5-5.1)
[2023-08-11 08:18] VITALS: BP 126/69; PULSE 94; RESP 16
[2023-08-11 10:45] VITALS: O2SAT 100
[2023-08-11 12:18] VITALS: BP 121/57; PULSE 82; RESP 16
[2023-08-11] MEDS ORDERED: CYAN-52 PO (13:19)
[2023-08-11] MEDS ORDERED: LEVO25TA9 PO (13:19)
[2023-08-11] MEDS ORDERED: FERR324T4 PO (13:19)
[2023-08-11] MEDS ORDERED: VERA80TA11 PO (14:08)
[2023-08-11] MEDS ORDERED: Midodrine Hcl PO (14:08)
== END 2023-08-11 14:58 | disposition home or self-care (01) | DRG 291 ==
LOC: EDH 23:58 → EDHIP 08-04 00:43 → OBSVTOIN 08-04 00:43 → 3BH 08-04 17:44 → 2AH 08-05 16:56
PROVIDERS: ADMIT Internal Medicine Critical Care Medicine; ATTEND Internal Medicine Critical Care Medicine
PROC: 0W9930Z Drainage of Right Pleural Cavity with Drainage Device, Percutaneous Approach (ICD-10-PCS; 2023-08-04)
PROC: 5A1D70Z Performance of Urinary Filtration, Intermittent, Less than 6 Hours Per Day (ICD-10-PCS; 2023-08-05)
PROC: 5A1D70Z Performance of Urinary Filtration, Intermittent, Less than 6 Hours Per Day (ICD-10-PCS; 2023-08-07)
PROC: 0W9930Z Drainage of Right Pleural Cavity with Drainage Device, Percutaneous Approach (ICD-10-PCS; principal; 2023-08-08)
PROC: 5A09357 Assistance with Respiratory Ventilation, Less than 24 Consecutive Hours, Continuous Positive Airway Pressure (ICD-10-PCS; 2023-08-08)
PROC: 5A09357 Assistance with Respiratory Ventilation, Less than 24 Consecutive Hours, Continuous Positive Airway Pressure (ICD-10-PCS; 2023-08-09)
PROC: 5A1D70Z Performance of Urinary Filtration, Intermittent, Less than 6 Hours Per Day (ICD-10-PCS; 2023-08-10)
PROC: 5A09357 Assistance with Respiratory Ventilation, Less than 24 Consecutive Hours, Continuous Positive Airway Pressure (ICD-10-PCS; 2023-08-10)
PROC: 5A09357 Assistance with Respiratory Ventilation, Less than 24 Consecutive Hours, Continuous Positive Airway Pressure (ICD-10-PCS; 2023-08-11)
DX: I13.2 Hypertensive heart and chronic kidney disease with heart failure and with stage 5 chronic kidney disease, or end stage renal disease (principal); I50.33 Acute on chronic diastolic (congestive) heart failure; J96.21 Acute and chronic respiratory failure with hypoxia; N18.6 End stage renal disease; I48.21 Permanent atrial fibrillation; R64 Cachexia; J90 Pleural effusion, not elsewhere classified; E11.22 Type 2 diabetes mellitus with diabetic chronic kidney disease; D64.9 Anemia, unspecified; I25.10 Atherosclerotic heart disease of native coronary artery without angina pectoris; I27.20 Pulmonary hypertension, unspecified; I34.0 Nonrheumatic mitral (valve) insufficiency; E03.9 Hypothyroidism, unspecified; Z79.01 Long term (current) use of anticoagulants; Z90.710 Acquired absence of both cervix and uterus; Z91.81 History of falling; Z99.2 Dependence on renal dialysis; Z90.49 Acquired absence of other specified parts of digestive tract; Z79.899 Other long term (current) drug therapy; Z79.84 Long term (current) use of oral hypoglycemic drugs
CPT/HCPCS: 32555; 36415; 36600; 71045; 71250; 76376; 80048; 80053; 82435; 82803; 82945; 82947; 82948; 83605; 83615; 83735; 83880; 83986; 84100; 84132; 84145; 84155; 84157; 84295; 84443; 85018; 85025; 85027; 85610; 85730; 87071; 87116; 87205; 87206; 87635; 87804; 88112; 88305; 89051; 90935; 93005; 93306; 93356; 94640; 94660; 94664; 94667; 94668; C1729; G0378; G0463; J0282; J3475; J7060; J7608; P9046; A6214; Q5106

== ENCOUNTER → 2023-08-13 | Outpatient (CLI) | payer OTHER ==
[~2023-08-13] MED LIST changes: +CYAN-52 PO; -DILT120C12 PO; -DOCU100C33 PO; +FERR324T4 PO; +FOLI0.8T22 PO; -FOLI1TAB85 PO; +LEVO25TA9 PO; -METO-409 PO; +MIDO10TA PO; +Midodrine Hcl PO; -ONDA-104 PO; -SEMA14TA2 PO; +VERA80TA11 PO
== END | disposition home or self-care (01) ==
LOC: RAH 07:36
PROVIDERS: ATTEND Family Medicine
DX: J90 Pleural effusion, not elsewhere classified (principal); J96.11 Chronic respiratory failure with hypoxia; E11.22 Type 2 diabetes mellitus with diabetic chronic kidney disease; I13.2 Hypertensive heart and chronic kidney disease with heart failure and with stage 5 chronic kidney disease, or end stage renal disease; N18.6 End stage renal disease; I25.10 Atherosclerotic heart disease of native coronary artery without angina pectoris; I50.9 Heart failure, unspecified; Z99.2 Dependence on renal dialysis; Z98.890 Other specified postprocedural states
CPT/HCPCS: 32555; 71045; C1729

== ENCOUNTER 2023-08-16 22:07 | Inpatient (IN) | payer OTHER ==
[~2023-08-16] VITALS: Ht 152.4 cm; Wt 50.1 kg
[2023-08-16 23:04] LABS: BASOPHILS # (AUTO) 0.05 K/uL (0.00-0.20); BASOPHILS % (AUTO) 0.4 % (0.0-5.0); EOSINOPHILS # (AUTO) 0.15 K/uL (0.00-0.70); EOSINOPHILS % (AUTO) 1.2 % (0.0-8.0); HEMATOCRIT 29.8 % (36-48); IMMATURE GRANULOCYTE ABSOLUTE 0.06 K/uL (0-1); LYMPHOCYTES # (AUTO) 0.5 K/uL (1.0-4.8); LYMPHOCYTES % (AUTO) 3.5 % (21.0-51.0); MEAN CORPUSCULAR HEMOGLOBIN 35.1 pg (27.0-33.0); MEAN CORPUSCULAR HGB CONC 31.5 g/dL (32.0-36.0); MEAN CORPUSCULAR VOLUME 111.2 fL (79-99); MONOCYTES # (AUTO) 0.8 K/uL (0.1-1.0); MONOCYTES % (AUTO) 6.4 % (3.0-13.0); NEUTROPHILS # (AUTO) 11.4 K/uL (1.8-7.7); PLATELET COUNT (AUTO) 285 K/uL (130-400); RED BLOOD CELL COUNT(AUTO) 2.68 MIL/uL (4.00-5.50); RED CELL DISTRIBUTION WIDTH 13.7 % (11.0-15.5)
[2023-08-16] MEDS: ASPIRIN 325MG TAB PO ONE (23:04)
[2023-08-16] MEDS: NITROGLYCERIN 1GM OINT 1 INCH/1GM TD ONE (23:05)
[2023-08-16 23:17] LABS: CREATININE 5.6 mg/dL (0.5-1.0); POTASSIUM 4.7 mmol/L (3.5-5.1)
[2023-08-16 23:33] VITALS: PULSE 74; RESP 18
[2023-08-16] MEDS: ALBUTEROL 0.083% 2.5 MG/3 ML INH IH ONE (23:33)
[2023-08-17] VITALS (22 sets, daily range): BP systolic 110–142; BP diastolic 55–73; PULSE 71–118; RESP 14–22; TEMP 98–98.2; O2SAT 97–100
[2023-08-17] MEDS ORDERED: ACETAMINOPHEN 650 MG SUPPOSITORY RC PRN (00:30)
[2023-08-17] MEDS ORDERED: ONDANSETRON 4MG INJ IVP PRN (00:30)
[2023-08-17] MEDS ORDERED: TEMAZEPAM 15 MG CAPSULE PO PRN (00:30)
[2023-08-17] MEDS ORDERED: HYDRALAZINE 20MG/ML VIAL IV PRN (00:30)
[2023-08-17] MEDS: CEFEPIME HCL 1 GM VIAL IV SCH (04:54)
[2023-08-17 05:51] LABS: ABG BASE EXCESS -1.6 mmol/L (-2.0-3.0); ABG HCO3 24.8 mmol/L (21.0-28.0); ABG OXYGEN SATURATION 96.5 % (95.0-99.0); ABG PCO2 48 mmHg (32-45); ABG PH 7.329 (7.35-7.450); PO2, ARTERIAL BG 92.5 mmHg (83.0-108.0); VENT MODE, BG NC (ROOM AIR)
[2023-08-17 06:22] LABS: HEMATOCRIT 27.3 % (36-48); MEAN CORPUSCULAR HEMOGLOBIN 34.9 pg (27.0-33.0); MEAN CORPUSCULAR HGB CONC 31.9 g/dL (32.0-36.0); MEAN CORPUSCULAR VOLUME 109.6 fL (79-99); RED BLOOD CELL COUNT(AUTO) 2.49 MIL/uL (4.00-5.50); RED CELL DISTRIBUTION WIDTH 13.7 % (11.0-15.5); WHITE BLOOD COUNT (AUTO) 10.2 K/uL (4.8-10.8)
[2023-08-17 06:32] LABS: CREATININE 5.8 mg/dL (0.5-1.0); MAGNESIUM 2.1 mg/dL (1.80-2.40); POTASSIUM 4.8 mmol/L (3.5-5.1)
[2023-08-17] MEDS: INSULIN HUMULIN R 100 UNIT/ML 3ML SQ SCH (07:15)
[2023-08-17] MEDS ORDERED: NON-FORMULARY MEDICATION 1 EACH (Midodrine HCl 10 MG) PO SCH (08:00)
[2023-08-17] MEDS ORDERED: NITROGLYCERIN 0.4 MG SL TAB SL PRN (08:00)
[2023-08-17] MEDS: FERROUS SULFATE 325 MG TABLET.DR PO SCH (08:12)
[2023-08-17] MEDS: ENOXAPARIN SODIUM 30 MG/0.3 ML SQ SCH (08:12)
[2023-08-17] MEDS: PANTOPRAZOLE 40 MG TAB DR PO SCH (08:12)
[2023-08-17] MEDS: FAMOTIDINE 20MG TAB PO SCH (08:12)
[2023-08-17] MEDS: POLYETHYLENE GLYCOL 3350 17 GM POWD.PACK PO SCH (08:12)
[2023-08-17] MEDS: ATORVASTATIN 40 MG TABLET PO SCH (08:12)
[2023-08-17] MEDS: CYANOCOBALAMIN (VITAMIN B-12) 1,000 MCG TABLET PO SCH (08:12)
[2023-08-17 08:16] LABS: INR 1.06 (0.85-1.15); PROTHROMBIN TIME 12.4 SEC (9.6-11.6)
[2023-08-17 08:17] LABS: PARTIAL THROMBOPLASTIN TIME 39.9 SEC (26.3-35.5)
[2023-08-17] MEDS: Vitamin B Complex/Vit C/Folic Acid PO SCH (08:24)
[2023-08-17] MEDS: VERAPAMIL HCL 80 MG TABLET PO SCH (08:29)
[2023-08-17 08:33] LABS: THYROID STIMULATING HORMONE 2.79 uIU/mL (0.36-3.74); TOTAL PROTEIN, SERUM 6.4 g/dL (6.0-8.3)
[2023-08-17] MEDS ORDERED: NON-FORMULARY MEDICATION 1 EACH (Folic Acid/Vitamin B Comp W-C (Rena-Vite Tablet) 0.8 MG) PO SCH (09:00)
[2023-08-17 09:31] LABS: SARS-CoV-2, RNA, NAAT NEGATIVE SARS CoV-2 (NEGATIVE)
[2023-08-17 09:38] LABS: INFLUENZA TYPE A Negative For Type A (NEGATIVE); INFLUENZA TYPE B Negative For Type B (NEGATIVE)
[2023-08-17 11:18] LABS: GLUCOSE PLEURAL FLUID 115; PROTEIN PLEURAL FLUID 2.6 mg/dL
[2023-08-17] MEDS: AURYXIA 210 MG PO SCH (12:00)
[2023-08-17 12:54] LABS: BODY FLUID RBC 11783 /cu. mm.; BODY FLUID WBC 706 /cu. mm.
[2023-08-17 13:56] LABS: BF LYMPHOCYTE 18 %; BF MACROPHAGE 5; BF MONOCYTE 8 %; BF TOTAL CELLS COUNTED 100
[2023-08-17 13:57] LABS: APPEARANCE BODY FLUID CLOUDY (CLEAR); SPECIMENTYPE,BODY FLUID PLEURAL; TOTAL VOLUME,BODY FLUID 1600 mL
[2023-08-17 13:58] LABS: COLOR,BODY FLUID RED (LT YELLOW)
[2023-08-17] MEDS: EPOETIN ALFA-EPBX (NON-ESRD) 10,000 UNIT/ML VIAL SQ SCH (14:23)
[2023-08-17] MEDS: MIDODRINE HCL 5 MG TABLET PO SCH (19:48)
[2023-08-17] MEDS ORDERED: VANCOMYCIN PROTOCOL PER PHARMACY IV SCH (20:30)
[2023-08-17] MEDS: ALBUTEROL 0.083% 2.5 MG/3 ML INH IH PRN (23:17)
[2023-08-17] MEDS: VANCOMYCIN 1G/250ML KIT 250 ML IV SCH (23:29)
[2023-08-18] VITALS (12 sets, daily range): BP systolic 103–148; BP diastolic 43–83; PULSE 56–113; RESP 16–20; O2SAT 100
[2023-08-18 04:06] LABS: BASOPHILS # (AUTO) 0.03 K/uL (0.00-0.20); BASOPHILS % (AUTO) 0.3 % (0.0-5.0); EOSINOPHILS # (AUTO) 0.17 K/uL (0.00-0.70); EOSINOPHILS % (AUTO) 1.9 % (0.0-8.0); HEMATOCRIT 27.3 % (36-48); IMMATURE GRANULOCYTE ABSOLUTE 0.04 K/uL (0-1); LYMPHOCYTES # (AUTO) 0.5 K/uL (1.0-4.8); LYMPHOCYTES % (AUTO) 5.6 % (21.0-51.0); MEAN CORPUSCULAR HEMOGLOBIN 34.4 pg (27.0-33.0); MEAN CORPUSCULAR HGB CONC 31.5 g/dL (32.0-36.0); MEAN CORPUSCULAR VOLUME 109.2 fL (79-99); MONOCYTES # (AUTO) 0.7 K/uL (0.1-1.0); MONOCYTES % (AUTO) 7.4 % (3.0-13.0); NEUTROPHILS # (AUTO) 7.5 K/uL (1.8-7.7); NEUTROPHILS % (AUTO) 84.4 % (40.0-77.0); PLATELET COUNT (AUTO) 227 K/uL (130-400); RED CELL DISTRIBUTION WIDTH 13.6 % (11.0-15.5); WHITE BLOOD COUNT (AUTO) 8.9 K/uL (4.8-10.8)
[2023-08-18 04:49] LABS: ALBUMIN 2.2 g/dL (3.5-5.0); BILIRUBIN,TOTAL 0.4 mg/dL (0.2-1.0); CREATININE 3.4 mg/dL (0.5-1.0); PHOSPHORUS 3.8 mg/dL (2.5-4.9); POTASSIUM 3.4 mmol/L (3.5-5.1); TOTAL PROTEIN, SERUM 5.9 g/dL (6.0-8.3)
[2023-08-18] MEDS: LEVOTHYROXINE 25 MCG TABLET PO SCH (05:30)
[2023-08-18] MEDS: Vitamin B Complex/Vit C/Folic Acid PO SCH (09:00)
[2023-08-18] MEDS: METOPROLOL TARTRATE 25 MG TAB PO SCH (09:04)
[2023-08-18] MEDS: CEFEPIME HCL 1 GM VIAL IV SCH (11:57)
[2023-08-18] MEDS: SODIUM CHLORIDE 3% FOR INHALATION 4 ML/AMP VIAL.NEB IH ONE ×3 (12:14→23:25)
[2023-08-18 13:05] LABS: INR 1.01 (0.85-1.15); PROTHROMBIN TIME 11.9 SEC (9.6-11.6)
[2023-08-18] MEDS: BALSAM PERU/CASTOR OIL 60 GM TUBE TP SCH (21:03)
[2023-08-19] VITALS (31 sets, daily range): BP systolic 94–137; BP diastolic 37–86; PULSE 67–125; RESP 16–24; TEMP 98–98.1; O2SAT 93–100
[2023-08-19] MEDS: MIDODRINE HCL 5 MG TABLET PO SCH (10:58)
[2023-08-19] MEDS: VANCOMYCIN 750MG VIAL IVPB SCH (15:18)
[2023-08-19] MEDS ORDERED: VANCOMYCIN 500MG+NS 100ML 100 ML IV SCH (16:00)
[2023-08-19] MEDS: ACETAMINOPHEN 325 MG TAB PO PRN (21:18)
[2023-08-20] VITALS (14 sets, daily range): BP systolic 83–155; BP diastolic 42–89; PULSE 71–107; RESP 16–22; O2SAT 100
[2023-08-20 03:40] LABS: BASOPHILS # (AUTO) 0.05 K/uL (0.00-0.20); BASOPHILS % (AUTO) 0.5 % (0.0-5.0); EOSINOPHILS # (AUTO) 0.15 K/uL (0.00-0.70); EOSINOPHILS % (AUTO) 1.5 % (0.0-8.0); HEMATOCRIT 29.4 % (36-48); IMMATURE GRANULOCYTE ABSOLUTE 0.04 K/uL (0-1); LYMPHOCYTES # (AUTO) 0.6 K/uL (1.0-4.8); LYMPHOCYTES % (AUTO) 5.6 % (21.0-51.0); MEAN CORPUSCULAR HEMOGLOBIN 34.6 pg (27.0-33.0); MEAN CORPUSCULAR HGB CONC 31.3 g/dL (32.0-36.0); MEAN CORPUSCULAR VOLUME 110.5 fL (79-99); MONOCYTES # (AUTO) 0.9 K/uL (0.1-1.0); MONOCYTES % (AUTO) 9.4 % (3.0-13.0); NEUTROPHILS # (AUTO) 8.1 K/uL (1.8-7.7); NEUTROPHILS % (AUTO) 82.6 % (40.0-77.0); PLATELET COUNT (AUTO) 229 K/uL (130-400); RED BLOOD CELL COUNT(AUTO) 2.66 MIL/uL (4.00-5.50); RED CELL DISTRIBUTION WIDTH 13.5 % (11.0-15.5); WHITE BLOOD COUNT (AUTO) 9.9 K/uL (4.8-10.8)
[2023-08-20 03:59] LABS: BILIRUBIN,TOTAL 0.4 mg/dL (0.2-1.0); POTASSIUM 3.8 mmol/L (3.5-5.1)
[2023-08-20 04:20] LABS: ALBUMIN 2.1 g/dL (3.5-5.0); CREATININE 3.6 mg/dL (0.5-1.0)
[2023-08-20] MEDS: FAMOTIDINE 20MG TAB PO SCH (09:00)
[2023-08-20 13:32] LABS: APPEARANCE BODY FLUID CLOUDY (CLEAR); COLOR,BODY FLUID RED (LT YELLOW); SPECIMENTYPE,BODY FLUID PLEURAL; TOTAL VOLUME,BODY FLUID 1500 mL
[2023-08-20 13:44] LABS: GLUCOSE PLEURAL FLUID 84
[2023-08-20 13:57] LABS: BODY FLUID RBC 11041 /cu. mm.; BODY FLUID WBC 564 /cu. mm.
[2023-08-20 14:38] LABS: BF LYMPHOCYTE 48 %; BF MESOTHELIAL 11 %; BF MONOCYTE 3 %; BF TOTAL CELLS COUNTED 100
[2023-08-20 15:07] LABS: PROTEIN PLEURAL FLUID 2.4 mg/dL
[2023-08-21] VITALS (24 sets, daily range): BP systolic 67–146; BP diastolic 39–102; PULSE 69–124; RESP 16–20; TEMP 97.8–98; O2SAT 100
[2023-08-21] MEDS: ALBUMIN (HUMAN) 25% 100 ML IV PRN (12:04)
[2023-08-22] VITALS (9 sets, daily range): BP systolic 90–115; BP diastolic 32–70; PULSE 68–101; RESP 18–20; O2SAT 98–100
[2023-08-22 03:47] LABS: HEMATOCRIT 28.9 % (36-48); MEAN CORPUSCULAR HEMOGLOBIN 34.7 pg (27.0-33.0); MEAN CORPUSCULAR HGB CONC 31.5 g/dL (32.0-36.0); MEAN CORPUSCULAR VOLUME 110.3 fL (79-99); RED BLOOD CELL COUNT(AUTO) 2.62 MIL/uL (4.00-5.50); RED CELL DISTRIBUTION WIDTH 13.3 % (11.0-15.5)
[2023-08-22 04:10] LABS: CREATININE 4.3 mg/dL (0.5-1.0)
[2023-08-22] MEDS: METOPROLOL TARTRATE 1 MG/ML 5ML VIAL IV ONE (12:21)
[2023-08-22] MEDS ORDERED: IPRATROPIUM 0.5 MG/2.5 ML INH IH PRN (16:30)
[2023-08-22] MEDS: BACITRACIN 1 EACH PACKET TP ONE ×2 (22:31→23:52)
[2023-08-23] VITALS (11 sets, daily range): BP systolic 96–135; BP diastolic 27–63; PULSE 60–101; RESP 18–20; O2SAT 95–100
[2023-08-23] MEDS: GUAIFENESIN SUGAR-FREE 100 MG/5 ML UDCUP PO PRN (13:34)
[2023-08-23] MEDS: MIDODRINE HCL 5 MG TABLET PO SCH (14:00)
[2023-08-24] VITALS (13 sets, daily range): BP systolic 98–158; BP diastolic 38–92; PULSE 61–106; RESP 16–20; TEMP 97.9; O2SAT 96–100
[2023-08-24 04:55] LABS: HEMATOCRIT 28.6 % (36-48); MEAN CORPUSCULAR HEMOGLOBIN 34.1 pg (27.0-33.0); MEAN CORPUSCULAR HGB CONC 31.1 g/dL (32.0-36.0); MEAN CORPUSCULAR VOLUME 109.6 fL (79-99); PLATELET COUNT (AUTO) 238 K/uL (130-400); RED BLOOD CELL COUNT(AUTO) 2.61 MIL/uL (4.00-5.50); RED CELL DISTRIBUTION WIDTH 13.4 % (11.0-15.5); WHITE BLOOD COUNT (AUTO) 11.9 K/uL (4.8-10.8)
[2023-08-24 05:14] LABS: BILIRUBIN,TOTAL 0.4 mg/dL (0.2-1.0); CREATININE 6.7 mg/dL (0.5-1.0); MAGNESIUM 1.9 mg/dL (1.80-2.40); PHOSPHORUS 4.8 mg/dL (2.5-4.9); POTASSIUM 4.4 mmol/L (3.5-5.1); TOTAL PROTEIN, SERUM 6.2 g/dL (6.0-8.3)
[2023-08-24 05:50] LABS: EOSINOPHILS % (MANUAL) 5 % (1-6); LYMPHOCYTES % (MANUAL) 7 % (22-44); MONOCYTES % (MANUAL) 6 % (2-9); SEGMENTED NEUTROPHILS % 82 % (40-70); TOTAL CELLS COUNTED 100
[2023-08-24 05:51] LABS: MAN.DIFF COMMENT-IMPRESSION MANUAL DIFFERENTIAL; PLATELET MORPHOLOGY COMMENT ADEQUATE; WBC MORPHOLOGY NORMAL
[2023-08-24] MEDS: BACITRACIN 28.4 GM OINT TP ONE (12:30)
[2023-08-24] MEDS: LEVOFLOXACIN 500 MG/D5W 100 ML 100 ML IV SCH (16:18)
[2023-08-24] MEDS: ZOSYN 3.375GM +NS 50ML IV SCH (16:18)
[2023-08-24] MEDS: DOXYCYCLINE 100MG+NS 250ML 250 ML IV SCH (17:58)
[2023-08-24] MEDS ORDERED: CEFEPIME HCL 2 GM VIAL IVPB SCH (18:00)
[2023-08-24] MEDS ORDERED: CEFEPIME HCL 1 GM VIAL IVPB SCH (18:00)
[2023-08-25] VITALS (18 sets, daily range): BP systolic 97–168; BP diastolic 41–89; PULSE 86–130; RESP 16–22; TEMP 98; O2SAT 94–99
[2023-08-25 04:06] LABS: BASOPHILS # (AUTO) 0.04 K/uL (0.00-0.20); BASOPHILS % (AUTO) 0.4 % (0.0-5.0); EOSINOPHILS # (AUTO) 0.22 K/uL (0.00-0.70); EOSINOPHILS % (AUTO) 2.2 % (0.0-8.0); HEMATOCRIT 28.7 % (36-48); IMMATURE GRANULOCYTE ABSOLUTE 0.07 K/uL (0-1); LYMPHOCYTES # (AUTO) 0.5 K/uL (1.0-4.8); LYMPHOCYTES % (AUTO) 5.1 % (21.0-51.0); MEAN CORPUSCULAR HGB CONC 31.4 g/dL (32.0-36.0); MEAN CORPUSCULAR VOLUME 105.1 fL (79-99); MONOCYTES % (AUTO) 9.5 % (3.0-13.0); NEUTROPHILS # (AUTO) 8.4 K/uL (1.8-7.7); NEUTROPHILS % (AUTO) 82.1 % (40.0-77.0); PLATELET COUNT (AUTO) 211 K/uL (130-400); RED BLOOD CELL COUNT(AUTO) 2.73 MIL/uL (4.00-5.50); RED CELL DISTRIBUTION WIDTH 13.3 % (11.0-15.5); WHITE BLOOD COUNT (AUTO) 10.2 K/uL (4.8-10.8)
[2023-08-25 04:44] LABS: BILIRUBIN,TOTAL 0.5 mg/dL (0.2-1.0); CREATININE 3.3 mg/dL (0.5-1.0); MAGNESIUM 1.9 mg/dL (1.80-2.40); PHOSPHORUS 3.2 mg/dL (2.5-4.9); POTASSIUM 3.7 mmol/L (3.5-5.1); TOTAL PROTEIN, SERUM 6.2 g/dL (6.0-8.3)
[2023-08-25] MEDS: CEFEPIME HCL 1 GM VIAL IVPB SCH (20:56)
[2023-08-26] VITALS (32 sets, daily range): BP systolic 98–160; BP diastolic 21–86; PULSE 70–132; RESP 16–21; TEMP 97.5–98; O2SAT 95–100
[2023-08-26 03:47] LABS: BASOPHILS # (AUTO) 0.04 K/uL (0.00-0.20); BASOPHILS % (AUTO) 0.4 % (0.0-5.0); EOSINOPHILS # (AUTO) 0.16 K/uL (0.00-0.70); EOSINOPHILS % (AUTO) 1.5 % (0.0-8.0); HEMATOCRIT 29.7 % (36-48); IMMATURE GRANULOCYTE ABSOLUTE 0.06 K/uL (0-1); LYMPHOCYTES # (AUTO) 0.7 K/uL (1.0-4.8); LYMPHOCYTES % (AUTO) 6.6 % (21.0-51.0); MEAN CORPUSCULAR HEMOGLOBIN 34.3 pg (27.0-33.0); MEAN CORPUSCULAR VOLUME 110.8 fL (79-99); MONOCYTES # (AUTO) 1.2 K/uL (0.1-1.0); MONOCYTES % (AUTO) 11.8 % (3.0-13.0); NEUTROPHILS # (AUTO) 8.3 K/uL (1.8-7.7); NEUTROPHILS % (AUTO) 79.1 % (40.0-77.0); PLATELET COUNT (AUTO) 240 K/uL (130-400); RED BLOOD CELL COUNT(AUTO) 2.68 MIL/uL (4.00-5.50); RED CELL DISTRIBUTION WIDTH 13.6 % (11.0-15.5); WHITE BLOOD COUNT (AUTO) 10.5 K/uL (4.8-10.8)
[2023-08-26 04:12] LABS: ALBUMIN 1.9 g/dL (3.5-5.0); BILIRUBIN,TOTAL 0.4 mg/dL (0.2-1.0); CREATININE 4.7 mg/dL (0.5-1.0); MAGNESIUM 1.8 mg/dL (1.80-2.40); PHOSPHORUS 5.3 mg/dL (2.5-4.9); POTASSIUM 4.2 mmol/L (3.5-5.1); TOTAL PROTEIN, SERUM 6.2 g/dL (6.0-8.3)
[2023-08-26] MEDS: ALBUMIN (HUMAN) 25% 100 ML IV PRN (10:52)
[2023-08-26] MEDS ORDERED: FENTANYL CITRATE PF 50 MCG/1 ML 2ML VIAL ONE (14:54)
[2023-08-26] MEDS ORDERED: MIDAZOLAM HCL 1 MG/ML 2ML VIAL ONE (14:55)
[2023-08-27] VITALS (7 sets, daily range): BP systolic 97–137; BP diastolic 63–72; PULSE 77–108; RESP 16–22; O2SAT 95–97
[2023-08-27 04:03] LABS: HEMATOCRIT 28.5 % (36-48); MEAN CORPUSCULAR HEMOGLOBIN 34.7 pg (27.0-33.0); MEAN CORPUSCULAR HGB CONC 31.9 g/dL (32.0-36.0); MEAN CORPUSCULAR VOLUME 108.8 fL (79-99); RED BLOOD CELL COUNT(AUTO) 2.62 MIL/uL (4.00-5.50); RED CELL DISTRIBUTION WIDTH 13.8 % (11.0-15.5); WHITE BLOOD COUNT (AUTO) 12.2 K/uL (4.8-10.8)
[2023-08-27 04:17] LABS: ALBUMIN 2.5 g/dL (3.5-5.0); BILIRUBIN,TOTAL 0.6 mg/dL (0.2-1.0); CREATININE 3.7 mg/dL (0.5-1.0); MAGNESIUM 1.7 mg/dL (1.80-2.40); PHOSPHORUS 4.2 mg/dL (2.5-4.9); POTASSIUM 3.9 mmol/L (3.5-5.1); TOTAL PROTEIN, SERUM 6.6 g/dL (6.0-8.3)
[2023-08-27] MEDS: MAGNESIUM 2GM PREMIX 50ML IV ONE (06:08)
[2023-08-27] MEDS ORDERED: APIXABAN 2.5 MG TABLET PO SCH (21:00)
== END 2023-08-27 17:42 | disposition home health service (06) | DRG 291 ==
LOC: EDH 22:07 → OBSVTOIN 08-17 00:24 → EDHIP 08-17 00:24 → 2DH 08-17 16:45
PROVIDERS: ADMIT Internal Medicine Critical Care Medicine; ATTEND Internal Medicine Critical Care Medicine
PROC: 5A1D70Z Performance of Urinary Filtration, Intermittent, Less than 6 Hours Per Day (ICD-10-PCS; principal; 2023-08-17)
PROC: 0W993ZZ Drainage of Right Pleural Cavity, Percutaneous Approach (ICD-10-PCS; 2023-08-17)
PROC: 5A1D70Z Performance of Urinary Filtration, Intermittent, Less than 6 Hours Per Day (ICD-10-PCS; 2023-08-19)
PROC: 0W993ZZ Drainage of Right Pleural Cavity, Percutaneous Approach (ICD-10-PCS; 2023-08-20)
PROC: 5A1D70Z Performance of Urinary Filtration, Intermittent, Less than 6 Hours Per Day (ICD-10-PCS; 2023-08-21)
PROC: 5A1D70Z Performance of Urinary Filtration, Intermittent, Less than 6 Hours Per Day (ICD-10-PCS; 2023-08-24)
PROC: 5A1D70Z Performance of Urinary Filtration, Intermittent, Less than 6 Hours Per Day (ICD-10-PCS; 2023-08-26)
PROC: 0W9930Z Drainage of Right Pleural Cavity with Drainage Device, Percutaneous Approach (ICD-10-PCS; 2023-08-26)
PROC: 0JH63XZ Insertion of Tunneled Vascular Access Device into Chest Subcutaneous Tissue and Fascia, Percutaneous Approach (ICD-10-PCS; 2023-08-26)
DX: I13.2 Hypertensive heart and chronic kidney disease with heart failure and with stage 5 chronic kidney disease, or end stage renal disease (principal); I50.33 Acute on chronic diastolic (congestive) heart failure; J96.21 Acute and chronic respiratory failure with hypoxia; N18.6 End stage renal disease; J96.22 Acute and chronic respiratory failure with hypercapnia; J18.9 Pneumonia, unspecified organism; I48.21 Permanent atrial fibrillation; M81.0 Age-related osteoporosis without current pathological fracture; L89.152 Pressure ulcer of sacral region, stage 2; I49.5 Sick sinus syndrome; I34.0 Nonrheumatic mitral (valve) insufficiency; E11.22 Type 2 diabetes mellitus with diabetic chronic kidney disease; Z20.822 Contact with and (suspected) exposure to COVID-19; I25.10 Atherosclerotic heart disease of native coronary artery without angina pectoris; E78.00 Pure hypercholesterolemia, unspecified; E66.9 Obesity, unspecified; D53.9 Nutritional anemia, unspecified; Y95 Nosocomial condition; E03.9 Hypothyroidism, unspecified; I27.20 Pulmonary hypertension, unspecified; Z79.01 Long term (current) use of anticoagulants; Z99.2 Dependence on renal dialysis; Z79.899 Other long term (current) drug therapy; Z95.1 Presence of aortocoronary bypass graft; Z68.21 Body mass index [BMI] 21.0-21.9, adult
CPT/HCPCS: 10030; 32550; 32555; 36415; 36600; 71045; 71250; 75989; 76705; 80048; 80053; 80202; 82550; 82803; 82945; 82948; 83615; 83735; 83880; 83986; 84100; 84145; 84155; 84157; 84439; 84443; 84481; 84484; 85025; 85027; 85378; 85610; 85730; 87040; 87071; 87116; 87205; 87206; 87635; 87804; 88112; 88305; 89051; 90935; 93005; 93970; 94640; C1729; G0378; J0692; J1650; J1815; J1956; J2250; J2543; J3010; J3370; J3475; J3490; P9046; A7048; C1750; Q5106

== ENCOUNTER → 2023-08-16 | Outpatient (CLI) | payer OTHER | END | disposition home or self-care (01) | LOC: WHH 07:55 | PROVIDERS: ATTEND Nurse Practitioner Family | DX: S51.811A Laceration without foreign body of right forearm, initial encounter (principal); S81.001D Unspecified open wound, right knee, subsequent encounter; E11.628 Type 2 diabetes mellitus with other skin complications; E11.22 Type 2 diabetes mellitus with diabetic chronic kidney disease; I12.0 Hypertensive chronic kidney disease with stage 5 chronic kidney disease or end stage renal disease; N18.6 End stage renal disease; E83.59 Other disorders of calcium metabolism; I48.91 Unspecified atrial fibrillation; J44.9 Chronic obstructive pulmonary disease, unspecified; I25.10 Atherosclerotic heart disease of native coronary artery without angina pectoris; I25.2 Old myocardial infarction; K21.9 Gastro-esophageal reflux disease without esophagitis; Z99.2 Dependence on renal dialysis; Z90.710 Acquired absence of both cervix and uterus; Z95.810 Presence of automatic (implantable) cardiac defibrillator; Z90.49 Acquired absence of other specified parts of digestive tract; Z79.01 Long term (current) use of anticoagulants; Z79.899 Other long term (current) drug therapy; W19.XXXD Unspecified fall, subsequent encounter; W19.XXXA Unspecified fall, initial encounter; Y93.89 Activity, other specified; Y92.89 Other specified places as the place of occurrence of the external cause; Y99.8 Other external cause status | CPT/HCPCS: G0463; A4450 ==

== ENCOUNTER → 2023-09-13 | Outpatient (CLI) | payer OTHER ==
[~2023-09-13] MED LIST changes: +ATOR40TA69 PO; -ATOR40TA71 PO; -CYAN-52 PO; +DILT120C78 PO; -FERR324T4 PO; +METO-409 PO; -Midodrine Hcl PO
== END | disposition home or self-care (01) ==
LOC: WHH 08:13
PROVIDERS: ATTEND Nurse Practitioner Family
DX: S51.811D Laceration without foreign body of right forearm, subsequent encounter (principal); S51.012A Laceration without foreign body of left elbow, initial encounter; S61.412A Laceration without foreign body of left hand, initial encounter; L89.152 Pressure ulcer of sacral region, stage 2; E11.628 Type 2 diabetes mellitus with other skin complications; E11.22 Type 2 diabetes mellitus with diabetic chronic kidney disease; I12.0 Hypertensive chronic kidney disease with stage 5 chronic kidney disease or end stage renal disease; N18.6 End stage renal disease; E83.59 Other disorders of calcium metabolism; I48.91 Unspecified atrial fibrillation; J44.9 Chronic obstructive pulmonary disease, unspecified; I25.10 Atherosclerotic heart disease of native coronary artery without angina pectoris; I25.2 Old myocardial infarction; K21.9 Gastro-esophageal reflux disease without esophagitis; Z99.2 Dependence on renal dialysis; Z90.710 Acquired absence of both cervix and uterus; Z95.810 Presence of automatic (implantable) cardiac defibrillator; Z90.49 Acquired absence of other specified parts of digestive tract; Z79.01 Long term (current) use of anticoagulants; Z79.899 Other long term (current) drug therapy; X58.XXXA Exposure to other specified factors, initial encounter; Y93.89 Activity, other specified; Y92.89 Other specified places as the place of occurrence of the external cause; Y99.8 Other external cause status
CPT/HCPCS: G0463; A6212; A4450